=== PATIENT | female | born 1945 | race Caucasian/White ===

== ENCOUNTER 2022-03-21 12:47 | Outpatient (CLI) | payer MEDICARE, OTHER, SELFPAY ==
--- NOTE | 2022-03-21 13:00 | CRLHL7_ITS ---
For Patients: As a result of the Century Cures Act, medical imaging exams and procedure reports are released immediately into your electronic medical record. You may view this report before your referring provider. If you have questions, please contact your health care provider. Indication: Lung nodules Technique: Noncontrast CT chest Comparison: CT abdomen pelvis 01/30/2021 Findings : Thyroid nodules normal caliber thoracic aorta calcified hilar lymph nodes. Heart size normal. No pericardial effusion large hiatal hernia right lower lobe granuloma. Centrilobular nodules in the right upper lobe. 4 millimeter pulmonary nodule peripheral right lower lobe on series 4, image 49 is unchanged. 4 millimeter peripheral right lower lobe nodule on series 4, image 58 is also unchanged. A tiny 2 millimeter micro nodule in the left lower lobe on image 61 is unchanged 4 millimeter left lower lobe nodule on image 67 unchanged. No effusion. A 4 millimeter medial right lower lobe nodule on image 45 is also unchanged. No suspicious bony lesions are seen. Right nephrectomy right retroperitoneal clips Impression: 1. Basilar pulmonary nodules are unchanged with no new nodules seen. Follow-up per Fleischner society guidelines. 2. Centrilobular nodules in the right upper lobe, favor infectious inflammatory processes to include atypical infections. FLEISCHNER SOCIETY GUIDELINES - SOLID NODULES: SINGLE LOW RISK - nodule less than 6 mm: No routine follow-up. - nodule 6-8 mm: CT at 6-12 months, then consider CT at 18-24 months. - nodule greater than 8 mm: Consider CT at 3 months, PET/CT or tissue sampling. SINGLE HIGH RISK - nodule less than 6 mm: Optional CT at 12 months. - nodule 6-8 mm: CT at 6-12 months, then CT at 18-24 months. - nodule greater than 8 mm: Consider CT at 3 months, PET/CT or tissue sampling. MULTIPLE LOW RISK - nodule less than 6 mm: No routine follow-up. - nodule 6-8 mm: CT at 3-6 months, then consider CT at 18-24 months. - nodule greater than 8 mm: CT at 3-6 months, then consider CT at 18-24 months. MULTIPLE HIGH RISK - nodule less than 6 mm: Optional CT at 12 months. - nodule 6-8 mm: CT at 3-6 months, then at 18-24 months. - nodule greater than 8 mm: CT at 3-6 months, then at 18-24 months. Please note that all CT scans at this facility use dose modulation, iterative reconstruction, and/or weight-based dosing when appropriate to reduce radiation dose to as low as reasonably achievable. Dictated by Bianka Davis MD @ 03/21/2022 2:12:36 PM (Electronically Signed)
== END 2022-03-21 12:48 | disposition home or self-care (01) ==
PROVIDERS: PCP Family Medicine; Visit Provider Family Medicine
DX: R91.8 Other nonspecific abnormal finding of lung field (principal)
CPT/HCPCS: 71250

== ENCOUNTER 2025-01-22 16:52 | Emergency (ER) | payer OTHER, SELFPAY ==
--- OUTSIDE RECORDS SUMMARY | 2024-12-17 09:59 | XMS_ITS | Encounter Summary ---
Author Organization [facility] Address [address] [place] [address] Care Team Providers Care Power Reactor Operator Name Role Phone None Reported, Pcp Primary Care Provider Unavail able Encounter Details Date Type Department Care Team (Latest Contact Info) Description 12/17/2024 9:59 AM CDT - 12/17/2024 11:59 PM CDT Hospital Encounter Department of Laboratory Medicine in [address] [phone] Traci Tripp M.D., Ph.D. 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 amLODIPine (Norvasc) 5 mg tablet Take 5 mg by mouth daily. 12/10/2024 cholecalciferol (Vitamin D3) 50 mcg (2,000 Unit) tablet Take 50 mcg by mouth daily. 11/19/2024 Constulose 10 gram/15 mL solution 10 g as needed. 10/21/2024 famotidine (Pepcid) 10 mg tablet Take 10 mg by mouth daily. 11/05/2024 magnesium gluconate (Mag-G) 27 mg of magnesium (500 mg) tablet Take 54 mg of magnesium by mouth 2 (two) times a day. 12/03/2024 metoprolol succinate (Toprol XL) 50 mg 24 hr tablet Take 50 mg by mouth daily. 10/08/2024 omeprazole (PriLOSEC OTC) [address] tablet Take 40 mg by mouth. 07/25/2023 ondansetron (Zofran) 4 mg tablet Take 4 mg by mouth as needed for nausea. 10/15/2024 oxyCODONE (Roxicodone) 5 mg immediate release tablet Take 5 mg by mouth 2 (two) times a day as needed. 08/28/2024 sennosides-docus ate sodium (Senokot-S) 8.6-50 mg per tablet Take 1 tablet by mouth daily as needed. 07/04/2024 thiamine (vitamin B-1) 50 mg tablet Take 50 mg by mouth daily. carvediloL (Coreg) 12.5 mg tablet Take 1 tablet (12.5 mg total) by mouth 2 (two) times a day with meals. 180 tablet 3 09/19/2024 lisinopril-hydro CHLOROthiazide (PRINZIDE,ZESTOR ETIC) 20-25 mg per tablet Take 1 tablet by mouth 2 (two) times a day. 03/24/2022 5 documented as of this encounter Plan of Treatment Upcoming Encounters Date Type Department Care Team (Late st Contact Info) Description 01/23/2025 12:30 PM CDT Appointment Department of Radiology, [facility], in [place], [place] [address] [place] [address] Perfecto Clement II, M.D. [address] [phone] 02/26/2025 8:30 AM CDT Appointment Department of Laboratory Medicine in [address] [phone] Traci Tripp M.D., Ph.D. [address] [place] [phone] 02/26/2025 8:40 AM CDT Appointment Department of Laboratory Medicine in [address] [phone] Traci Tripp M.D., Ph.D. [address] [place] [phone] 02/27/2025 10:15 AM CDT Office Visit Department of Nephrology in [address] [phone] America Matamoros APRN, C.N.P., M.S. [address] [place] [phone] documented as of this encounter Procedures Procedure Name Priority Date/Time Associated Diagnosis Comments RENAL FUNCTION PANEL, S Routine 12/17/2024 10:08 AM CDT Hypertension Essential Primary Chronic Kidney Disease (CKD), Stage 3b Glomerular Filtration Rate (GFR) 30 To 44 (HCC) Mass Kidney CYSTATIN C WITH EGFR Routine 12/17/2024 10:08 AM CDT Hypertension Essential Primary Chronic Kidney Disease (CKD), Stage 3b Glomerular Filtration Rate (GFR) 30 To 44 (HCC) Mass Kidney CBC WITH DIFFERENTIAL, B Routine 12/17/2024 10:08 AM CDT Hypertension Essential Primary Chronic Kidney Disease (CKD), Stage 3b Glomerular Filtration Rate (GFR) 30 To 44 (HCC) Mass Kidney documented in this encounter Results * (ABNORMAL) Renal Function Panel (12/17/2024 10:08 AM CDT) Potassium, P 4.1 3.6 - 5.2 mmol/L 12/17/2024 10:27 AM CDT CNFL Sodium, P 132(L) 135 - 145 mmol/L 12/17/2024 10:27 AM CDT CNFL Chloride, P 97(L) 98 - 107 mmol/L 12/17/2024 10:27 AM CDT CNFL Bicarbonate, P 22 22 - 29 mmol/L 12/17/2024 10:26 AM CDT CNFL Anion Gap, P 13 7 - 15 12/17/2024 10:27 AM CDT CNFL BUN (Blood Urea Nitrogen), P 25(H) 6 - 21 mg/dL 12/17/2024 10:26 AM CDT CNFL Creatinine 1.57(H) 0.59 - 1.04 mg/dL 12/17/2024 10:26 AM CDT CNFL Estimated GFR (eGFR) 33(L) >=60 mL/min/BSA 12/17/2024 10:26 AM CDT CNFL Comment: Estimated GFR calculated using the 2020 CKD_EPI creatinine equation. Calcium, Total, P 9.7 8.8 - 10.2 mg/dL 12/17/2024 10:26 AM CDT CNFL Glucose, P 112 70 - 140 mg/dL 12/17/2024 10:26 AM CDT CNFL Albumin, P 4.1 3.5 - 5.0 g/dL 12/17/2024 10:26 AM CDT CNFL Phosphorus (Inorganic), P 3.0 2.5 - 4.5 mg/dL 12/17/2024 10:26 AM CDT CNFL Blood (Blood, Venous) 12/17/2024 10:08 AM CDT 12/17/2024 10:09 AM CDT us Traci Landaverde M.D., Ph.D. LAB BLOOD ADD- ON Final Result [facility] [address] [place] [phone], [facility] CNFL [place] [address] * (ABNORMAL) Cystatin C with Estimated GFR (12/17/2024 10:08 AM CDT) Pathologist [facility] eGFR by Cystatin C 22(L) >60 mL/min/BSA 12/18/2024 12:42 PM CDT DTL Comment: Estimated GFR calculated using the CKD-EPI Cystatin C (2012) equation. ----ADDITIONAL INFORMATION---- Cystatin C-based eGFR may differ substantially from creatinine- based eGFR in patients with abnormal muscle mass or acutely changing renal function. Please interpret together with relevant clinical features. On 10/08/2020 the cystatin C assay method changed. Cystatin C eGFR results > 50 ml/min/1.73m2 are approximately 10% lower with the new assay. Cystatin C 2.30(H) 0.67 - 1.21 mg/L 12/18/2024 12:42 PM CDT DTL Blood (Blood, Venous) 12/17/2024 10:08 AM CDT 12/18/2024 12:22 PM CDT Traci Landaverde M.D., Ph.D. LAB BLOOD ADD- ON Final Result [facility] [address] [place] [address], [facility] [address] [place] [address] * (ABNORMAL) CBC with Differential, Blood (12/17/2024 10:08 AM CDT) Pathologist [facility] Hemoglobin 11.2(L) 11.6 - 15.0 g/dL 12/17/2024 10:12 AM CDT CNFL Hematocrit 33.4(L) 35.5 - 44.9 % 12/17/2024 10:12 AM CDT CNFL Erythrocytes 3.63(L) 3.92 - 5.13 x10(12)/L 12/17/2024 10:12 AM CDT CNFL MCV 92.0 78.2 - 97.9 fL 12/17/2024 10:12 AM CDT CNFL RBC Distrib Width 12.0(L) 12.2 - 16.1 % 12/17/2024 10:12 AM CDT CNFL Platelet Count 238 157 - 371 x10(9)/L 12/17/2024 10:12 AM CDT CNFL Leukocytes 8.4 3.4 - 9.6 x10(9)/L 12/17/2024 10:12 AM CDT CNFL Neutrophils 5.79 1.56 - 6.45 x10(9)/L 12/17/2024 10:12 AM CDT CNFL Lymphocytes 1.71 0.95 - 3.07 x10(9)/L 12/17/2024 10:12 AM CDT CNFL Monocytes 0.84(H) 0.26 - 0.81 x10(9)/L 12/17/2024 10:12 AM CDT CNFL Eosinophils 0.06 0.03 - 0.48 x10(9)/L 12/17/2024 10:12 AM CDT CNFL Basophils <0.04 0.01 - 0.08 x10(9)/L 12/17/2024 10:12 AM CDT CNFL Blood (Blood, Venous) 12/17/2024 10:08 AM CDT 12/17/2024 10:09 AM CDT us Traci Landaverde M.D., Ph.D. LAB BLOOD ADD- ON Final Result [facility] [address] [place], [place] [id number], [facility] CNFL [place] [address] documented in this encounter Visit Diagnoses Diagnosis Hypertension Essential Primary Chronic Kidney Disease (CKD), Stage 3b Glomerular Filtration Rate (GFR) 30 To 44 (HCC) Mass Kidney documented in this encounter Care Teams Power Reactor Operator Relationship Specialty Start Date End Date None Reported, Pcp PCP - General 03/22/24 documented as of this encounter
--- OUTSIDE RECORDS SUMMARY | 2024-12-17 09:59 | XMS_ITS | Encounter Summary ---
Author Organization [facility] Address [address] [place] [address] Care Team Providers Care Cesspool Cleaner Name Role Phone None Reported, Pcp Primary Care Provider Unavail able Encounter Details Date Type Department Care Team (Latest Contact Info) Description 12/17/2024 9:59 AM CDT - 12/17/2024 11:59 PM CDT Hospital Encounter Department of Laboratory Medicine in [address] [phone] Traci Tripp M.D., Ph.D. 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 [address] [phone] 02/26/2025 8:30 AM CDT Appointment Department of Laboratory Medicine in [address] [phone] Traci Tripp M.D., Ph.D. [address] [place] [phone] 02/26/2025 8:40 AM CDT Appointment Department of Laboratory Medicine in [address] [phone] Traci Tripp M.D., Ph.D. [address] [place] [phone] 02/27/2025 10:15 AM CDT Office Visit Department of Nephrology in [address] [phone] America Matamoros APRN, C.N.P., M.S. [address] [place] [phone] documented as of this encounter Procedures Procedure Name Priority Date/Time Associated Diagnosis Comments ALBUMIN, RANDOM, U Routine 12/17/2024 10 :12 AM CDT Hypertension Essential Primary Chronic Kidney Disease (CKD), Stage 3b Glomerular Filtration Rate (GFR) 30 To 44 (HCC) Mass Kidney PROTEIN/CREATININE RATIO, RANDOM, URINE Routine 12/17/2024 10:12 AM CDT Hypertension Essential Primary Chronic Kidney Disease (CKD), Stage 3b Glomerular Filtration Rate (GFR) 30 To 44 (HCC) Mass Kidney URINALYSIS WITH MICROSCOPIC Routine 12/17/2024 10:12 AM CDT Hypertension Essential Primary Chronic Kidney Disease (CKD), Stage 3b Glomerular Filtration Rate (GFR) 30 To 44 (HCC) Mass Kidney documented in this encounter Results * (ABNORMAL) Urinalysis, with Microscopic: Urine, Midstream (12/17/2024 10:12 AM CDT) Source Urine, Urine, Midstream 12/17/2024 10:12 AM CDT CNFL Clarity Clear Clear 12/17/2024 10:15 AM CDT CNFL Color Yellow 12/17/2024 10:15 AM CDT CNFL Comment: ----REFERENCE VALUE---- Colorless Yellow Eva Blood Trace(A) Negative 12/17/2024 10:15 AM CDT CNFL Nitrite Negative Negative 12/17/2024 10:15 AM CDT CNFL Leukocyte Esterase Large(A) Negative 12/17/2024 10:15 AM CDT CNFL Protein Negative mg/dL 12/17/2024 10:15 AM CDT CNFL Comment: ----REFERENCE VALUE---- Negative Trace Glucose Negative Negative mg/dL 12/17/2024 10:15 AM CDT CNFL Ketones, QI(U) Negative Negative mg/dL 12/17/2024 10:15 AM CDT CNFL Bilirubin Negative Negative 12/17/2024 10:15 AM CDT CNFL pH 6.5 5.0 - 8.0 12/17/2024 10:15 AM CDT CNFL Specific [place] 1.010 1.001 - 1.035 12/17/2024 10:15 AM CDT CNFL Urobilinogen 0.2 0.2 - 1.0 mg/dL 12/17/2024 10:15 AM CDT CNFL White Blood Cells >100(A) /hpf 12/17/2024 10:29 AM CDT CNFL Comment: ----REFERENCE VALUE---- Males: 0-3 Females: 0-10 Unknown: 0-10 Red Blood Cells Occ-2 0 - 2 /hpf 10:29 AM CDT CNFL Squamous Cells Occ-3 /hpf 12/17/2024 10:29 AM CDT CNFL Bacteria Present(A) None Seen 12/17/2024 10:29 AM CDT CNFL Urine (Urine, Midstream) 12/17/2024 10:12 AM CDT 12/17/2024 10:12 AM CDT us Traci Landaverde M.D., Ph.D. LAB URINE ORDE RABLES Final Result [facility] [address] [place] [address], [facility] CNFL [facility] in [address] [place] [address] * (ABNORMAL) Albumin, Random, Urine (12/17/2024 10:12 AM CDT) Microalbumin 22.9 mg/L 12/17/2024 1:03 PM CDT [facility] Creatinine 33 mg/dL 12/17/2024 1:03 PM CDT [facility] Albumin/Creatinin e Ratio 69(H) <25 mg/g 12/17/2024 1:03 PM CDT [facility] Urine (Urine, Midstream) 12/17/2024 10:12 AM CDT 12/17/2024 12:32 PM CDT us Traci Landaverde M.D., Ph.D. LAB URINE ORDE RABLES Final Result [facility] [address] [place] [address], [facility] in [place] [address] [place] [phone] * (ABNORMAL) Protein/Creatinine Ratio, Random, Urine (12/17/2024 10:12 AM CDT) Protein, Total, Random, U 8 mg/dL 12/17/2024 1:03 PM CDT [facility] Creatinine, Random, U 33 16 - 326 mg/dL 12/17/2024 1:03 PM CDT [facility] Protein/Creati nine Ratio 0.24(H) <0.18 mg/mg 12/17/2024 1:03 PM CDT [facility] Urine (Urine, Midstream) 12/17/2024 10:12 AM CDT 12/17/2024 12:32 PM CDT us Traci Landaverde M.D., Ph.D. LAB URINE TIFFANY GOMEZ Final Result [facility] [address] [place] [address], [facility] in [place] [address] [place] [phone] documented in this encounter Visit Diagnoses Diagnosis Hypertension Essential Primary Chronic Kidney Disease (CKD), Stage 3b Glomerular Filtration Rate (GFR) 30 To 44 (HCC) Mass Kidney documented in this encounter Care Teams Cesspool Cleaner Relationship Specialty Start Date End Date None Reported, Pcp PCP - General 03/22/24 documented as of this encounter
--- OUTSIDE RECORDS SUMMARY | 2024-12-19 10:30 | XMS_ITS | Encounter Summary ---
Author Organization [facility] Address [address] [place] [address] Care Team Providers Care Video Intern Name Role Phone None Reported, Pcp Primary Care Provider Unavail able Reason for Referral * Outpatient (Routine) - Authorized Specialty Diagnoses / Procedures Referred By Kimani mcintosh Referred To Contact Nephrology and Hypertension Traci Tripp M.D., Ph.D. [address] [place] [phone] Phone: tel: fax: [facility] Region Referral ID Status Reason Start Date Expiration Date V isits Requested Visits Authorized [id number] Authorized 12/19/2024 06/20/2026 1 1 Reason for Visit * Reason Comments Follow-up * Outpatient (Routine) - Closed Specialty Diagnoses / Procedures Referred By Kimani mcintosh Referred To Contact Nephrology and Hypertension Traci Tripp M.D., Ph.D. [address] [place] [phone] Phone: tel: fax: [facility] Region Referral ID Status Reason Start Date Expiration Date Visits Re quested Visits Authorized [id number] Closed 09/19/2024 03/21/2026 1 1 Encounter Details Date Type Department Care Team (Late st Contact Info) Description 12/19/2024 10:30 AM CDT Office Visit Department of Nephrology in [address] [phone] Traci Tripp M.D., Ph.D. [address] [place] [phone] Chronic Kidney Disease (CKD), Stage 3b Glomerular Filtration Rate (GFR) 30 To 44 (HCC) (Primary Dx); Urinary Tract Infection Site Not Specified Discharge Disposition: Home or Self Care Social [...] PM CDT Legal Sex Female 10:56 PM WOOD [employer] Gender Identity Not on file Sexual Orientation Not on file documented as of this encounter Last Filed Vital Signs Vital Sign Reading Time Taken Comments Blood Pressure 153/79 12/19/2024 10:24 AM CDT Pulse 77 12/19/2024 10:22 AM CDT Temperature 36.8 C (98.2 F) 12/19/2024 10:22 AM CDT Respiratory Rate - - Oxygen Saturation 97% 12/19/2024 10: 22 AM CDT Inhaled Oxygen Concentration - - Weight 80.7 kg (177 lb 14.6 oz) 025 10:22 AM CDT Height - - Body Mass Index 36.35 12/07/2023 7:55 AM CDT documented in this encounter Progress Notes * Traci Tripp M.D., Ph.D. - 12/19/2024 10:30 AM CDT PROGRESS NOTE The patient verbally consented to an audio recording of their visit to assist with the completion of documentation. SUBJECTIVE CHIEF COMPLAINT / REASON FOR VISIT Follow up CKD 3B-4 Acquired solitary kidney due to hx of RCC s/p nephrectomy 30 years ago Left renal mass under surveillance by Urology Hypertension management HISTORY OF PRESENT ILLNESS History of Present Illness Mrs. Preeti Corbin is an 79 year old female with chronic kidney disease who presents for nephrology follow-up. Her blood pressure at home has been around 150s-160s/79 mmHg, sometimes lower, but she has not beenmonitoring it regularly. She is currently on lisinopril, HCTZ, amlodipine, and carvedilol for bloodpressure management. Her kidney function has been stable, with a creatinine level of 1.57 and cystatin C of 2.3. She is concerned about the long-term stability of her kidney function. She has symptoms suggestive of a urinary tract infection, including dysuria and reduced urine output. She has experienced similar symptoms in the past, which were confirmed as a UTI. She is allergic to sulfa and penicillin, and has had nausea with Cipro. No fever or other systemic symptoms related to the urinary tract infection. She experiences swelling in her legs, which has been managed with diuretics. Her weight can increase to about 180 pounds, and her legs feel like 'tree stumps'. She was previously on Lasix, which she tolerated well except for occasional stomach upset. She has been using diuretics intermittently based on swelling. She lives with her daughter, which she finds stressful due to differing opinions, particularly about political topics. This stress may be affecting her blood pressure. She tries to manage stress by walking, meditating, and praying. OBJECTIVE BP 153/79 Pulse 77 Temp 36.8 ??C Wt 80.7 kg SpO2 97% BMI 36.35 kg/m?? PHYSICAL EXAMINATION Physical Exam VITALS: BP- 153/79 MEASUREMENTS: Weight- 180. DIAGNOSTICS I have reviewed available labs in detail with patient. ASSESSMENT / PLAN #1 Urinary Tract Infection Site Not Specified #2 Chronic Kidney Disease (CKD), Stage 3b Glomerular Filtration Rate (GFR) 30 To [address]) Assessment & Plan Chronic Kidney Disease Stage 3-4 Chronic kidney disease is well-managed with creatinine at 1.57 and cystatin C at 2.3, indicating function between stage 3 and stage 4. Kidney function remains stable compared to the last visit. Bloodpressure control is crucial to prevent further kidney damage. Monitor kidney function with labs in February and adjust blood pressure medications to improve control. Hypertension Blood pressure is 153/79, indicating suboptimal control. Stress from her living situation may contribute to elevated blood pressure. Adjust the antihypertensive regimen to achieve better control and prevent kidney damage. Increase carvedilol to 25 mg, change lisinopril to once daily without hydrochlorothiazide (due to hyponatremia seen in labs), and start furosemide (Lasix) 20 mg, adjusting as nee ded during next visit if well tolerated. Monitor blood pressure regularly and encourage stress management techniques such as walking, meditation, and prayer. Peripheral Edema She experiences recurrent leg swelling, exacerbated by the use of amlodipine. Swelling improved with Lasix in the past, hydrochlorothiazide may contribute to low sodium levels. Although Lasix contains sulfa, she has tolerated it in the past with only mild stomach upset. Discontinue hydrochlorothiazide, start furosemide (Lasix) 20 mg, and adjust as needed. Monitor for improvement in edema, she mayneed to be off amlodipine if swelling is not improved. Recurrent Urinary Tract Infection She reports symptoms consistent with a urinary tract infection, including sensation and urgency. Previous tests confirmed infection. Allergies to sulfa, penicillin, and ciprofloxacin complicate antibiotic selection. Obtain a urine culture to identify the causative organism and guide treatment. Prescribe an appropriate antibiotic based on culture results, avoiding known allergies. Patient has Hx of RCC s/p right nephrectomy 30 years ago Left renal mass under surveillance by Urology Return visit in 2 months documented in this encounter Plan of Treatment Upcoming Encounters Date Type Department Care Team (Late st Contact Info) Description 01/23/2025 12:30 PM CDT Appointment Department of Radiology, [facility], in [place], [place] [address] [place] [phone] Perfecto Clement II, M.D. [address] [phone] 02/26/2025 8:30 AM CDT Appointment Department of Laboratory Medicine in [address] [phone] Traci Tripp M.D., Ph.D. [address] [place] [phone] 02/26/2025 8:40 AM CDT Appointment Department of Laboratory Medicine in [address] [phone] Traci Tripp M.D., Ph.D. [address] [place] [phone] 02/27/2025 10:15 AM CDT Office Visit Department of Nephrology in [address] [phone] America Matamoros APRN, C.N.PAminata, M.S. [address] [place] [phone] Scheduled Orders Name Type Priority Associated Diagnoses Orde r Schedule CBC with Differential, Blood Lab Routine Chronic Kidney Disease (CKD), Stage 3b Glomerular Filtration Rate (GFR) 30 To 44 (HCC) Expected: 02/18/2025 (Approximate), Expires: 05/19/2025 Cystatin C with Estimated GFR Lab Routine Chronic Kidney Disease (CKD), Stage 3b Glomerular Filtration Rate (GFR) 30 To 44 (HCC) Expected: 02/18/2025 (Approximate), Expires: 05/19/2025 Protein/Creatinine Ratio, Random, Urine Lab Routine Chronic Kidney Disease (CKD), Stage 3b Glomerular Filtration Rate (GFR) 30 To 44 (HCC) Expected: 02/18/2025 (Approximate), Expires: 05/19/2025 Renal Function Panel Lab Routine Chronic Kidney Disease (CKD), Stage 3b Glomerular Filtration Rate (GFR) 30 To 44 (HCC) Expected: 02/18/2025 (Approximate), Expires: 05/19/2025 Albumin, Random, Urine Lab Routine Chronic Kidney Disease (CKD), Stage 3b Glomerular Filtration Rate (GFR) 30 To 44 (HCC) Expected: 02/18/2025 (Approximate), Expires: 05/19/2025 Urinalysis, with Microscopic: Urine, Midstream Lab Routine Chronic Kidney Disease (CKD), Stage 3b Glomerular Filtration Rate (GFR) 30 To 44 (HCC) Expected: 02/18/2025 (Approximate), Expires: 05/19/2025 Scheduled Referrals Name Type Priority Associated Diagnoses Order Schedule Nephrology and Hypertension office visit (clinic) Outpatient Referral Routine Expected: 02/18/2025 (Approximate), Expires: 05/19/2025 documented as of this encounter Results * (ABNORMAL) Basic Metabolic Panel (01/03/2025 8:11 AM CDT) Potassium, P 4.1 3.6 - 5.2 mmol/L 01/03/2025 8:36 AM CDT CNFL Sodium, P 139 135 - 145 mmol/L 01/03/2025 8:36 AM CDT CNFL Chloride, P 104 98 - 107 mmol/L 01/03/2025 8:36 AM CDT CNFL Bicarbonate, P 21(L) 22 - 29 mmol/L 01/03/2025 8:36 AM CDT CNFL Anion Gap, P 14 7 - 15 01/03/2025 8:36 AM CDT CNFL BUN (Blood Urea Nitrogen), P 20 6 - 21 mg/dL 01/03/2025 8:36 AM CDT CNFL Creatinine 1.37(H) 0.59 - 1.04 mg/dL 01/03/2025 8:36 AM CDT CNFL Estimated GFR (eGFR) 39(L) >=60 mL/min/BSA 01/03/2025 8:36 AM CDT CNFL Comment: Estimated GFR calculated using the 2020 CKD_EPI creatinine equation. Calcium, Total, P 9.6 8.8 - 10.2 mg/dL 01/03/2025 8:36 AM CDT CNFL Glucose, P 98 70 - 140 mg/dL 01/03/2025 8:36 AM CDT CNFL Blood (Blood, Venous) 01/03/2025 8:11 AM CDT 01/03/2025 8:16 AM CDT us Traci Landaverde M.D., Ph.D. LAB BLOOD ADD- ON Final Result [facility] [address] [place] [phone], [facility] CNFL [facility] in [address] [phone] * Bacterial Culture, Aerobic + Susceptibility, Urine (12/19/2024 11:09 AM CDT) Urine Culture No growth after 1 day of incubation. 12/20/2024 10:16 AM CDT ECLR Urine (Urine, Midstream) 12/19/2024 11:09 AM CDT 12/19/2024 3:02 PM CDT Comment:Specimen Source Site : Urine us Traci Landaverde M.D., Ph.D. LAB MICROBIOLO GY - GENERAL ORDERABLES Final Result [facility] [address] [place] [id number], [facility] ECLR [facility] in [address] [address] documented in this encounter Visit Diagnoses Diagnosis Chronic Kidney Disease (CKD), Stage 3b Glomerular Filtration Rate (GFR) 30 To 44 (HCC)- Primary Urinary Tract Infection Site Not Specified documented in this encounter Care Teams Video Intern Relationship Specialty Start Date End Date None Reported, Pcp PCP - General 03/22/24 documented as of this encounter
--- OUTSIDE RECORDS SUMMARY | 2024-12-19 10:48 | XMS_ITS | Encounter Summary ---
Author Organization [facility] Address [address] [place] [address] Care Team Providers Care Spudder Name Role Phone None Reported, Pcp Primary Care Provider Unavail able Encounter Details Date Type Department Care Team (Latest Contact Info) Description 12/19/2024 10:48 AM CDT - 12/19/2024 11:59 PM CDT Hospital Encounter Department of Laboratory Medicine in [address] [phone] Traci Tripp M.D., Ph.D. [address] [place] [phone] Urinary Tract Infection Site Not Specified Discharge [...] PM CDT Legal Sex Female 10:56 PM RN COMPLIANCE Gender Identity Not on file Sexual Orientation Not on file documented as of this encounter Medications at Time of Discharge acetaminophen (TYLENOL) 500 mg capsule Take 2 capsules by mouth 2 (two) times a day as needed for pain. amLODIPine (Norvasc) 5 mg tablet Take 5 mg by mouth daily. 12/10/2024 carvediloL (Coreg) 25 mg tablet Take 1 tablet (25 mg total) by mouth 2 (two) times a day with meals. 180 tablet 3 12/19/2024 cholecalciferol (Vitamin D3) 50 mcg (2,000 Unit) tablet Take 50 mcg by mouth daily. 11/19/2024 Constulose 10 gram/15 mL solution 10 g as needed. 10/21/2024 famotidine (Pepcid) 10 mg tablet Take 10 mg by mouth daily. 11/05/2024 furosemide (Lasix) 20 mg tablet Take 1 tablet (20 mg total) by mouth daily. 90 tablet 3 12/19/2024 lisinopriL 40 mg tablet Take 1 tablet (40 mg total) by mouth daily. 90 tablet 3 12/19/2024 magnesium gluconate (Mag-G) 27 mg of magnesium [...] tablet Take 50 mg by mouth daily. documented as of this encounter Plan of Treatment Upcoming Encounters Date Type Department Care Team (Late st Contact Info) Description 01/23/2025 12:30 PM CDT Appointment Department of Radiology, [facility], in [place], [place] [address] [place] [phone] Perfecto Clement II, M.D. [address] [phone] 02/26/2025 8:30 AM CDT Appointment Department of Laboratory Medicine in [place] [phone] Traci Tripp M.D., Ph.D. [address] [place] [phone] 02/26/2025 8:40 AM CDT Appointment Department of Laboratory Medicine in [address] [phone] Traci Tripp M.D., Ph.D. [address] [place] [phone] 02/27/2025 10:15 AM CDT Office Visit Department of Nephrology in [address] [phone] America Matamoros APRN, C.N.P., M.S. [address] [place] [phone] documented as of this encounter Procedures Procedure Name Priority Date/Time Associated Diagnosis Comments BACTERIAL CULTURE, AEROBIC + SUSC, URINE Routine 12/19/2024 11:09 AM CDT Urinary Tract Infection Site Not Specified documented in this encounter Results * Bacterial Culture, Aerobic + Susceptibility, Urine (12/19/2024 11:09 AM CDT) Urine Culture No growth after 1 day of incubation. 12/20/2024 10:16 AM CDT ECLR Urine (Urine, Midstream) 12/19/2024 11:09 AM CDT 12/19/2024 3:02 PM CDT Comment:Specimen Source Site : Urine us Traci Landaverde M.D., Ph.D. LAB MICROBIOLO GY - GENERAL ORDERABLES Final Result [facility] [address] [place] [address], [facility] ECLR [facility] in [place] [address] [place] [address] documented in this encounter Visit Diagnoses Diagnosis Urinary Tract Infection Site Not Specified documented in this encounter Care Teams Spudder Relationship Specialty Start Date End Date None Reported, Pcp PCP - General 03/22/24 documented as of this encounter
--- OUTSIDE RECORDS SUMMARY | 2024-12-26 08:40 | XMS_ITS | Encounter Summary ---
Author Organization [facility] er Address [address] [place] [address] Care Team Providers Care Senior Director Of Global Commercial Technology Solutions Name Role Phone Perfecto Clement MD Primary Care Provider + [phone] Reason for Visit * Reason Comments Follow-up Echo Encounter Details Date Type Department Care Team (Late st Contact Info) Description 12/26/2024 8:40 AM CDT Office Visit [place] [address] [facility] [address] [place] [address] [place] [address] [place] [phone] Chronic diastolic heart failure (HCC) (Primary Dx); Essential (primary) hypertension; Chronic renal failure, stage 3b (HCC); H/O right nephrectomy; Prediabetes; Neuropathic pain Social History Tobacco Use Types Packs/Day Years Used Date Smoking Tobacco: Never Passive Smoke Exposure: Never Smokeless Tobacco: Never Tobacco Cessation:Counseling Given: Not Answered Alcohol Use Standard Drinks/Week Comments Yes 0 (1 standard drink = 0.6 oz pur e alcohol) Rarely B1300 Health Literacy Answer Date Recor ded How often do you need to hav e someone help you when you read instructions, pamphlets, or other written material from your doctor or pharmacy? Never 07/04/2024 [employer] Utilities Answer Date Recorded In the past 12 months has e [employer], gas, oil, or water [employer] threatened to shut off services in your home? No 07/04/2024 Humiliation, Afraid, Rape, and Kick questionnair e Answer Date Recorded Within the last year, have y ou been afraid of your partner or ex-partner? No 07/04/2024 Within the last year, have y ou been humiliated or emotionally abused in other ways by your partner or ex-partner? No Within the last year, have y ou been kicked, hit, slapped, or otherwise physically hurt by your partner or ex-partner? No 07/04/2024 Within the last year, have y ou been raped or forced to have any kind of sexual activity by your partner or ex-partner? No 07/04/2024 Social Connection and Isolation Panel [NHANES] A nswer Date Recorded In a typical week, how many times do you talk on the phone with family, friends, or neighbors? Twice a week 07/04/2024 How often do you get together with friends or re latives? Once a week 07/04/2024 How often do you attend oriental orthodox or roman catholic serv ices? Never 07/04/2024 Do you belong to any clubs o r organizations such as oriental orthodox groups, unions, fraternal or athletic groups, or school groups? No 07/04/2024 How often do you attend meet ings of the clubs or organizations you belong to? Never 07/04/2024 Are you , , di vorced, , never , or living with a partner? 07/04/2024 AUDIT-C Answer Date Recorded Q1: How often do you have a drink containing alcohol? Never 07/04/2024 Q2: How many drinks containi ng alcohol do you have on a typical day when you are drinking? Patient does not drink Q3: How often do you have si x or more drinks on one occasion? Never 07/04/2024 Overall Financial Resource Strain (CARDIA) Answe r Date Recorded How hard is it for you to pa y for the very basics like food, housing, medical care, and heating? Not very hard 07/04/2024 PHQ-2 Answer Date Recorded PHQ-9 Total Score 0 10/08/2024 [facility] [place] of Occupat ional Health - Occupational Stress Questionnaire Answer Date Recorded Do you feel stress - tense, restless, nervous, or anxious, or unable to sleep at night because your mind is troubled all the time - these days? Not at all 07/04/2024 Exercise Vital Sign Answer Date Recorde d On average, how many days pe r week do you engage in moderate to strenuous exercise (like a brisk walk)? 1 day 07/04/2024 On average, how many minutes do you engage in exercise at this level? 20 min 07/04/2024 Hunger Vital Sign Answer Date Recorded Within the past 12 months, y ou worried that your food would run out before you got the money to buy more. Never true 07/04/19 25 Within the past 12 months, t he food you bought just didn't last and you didn't have money to get more. Never true 07/04/2024 PRAPARE - Transportation Answer Date Re corded In the past 12 months, has l ack of transportation kept you from medical appointments or from getting medications? No 06/16 In the past 12 months, has l ack of transportation kept you from meetings, work, or from getting things needed for daily living? No 07/04/2024 Housing Stability Vital Sign Answer Sharath e Recorded In the last 12 months, was t here a time when you were not able to pay the mortgage or rent on time? No 09/20/2023 In the last 12 months, how many places have you lived? 1 09/20/2023 In the last 12 months, was t here a time when you did not have a steady place to sleep or slept in a prison (including now)? No 09/20/2023 Housing Stability Vital Sign Answer Sharath e Recorded In the last 12 months, was t here a time when you were not able to pay the mortgage or rent on time? No 07/04/2024 In the past 12 months, how m any times have you moved where you were living? 0 07/04/2024 At any time in the past 12 m [facility], were you homeless or living in a prison (including now)? No 07/04/2024 Interpersonal Safety Questionnaire Answer Date Recorded How often does anyone, misha farfan family and friends, physically hurt you? Never 07/04/2024 How often does anyone, misha farfan family and friends, insult or talk down to you? Never 07/04/2024 How often does anyone, misha farfan family and friends, threaten you with harm? Never 07/04/2024 How often does anyone, inclu ding family and friends, threaten you with harm? Never 07/04/2024 Education Answer Date Recorded What is the highest level of school you have completed or the highest degree you have received? Master's degree (e.g., MA, MS, Nicolette, MEd, MIDDLE SCHOOL PE TEACHER, YVAN) 02/02/2021 Comments No Sex and Gender Information Value Date Recorded Sex Assigned at Not on file Legal Sex Female 9:10 PM CDT Gender Identity Not on file Sexual Orientation Not on file Occupation Industry Job Start Date Job End Date Retired Not on file Not on file Not on file documented as of this encounter Last Filed Vital Signs Vital Sign Reading Time Taken Comments Blood Pressure 166/76 12/26/2024 8:35 AM CDT Pulse 64 12/26/2024 8:35 AM CDT Temperature 37.1 C (98.8 F) 12/26/2024 8:35 AM CDT Respiratory Rate 16 12/26/2024 8:35 AM CDT Oxygen Saturation 98% 12/26/2024 8:35 AM CDT Inhaled Oxygen Concentration - - Weight 80.1 kg (176 lb 8 oz) 12/26/2024 8:35 AM CDT Height - - Body Mass Index 35.63 11/12/2024 9:57 AM CDT documented in this encounter Progress Notes * Paul Osorio MD - 12/26/2024 8:40 AM CDT Images from the original note were not included. CARDIOLOGY OUTPATIENT SUBSEQUENT VISIT NOTE CHIEF COMPLAINT/REASON FOR VISIT Follow-up on echocardiogram results HISTORY OF PRESENT ILLNESS/PAST CARDIAC HISTORY Preeti Corbin is a 79 y.o. female who is here for follow-up of echocardiogram results. In the interim, she has continued to follow with PCP Dr. Clement, with a focus on longitudinal renal functionand blood pressure. Denies currently orthopnea, or PND, she does have some intermittent lower extremity edema that appears to be dependent. She did see Dr. Martinez from nephrology at [place] with very good recommendations. DIAGNOSTICS Comprehensive TTE 12/04/2024 VISIT DIAGNOSES 1. Chronic diastolic heart failure (HCC) 2. Essential (primary) hypertension 3. Chronic renal failure, stage 3b (HCC) 4. H/O right nephrectomy 5. Prediabetes 6. Neuropathic pain ASSESSMENT / PLAN We did spend the majority of the time this morning discussing about the results of the echocardiogram and the clinical significance. As previously mentioned, based on her initial presenting congestive symptoms, and with the current echocardiogram findings, my impression is that she does have a phenotype of chronic diastolic heart failure. We spoke about natural history, potential triggers, dietary considerations, symptoms and signs, as well as longitudinal treatment strategies and prognosis. At this point she appears to be euvolemic, [place] heart association class I, which is supported by the normal central venous pressures. Nephrology provided some interim recommendations, we appreciate teamwork and assistance, changes and prescriptions were provided and she already picked those from the family fare but wanted to check with myself and Dr. Clement about adequacy of recommendations. Plan - I agree with the recommendations from Dr. Martinez from Nephrology, discontinuation of hydrochlorothiazide, substitution by furosemide which would be most consistent with her diagnosis and long-term management, torsemide can also be a future option if we find problems with recurrent congestive symptoms - I agree with the recommendation on adding carvedilol as a substitution for metoprolol for improved blood pressure control, which is a major target for decreasing cardiovascular and renal morbidity and mortality, ideal goal less than 130/80 mmHg and average - She will continue to follow with Dr. Clement longitudinally, I also instructed her on dietary changes the importance of sodium, and wearing compression garments, she does not like the typical elasticones, perhaps there may be a vendor in the area that works with custom Velcro garments, which she would be open to trying - As she follows with Dr. Clement, and we make advances in normalization of blood pressure, consideration could be given to the addition of empagliflozin 10 mg daily, in order to mitigate progression of her CKD and long-term management of chronic diastolic heart failure (both FDA approved indications, although they could require a prior Auth) I would like to meet with Mrs. Corbin in about 6 months to continue team collaboration and cardiovascular surveillance. Thank you so much for your referral, please let us know if there are any additional questions or changes in status/developments. MARGIN CODE [id number] Total time: 40 min, including electronic medical records and diagnostic testing review, direct [id number] contact, counseling and education, and preparation of clinical documentation. documented in this encounter Plan of Treatment Not on file documented as of this encounter Visit Diagnoses Diagnosis Chronic diastolic heart failure (HCC)- Primary Chronic diastolic heart failure Essential (primary) hypertension Unspecified essential hypertension Chronic renal failure, stage 3b (HCC) H/O right nephrectomy Prediabetes Other abnormal glucose Neuropathic pain documented in this encounter Care Teams Senior Director Of Global Commercial Technology Solutions Relationship Specialty Start Date End Date Perfecto Clement MD [address] [place] [address] PCP - General Family Medicine 02/02/21 documented as of this encounter
--- OUTSIDE RECORDS SUMMARY | 2024-12-26 10:00 | XMS_ITS | Encounter Summary ---
Author Organization [facility] er Address [address] [place] [address] Care Team Providers Care Chief Cloth Finishing Range Operator Name Role Phone Perfecto Clement MD Primary Care Provider [phone] Reason for Visit * Reason Comments UTI Encounter Details Date Type Department Care Team (Late st Contact Info) Description 12/26/2024 10:00 AM CDT Office Visit [address] [address] Perfecto Clement MD [address] [place] [phone] Urinary frequency (Primary Dx); Essential (primary) hypertension; Gastroesophageal reflux disease, unspecified whether esophagitis present; Chronic renal failure, stage 3b (HCC); Chronic bilateral low back pain with bilateral sciatica Social History Tobacco Use Types Packs/Day Years Used Date Smoking Tobacco: Never Passive Smoke Exposure: Never Smokeless Tobacco: Never Alcohol Use Standard Drinks/Week Comments Yes 0 (1 standard drink = 0.6 oz pur e alcohol) Rarely B1300 Health Literacy Answer Date Recor ded How often do you need to hav e someone help you when you read instructions, pamphlets, or other written material from your doctor or pharmacy? Never 07/04/2024 [facility] Utilities Answer Date Recorded In the past 12 months has e [employer], gas, oil, or water [employer] threatened to shut off services in your [...] often do you attend oriental orthodox or presybeterian serv ices? Never 07/04/2024 Do you belong [...] Date Recorded PHQ-9 Total Score 0 10/08/2024 [facility] [place] of Occupat ional Health - Occupational Stress [...] place to sleep or slept in a chcf (including now)? No 09/20/2023 Housing Stability Vital Sign Answer Sharath e Recorded In the last 12 months, was t here a time when you were not able to pay the mortgage or rent on time? No 07/04/2024 In the past 12 months, how m any times have you moved where you were living? 0 07/04/2024 At any time in the past 12 m [facility], were you homeless or living in a chcf (including now)? No 07/04/2024 Interpersonal Safety Questionnaire Answer Date Recorded How often does anyone, misha farfan family and friends, physically hurt you? Never 07/04/2024 How often does anyone, misha farfan family and friends, insult or talk down to you? Never 07/04/2024 How often does anyone, misha farfan family and friends, threaten you with harm? Never 07/04/2024 How often does anyone, inclu adolph family and friends, threaten you with harm? Never 07/04/2024 Education Answer Date Recorded What is the highest level of school you have completed or the highest degree you have received? Master's degree (e.g., MA, MS, Nicolette, MEd, TRAVELING CRANE OPERATOR, YVAN) 02/02/2021 Comments No Sex and Gender [...] Time Taken Comments Blood Pressure 166/76 12/26/2024 9:35 AM CDT Pulse 64 12/26/2024 9:35 AM CDT Temperature 37.1 C (98.8 F) 12/26/2024 9:35 AM CDT Respiratory Rate 16 12/26/2024 9:35 AM CDT Oxygen Saturation 98% 12/26/2024 9:35 AM CDT Inhaled Oxygen Concentration - - Weight 80.2 kg (176 lb 12.8 oz) 12/26/2024 9:35 AM CDT Height - - Body Mass Index 35.69 11/12/2024 9:57 AM CDT documented in this encounter Patient Instructions * Patient Instructions* Perfecto Clement MD - 12/26/2024 10:00 AM CDT Keep your follow up with your Structural Steel Worker Apprentice in 2 months. Split the Carvedilol in half, take twice per day. Make sure to wear wrist brace when sleeping. documented in this encounter Progress Notes * Perfecto Clement MD - 12/26/2024 10:00 AM CDT Preeti Corbin is a 79 y.o. female here for the following: Chief Complaint Patient presents with UTI History of Present Illness The patient presents with hematuria, left shoulder pain, right carpal tunnel syndrome, and gastrointestinal symptoms. She reports a single instance of a quarter-sized red spot on her underwear last week, without dysuria or increased frequency. Urine analysis today showed trace blood and white cells. She feels a constant urge to urinate with variable volume. She is unsure of her last pelvic exam and wonders if her enlarged uterus could be the source of bleeding. She has known uterine fibroids. Left shoulder pain worsens with lifting or carrying groceries. She recalls a fall on ice a year agobut had no immediate pain. 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 She uses Tylenol and oxycodone for pain. She wears a brace for carpal tunnel syndrome but inconsistently, removing it during sleep. She experiences pain while driving and hand weakness when carrying groceries, so has been wearing the brace more so during the day and if driving. Gastrointestinal symptoms include loss of appetite, sharp pain, frequent burping, and gas. She has not had an endoscopy and is overdue for a colonoscopy due to hx of diverticulitis. Adding pepcid to her omeprazole did provide some relief. She uses a stool softener for constipation which is effective. Muscle cramps have significantly improved. She takes vitamin D. She has been prescribed Lasix but has not started it due to a delay in obtaining the Rx. Her Structural Steel Worker Apprentice thought she was on Carvedilol 12.5 mg but she was not (she is on metoprolol due to not tolerating carvedilol). Objective Vitals: 12/26/24 0935 BP: (!) 166/76 BP Location: Left arm Patient Position: Sitting BP Cuff Size: Adult Pulse: 64 Resp: 16 Temp: 37.1 ??C (98.8 ??F) TempSrc: Temporal SpO2: 98% Weight: 80.2 kg (176 lb 12.8 oz) Physical Exam General Appearance: Normal. Throat: Normal. Neck: Normal. Back, Musculoskeletal: Pain elicited in the anterior left shoulder at bicipital insertion site. No impingement signs, labral tear signs, or rotator cuff tear signs. No swelling or redness. Results - Labs: - Urine done today: Trace blood and white cells - Kidney function done at [facility] several days ago: Stable Creatinine, hyponatremia. - Diagnostic Testing: - Urine culture done several days ago at [facility]: No bacterial growth Assessment & Plan Hematuria vs vaginal bleeding (second instance of this in the past several months) and urinary urgency (chronic): Urine culture negative for infection; trace blood and white cells noted. Kidney function stable. Pelvic exam scheduled next week; ultrasound of uterus if bleeding source unclear. - Plan: - Pelvic exam next week - Ultrasound of uterus if bleeding source unclear - Discussed limiting bladder irritants (for her she drinks diet pepsi once per day and lemonade); scheduling bathroom breaks and pelvic floor muscle strengthening Left shoulder pain: Likely biceps tendinitis. - Plan: - Rest - Physical therapy if needed - Steroid injections discussed could be done if needed Carpal tunnel syndrome: Advised consistent use of wrist brace, especially during sleep. - Plan: - Use wrist brace consistently, especially during sleep Gastrointestinal issues: Symptoms include early satiety, gas, and burping. Pepcid prescription to be renewed. [facility] GI consultation scheduled 01/21/2025. - Plan: - Renew Pepcid prescription and continue omeprazole - GI consultation January Medication management: Continue vitamin D daily. Start carvedilol at lower dose (12.5 mg BID), splitting the 25 mg pills twice daily; discontinue metoprolol. Take Lasix as prescribed. - Plan: - Continue vitamin D daily - Start carvedilol at lower dose, splitting pills twice daily - Discontinue metoprolol - Take Lasix as prescribed - Refilled her oxycodone 5 mg; takes once per day as needed and this condition is stable. CHFpEF and CKD stage III-IV - Continue co-mgt with [facility] and [facility] - Consider addition of SGLT-2 inhibitor if feasible for patient in the future (though as above urinary symptoms will be cautious with this) Cramps: Significant improvement reported. - Plan: - Monitor for any recurrence Follow-up: Pelvic exam next week Diagnosis Plan 1. Urinary frequency Urinalysis with reflex microscopic 2. Essential (primary) hypertension 3. Gastroesophageal reflux disease, unspecified whether esophagitis present famotidine (PEPCID) 10 MG tablet 4. Chronic renal failure, stage 3b (HCC) famotidine (PEPCID) 10 MG tablet 5. Chronic bilateral low back pain with bilateral sciatica oxyCODONE (Roxicodone) 5 MG immediate release tablet Total time spent in patient care was over 30 minutes which included the pre- work, visit work, and post-visit work. documented in this encounter Plan of Treatment Not on file documented as of this encounter Results * (ABNORMAL) Urinalysis with reflex microscopic (12/26/2024 10:11 AM CDT) Type CLEAN CATCH 12/26/2024 10:13 AM CDT [facility] [place] Color, Urine YELLOW YELLOW 12/26/2024 10:13 AM CDT [facility] [place] Clarity, Urine CLEAR CLEAR 12/26/2024 10:13 AM CDT [facility] [place] Glucose, Urine NEGATIVE NEGATIVE mg/dL 12/26/2024 10:13 AM CDT [facility] [place] Bilirubin, Urine NEGATIVE NEGATIVE 12/26/2024 10:13 AM CDT [facility] [place] Ketones, Urine NEGATIVE NEGATIVE mg/dL 12/26/2024 10:13 AM CDT [facility] [place] Specific [place], Urine 1.015 1.000 ->=1.030 12/26/2024 10:13 AM CDT [facility] [place] Blood, Urine TRACE(A) NEGATIVE 12/26/2024 10:13 AM CDT [facility] [place] pH, Urine 5.5 5.0 - 7.0 12/26/2024 10:13 AM CDT [facility] [place] Protein, Urine NEGATIVE NEGATIVE-TRA CE mg/dL 12/26/2024 10:13 AM CDT [facility] [place] Urobilinogen, Urine 0.2 0.2 - 1.0 E.U./dL 12/26/2024 10:13 AM CDT [facility] [place] Nitrite, Urine NEGATIVE NEGATIVE 12/26/2024 10:13 AM CDT [facility] [place] Leukocytes, Urine MODERATE(A) NEGATIVE 12/26/2024 10:13 AM CDT [facility] [place] Urine (Urine, Clean Catch) 12/26/2024 10:11 AM CDT 12/26/2024 10:11 AM CDT Perfecto Clement MD LAB URINE ORDERABLES Final R esult [facility] [address] [facility] [address] [place] [address] documented in this encounter Visit Diagnoses Diagnosis Urinary frequency- Primary Essential (primary) hypertension Unspecified essential hypertension Gastroesophageal reflux disease, unspecified whether esophagitis present Chronic renal failure, stage 3b (HCC) Chronic bilateral low back pain with bilateral sciatica documented in this encounter Care Teams Chief Cloth Finishing Range Operator Relationship Specialty Start Date End Date Perfecto Clement MD [address] [place] [address] PCP - General Family Medicine 02/02/21 documented as of this encounter
--- OUTSIDE RECORDS SUMMARY | 2024-12-26 10:45 | XMS_ITS | Encounter Summary ---
Author Organization [facility] er Address [address] [place] [address] Care Team Providers Care Truck Driver Flatbed Name Role Phone Perfecto Clement MD Primary Care Provider Encounter Details Date Type Department Care Team (Late st Contact Info) Description 12/26/2024 10:45 AM CDT Lab [place] [address] [place] [address] Urinary frequency Social History Tobacco Use Types Packs/Day Years [...] from your doctor or pharmacy? Never 07/04/2024 [facility] Utilities Answer Date Recorded In the past 12 months has [facility] [employer] gas, oil, or water [employer] threatened to shut off services in your [...] week 07/04/2024 How often do you attend sabianist or zoroastrianism serv ices? Never 07/04/2024 Do you belong to any clubs o r organizations such as sabianist groups, unions, fraternal or athletic groups, or [...] Date Recorded PHQ-9 Total Score 0 10/08/[address] [facility] - Occupational Stress Questionnaire Answer Date Recorded [...] place to sleep or slept in a skilled nursing (including now)? No 09/20/2023 Housing Stability Vital Sign Answer Sharath e Recorded In the last 12 months, was t here a time when you were not able to pay the mortgage or rent on time? No 07/04/2024 In the past 12 months, how m any times have you moved where you were living? 0 07/04/2024 At any time in the past 12 m [facility], were you homeless or living in a skilled nursing (including now)? No 07/04/2024 Interpersonal Safety Questionnaire Answer Date Recorded How often does anyone, misha farfan family and friends, physically hurt you? Never 07/04/2024 How often does anyone, misha farfan family and friends, insult or talk down to you? Never 07/04/2024 How often does anyone, misha farfan family and friends, threaten you with harm? Never 07/04/2024 How often does anyone, misha farfan family and friends, threaten you with harm? Never 07/04/2024 Education Answer Date Recorded What is the highest level of school you have completed or the highest degree you have received? Master's degree (e.g., MA, MS, Nicolette, MEd, REPAIRER, YVAN) 02/02/2021 Comments No Sex and Gender Information Value Date Recorded Sex Assigned at Not on file Legal Sex Female 9:10 PM CDT Gender Identity Not on file Sexual Orientation Not on file Occupation Industry Job Start Date Job End Date Retired Not on file Not on file Not on file documented as of this encounter Plan of Treatment Not on file documented as of this encounter Procedures Procedure Name Priority Date/Time Associated Diagnosis Comments URINALYSIS-MICROSCOP IC EXAM (REFLEXED) Routine 12/26/2024 10:11 AM CDT Urinary frequency URINALYSIS WITH REFLEX MICROSCOPIC Routine 12/26/2024 10:11 AM CDT Urinary frequency documented in this encounter Results * (ABNORMAL) Urinalysis-Microscopic Exam (12/26/2024 10:11 AM CDT) Casts, urine NONE SEEN 0-2 Hyaline /lpf 12/27/2024 1:[address] [facility] Significant casts, urine NONE SEEN None Seen /lpf 12/27/2024 1:[address] [facility] RBC, Urine 0-3 0 - 3 /hpf 12/27/2024 1:[address] [facility] WBC, Urine >100(A) /hpf 12/27/2024 1:[address] [facility] Comment: Male: 0-3/hpf Female: 0-10/hpf Squamous Epithelial, Urine FEW Few /lpf 12/27/2024 1:[address] [facility] Trans Epithelial, Urine NONE SEEN 0 - 3 /hpf 12/27/2024 1:[address] [facility] Renal Tubular Cells, Urine NONE SEEN 0 - 1 /hpf 12/27/2024 1:[address] [facility] Bacteria, Urine 1+(A) None Seen - Few /hpf 12/27/2024 1:[address] [facility] Urine Crystals NONE SEEN None Seen 12/27/2024 1:[address] [facility] 12/26/2024 10:1 1 AM CDT 12/27/2024 12:48 PM CDT us Perfecto Clement MD LAB URINE ORDERABLES Final R esult [facility] [address] [place] [address] * (ABNORMAL) Urinalysis with reflex microscopic (12/26/2024 10:11 AM CDT) Type CLEAN CATCH 12/26/2024 10:13 AM CDT [facility] Color, Urine YELLOW YELLOW 12/26/2024 10:13 AM CDT [facility] Clarity, Urine CLEAR CLEAR 12/26/2024 10:13 AM CDT [facility] Glucose, Urine NEGATIVE NEGATIVE mg/dL 12/26/2024 10:13 AM CDT [facility] Bilirubin, Urine NEGATIVE NEGATIVE 12/26/2024 10:13 AM CDT [facility] Ketones, Urine NEGATIVE NEGATIVE mg/dL 12/26/2024 10:13 AM CDT [facility] Specific [place], Urine 1.015 1.000 ->=1.030 12/26/2024 10:13 AM CDT [facility] Blood, Urine TRACE(A) NEGATIVE 12/26/2024 10:13 AM CDT [facility] pH, Urine 5.5 5.0 - 7.0 12/26/2024 10:13 AM CDT [facility] Protein, Urine NEGATIVE NEGATIVE-TRA CE mg/dL 12/26/2024 10:13 AM CDT [facility] Urobilinogen, Urine 0.2 0.2 - 1.0 E.U./dL 12/26/2024 10:13 AM CDT [facility] Nitrite, Urine NEGATIVE NEGATIVE 12/26/2024 10:13 AM CDT [facility] Leukocytes, Urine MODERATE(A) NEGATIVE 12/26/2024 10:13 AM CDT [facility] Urine (Urine, Clean Catch) 12/26/2024 10:11 AM CDT 12/26/2024 10:11 AM CDT Perfecto Clement MD LAB URINE ORDERABLES Final R esult Performing Organization Address City/[facility]/ZIP Co de Phone Number [facility] [address] [place] [address] documented in this encounter Visit Diagnoses Diagnosis Urinary frequency documented in this encounter Care Teams Truck Driver Flatbed Relationship Specialty Start Date End Date Perfecto Clement MD [address] [facility] [address] [place] [address] PCP - General Family Medicine 02/02/21 documented as of this encounter
--- OUTSIDE RECORDS SUMMARY | 2024-12-31 07:44 | XMS_ITS | Encounter Summary ---
Author Organization [facility] Address [address] [place] [address] Care Team Providers Care Technology Integration Specialist Name Role Phone None Reported, Pcp Primary Care Provider Unavail able Reason for Visit * Reason Comments Blood in Urine Presents with report s of small amount of bleeding after urination Encounter Details Date Type Department Care Team (Late st Contact Info) Description 12/31/2024 7:44 AM CDT - 12/31/2024 8:56 AM CDT Emergency [facility] [address] [place] [phone] Severino Angela, ARSLAN, C.N.P., D.N.P. [address] [place] [phone] Bleeding Vaginal (Primary Dx); Acute Cystitis With Hematuria Discharge Disposition: Home or Self Care Social [...] PM CDT Legal Sex Female 10:56 PM BAG PRINTER Gender Identity Not on file Sexual Orientation Not on file documented as of this encounter Last Filed Vital Signs Vital Sign Reading Time Taken Comments Blood Pressure 150/75 12/31/2024 8:00 AM CDT Pulse 61 12/31/2024 8:15 AM CDT Temperature 37 C (98.6 F) 12/31/2024 8:00 AM CDT Respiratory Rate - - Oxygen Saturation 97% 12/31/2024 8:15 AM CDT Inhaled Oxygen Concentration - - Weight - - Height - - Body Mass Index - - documented in this encounter Discharge Instructions * Discharge Instructions* Severino Angela APRN, Donita.N.Rain., D.N.P. - 12/31/2024 8:31 AM CDT Follow-up with the [facility] tomorrow. Based on my exam with erosions on your cervix I recommend referral to Gynecology plus or minus referral to Urology. You can discuss this with your provider tomorrow. Follow-up with the clinic for any other concerns. Thank you for utilizing [facility] for your care! * Attachments The following attachments cannot be sent through Care Everywhere. * Uterine Bleeding After Menopause: What It Means (Maltese) documented in this encounter Medications at Time of Discharge acetaminophen (TYLENOL) 500 mg capsule Take 2 capsules by mouth 2 (two) times a day as needed for pain. amLODIPine (Norvasc) 5 mg tablet Take 5 mg by mouth daily. 12/10/2024 carvediloL (Coreg) 25 mg tablet Take 1 tablet (25 mg total) by mouth 2 (two) times a day with meals. 180 tablet 3 12/19/2024 carvediloL (Coreg) 25 mg tablet Take 12.5 mg by mouth 2 (two) times a day with meals. 12/26/2024 cholecalciferol (Vitamin D3) 50 mcg (2,000 Unit) [...] tablet Take 50 mg by mouth daily. cefdinir (Omnicef) 300 mg capsuleIndicatio ns:Acute Cystitis With Hematuria Take 1 capsule (300 mg total) by mouth 2 (two) times a day before morning and evening meals for 5 days. 10 capsule 12/31/2024 5 documented as of this encounter ED Notes * Severino Angela, ARSLAN, C.N.P., D.N.P. - 12/31/2024 7:50 AM CDT Images from the original note were not included. The patient verbally consented to an audio recording of their visit to assist with the completion of documentation. CHIEF COMPLAINT/REASON FOR VISIT Blood in Urine (Presents with reports of small amount of bleeding after urination) HISTORY OF PRESENT ILLNESS History of Present Illness Mrs. Preeti Corbin is an 79-year-old female with a history of solitary kidney and hypertensive chronic kidney disease who presents with urinary symptoms and hematuria. She has been experiencing urinary symptoms for the past two to three weeks, including a sensation of infection, although tests have not confirmed an infection. She notes hematuria, with spotting occurring in her underwear after urination. Recently, she observed two spots of blood in her underwear and has started using a pad to manage this. She reports no fever, chills, sweats, or abdominal pain, but describes a sensation in the vaginal area. There is no dysuria, but she experiences urgency and variable urine output, sometimes being able to urinate a lot and other times not at all. She is currently on Lasix for leg swelling, which has increased her urinary frequency. She denies nausea, vomiting, or worsening of her chronic back pain. REVIEW OF SYSTEMS Constitutional: Negative for chills, diaphoresis, fatigue and fever. HENT: Negative for sinus pressure and sore throat. Respiratory: Negative for cough, chest tightness and shortness of breath. Cardiovascular: Negative for chest pain. Gastrointestinal: Negative for abdominal pain, constipation, diarrhea, nausea and vomiting. Genitourinary: Positive for frequency, hematuria, urgency and vaginal bleeding. Negative for dysuria. Musculoskeletal: Negative for arthralgias and myalgias. Skin: Negative for rash. Neurological: Negative for dizziness, weakness and headaches. Hematological: Negative for adenopathy. Does not bruise/bleed easily. All other systems reviewed and are negative. Allergies Reviewed in medical record Current Medications Reviewed in Medical Record. PAST HISTORY Medical Medical History[1] Problem List[2] Surgical Surgical History[3] Family Reviewed in Medical Record Social History Social History Tobacco Use Smoking status: Never Passive exposure: Current Smokeless tobacco: Never Substance Use Topics Alcohol use: Not Currently Social History Substance and Sexual Activity Drug Use Never OBJECTIVE Initial Vital Signs / Weights Initial Vitals Temperature 12/31/24 0800 37 ??C Pulse Rate 12/31/24 0800 62 Heart Rate -- Resp -- Blood Pressure 12/31/24 0800 150/75 SpO2 12/31/24 0800 97 % Pain Score 12/31/24 0759 0 - No pain Wt Readings from Last 3 Encounters: 12/19/24 80.7 kg 10/21/24 80 kg 10/07/24 80.4 kg PHYSICAL EXAMINATION Physical Exam CHEST: Lungs clear to auscultation bilaterally. CARDIOVASCULAR: Heart S1 S2, no murmurs, clicks, or rubs. ABDOMEN: Normal bowel sounds. Left-sided abdominal tenderness. GENITOURINARY: Posterior cervix with erosions and minor bleeding. Exam with kj RN as shoe stitcher odd. EXTREMITIES: bilateral lower leg 1+ pitting edema Rest of exam unremarkable. DIAGNOSTICS Labs Labs Reviewed URINALYSIS WITH MICROSCOPIC IF INDICATED, U - Abnormal Result Value Source Urine, Urine, Midstream Clarity Clear Color Yellow Blood Moderate (*) Nitrite Negative Leukocyte Esterase Small (*) Protein Negative Glucose Negative Ketones, QI(U) Negative Bilirubin Negative pH 5.5 Specific [place] <=1.005 Urobilinogen 0.2 MICROSCOPIC MANUAL - Abnormal White Blood Cells 31-40 (*) Red Blood Cells 21-30 (*) Dysmorphic Red Blood Cells <=25 Squamous Cells 4-10 Transitional Cells Occ-3 (*) Renal Cells Occ-3 (*) Bacteria Present (*) BACTERIAL CULTURE, AEROBIC + SUSC, URINE Procedures Pelvic exam per myself. ED COURSE ED Course as of 12/31/24923Dec 31, 2024 0810 I performed my initial evaluation of the patient. We discussed Emergency Department course including testing, treatment, and potential disposition based on findings. 0810 Patient consenting for pelvic exam to see where the blood/spotting is coming from. 0811 Blood(!): Moderate 0812 Leukocyte Esterase(!): Small Waiting on micro 0820 Pelvic performed with Kj CALHOUN. Has erosive cervicitis on exam with a lesion on her cervix with scant bleeding present. 0844 White Blood Cells(!): 31-40 0844 Red Blood Cells(!): 21-30 0844 Transitional Cells(!): Occ-3 0844 Renal Cells(!): Occ-3 0844 Bacteria(!): Present 0851 I discussed the plan for discharge with the patient, and patient/family is agreeable. I discussed with patient the utility, limitations, and findings of the exam/interventions/studies done during this visit as well as the list of differential diagnosis. Patient understands provisional nature of this diagnosis and need for follow up. We discussed the plan of care, including supportive cares. We also discussed symptoms to monitor and symptoms that should prompt them to return for re-evaluation including new or worsening symptoms. All questions and concerns addressed. Patient to be discharged by RN. Final Diagnoses: as of 12/31/24923 Bleeding Vaginal - spotting from cervix Acute Cystitis With Hematuria INTERVENTIONS Medications - No data to display MEDICAL DECISION MAKING Assessment & Plan Hematuria Presents with hematuria, characterized by spotting of blood in her underwear post-urination for twoto three weeks. No fever, chills, or dysuria. Reports a sensation in the vaginal area but no abdominal pain. Pelvic exam revealed posterior cervix with erosions and minor bleeding, suggesting a possible gynecological source. Urinalysis and further imaging may be necessary to determine the source ofbleeding. Differential diagnosis includes but not limited to gynecological bleeding, erosive cervicitis, sexually transmitted infections, uterine cancer, cervical cancer, or others, differential diagnosis of hematuria includes ureteral stone, kidney stone, kidney mass,, urinary tract infection, or others. - Perform urinalysis to check for infection or other abnormalities - Conduct pelvic exam to determine the source of bleeding - Advise to keep appointment with primary care for further evaluation and possible referral to urology/gynecology Solitary kidney with stable mass Solitary kidney due to past kidney cancer. Known mass on the left kidney, well- managed on CT scans,with the last scan on September 26, 2024. 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 Lower extremity edema Reports leg swelling, managed with Lasix. No new symptoms reported. - Continue Lasix as prescribed to manage leg swelling Radicular lumbar back pain Chronic radicular lumbar back pain, not currently exacerbated. No new or worsening back pain reported. Assessment and Plan Workup in the emergency department showed 21-40 whites, I will culture this. On her pelvic exam shedoes have some erosive cervicitis which will need to be followed inpatient should get a referral toOb caterer's aide for this. She might need a colposcopy. Patient has a follow-up appointment tomorrow with [facility]. We will start the patient on cefdinir twice a day for 5 days. Patient was discharged inno acute distress. She is nontoxic and well-appearing.. DIFFERENTIAL DIAGNOSES As above. PROBLEMS ADDRESSED THIS VISIT As above. Care is significantly affected by the following Social Determinants of Health: none. I reviewed the following external records: primary care records, prior outpatient labs, prior outpatient radiology tests and inpatient records. The following tests were considered but ultimately not performed: none. Escalation of care, including admission/observation, considered: none. DIAGNOSIS Final diagnoses: [N93.9] Bleeding Vaginal - spotting from cervix [N30.01] Acute Cystitis With Hematuria DISPOSITION Home or Self Care DISCHARGE/TRANSFER VITAL SIGNS Vitals: 12/31/24 0815 BP: Pulse: 61 Temp: SpO2: 97% ED DISCHARGE MEDS ED Prescriptions Medication Sig Dispense Start Date End Date Auth. Provider cefdinir (Omnicef) 300 mg capsule Take 1 capsule (300 mg total) by mouth 2 (two) times a day beforemorning and evening meals for 5 days. 10 capsule 12/31/2024 01/05/2025 Severino Angela APRN, C.N.P.,D.N.P. FOLLOW UP [facility] tomorrow at 200 pm as scheduled. Severino Angela, TIMMY, ARSLAN, COMMERCIAL STRIPPER-C, AGACNP-BC, ENP-C Emergency Medicine [1] Past Medical History: Diagnosis Date Adverse Reaction Anesthetic Personal History Anemia Arthritis Chronic Kidney Disease NOS Gastroesophageal Reflux Disease NOS Hypertension NOS Malignant Primary Neoplasm (Unknown Site) Unspecified (HCC) Sickness Motion Personal History [2] Patient Active Problem List Diagnosis Anemia Iron Deficiency Blood Loss Chronic Sprain Ankle Deltoid Ligament Initial Right Pain Low Back Acute Diaphragmatic Hernia Without Obstruction Or Gangrene Gastroesophageal Reflux Disease Hypertensive Chronic Kidney Disease With Stage 1 Through Stage 4 Chronic Kidney Disease, Or Unspecified Chronic Kidney Disease PreDiabetes Solitary Kidney Acquired Personal History Of Other Malignant Neoplasm Of Kidney Diverticulitis Radiculopathy Lumbar Chronic Kidney Disease (CKD), Stage 3b Glomerular Filtration Rate (GFR) 30 To 44 (HCC) [3] Past Surgical History: Procedure Laterality Date CHOLECYSTECTOMY WY NEPHREC RMVL LYMPHDEC/THROMB 1989 Severino Angela APRN, C.N.P., D.N.P. 12/31/24 0924 documented in this encounter Plan of Treatment Upcoming Encounters Date Type Department Care Team (Late st Contact Info) Description 01/23/2025 12:30 PM CDT Appointment Department of Radiology, [facility], in [place], [place] [address] [place] [address] Perfecto Clement II, M.D. [address] [phone] 02/26/2025 8:30 AM CDT Appointment Department of Laboratory Medicine in [address] [place] [phone] Traci Tripp M.D., Ph.D. [address] [place] [phone] 02/26/2025 8:40 AM CDT Appointment Department of Laboratory Medicine in [address] [phone] Traci Tripp M.D., Ph.D. [address] [place] [phone] 02/27/2025 10:15 AM CDT Office Visit Department of Nephrology in [address] [phone] America Matamoros APRN, C.N.P., M.S. [address] [place] [phone] documented as of this encounter Procedures Procedure Name Priority Date/Time Associated Diagnosis Comments URINALYSIS WITH MICROSCOPIC IF INDICATED, U Routine 12/31/2024 8:02 AM CDT HC URINALYSIS AUTO W MICRO Routine 12/31/2024 8:02 AM CDT BACTERIAL CULTURE, AEROBIC + SUSC, URINE Routine 12/31/2024 8:02 AM CDT documented in this encounter Results * Bacterial Culture, Aerobic + Susceptibility, Urine (12/31/2024 8:02 AM CDT) Urine Culture Urogenital microbiota, susceptibilities not performed per laboratory criteria. 01/01/2025 10:22 AM CDT ECLR Urine (Urine, Midstream) 12/31/2024 8:02 AM CDT 12/31/2024 2:29 PM CDT Comment:Specimen Source Site : Urine us Severino Angela APRN, C.N.P., D.N.P. LAB MICROBIOLOGY - GENERAL ORDERABLES Final Result [facility] [address] [place] [phone], [facility] ECLR [facility] in [place] [address] [place] [phone] * (ABNORMAL) Microscopic Manual (12/31/2024 8:02 AM CDT) White Blood Cells 31-40(A) /hpf 8:42 AM CDT CNFL Comment: ----REFERENCE VALUE---- Males: 0-3 Females: 0-10 Unknown: 0-10 Red Blood Cells 21-30(A) 0 - 2 /hpf 12/31/2024 8:42 AM CDT [facility]FL Dysmorphic Red Blood Cells <=25 <=25 % 12/31/2024 8:42 AM CDT CNFL Squamous Cells 4-10 /hpf 12/31/2024 8:42 AM CDT [facility] Transitional Cells Occ-3(A) None Seen /hpf 12/31/2024 8:42 AM CDT [facility] Renal Cells Occ-3(A) None Seen /hpf 12/31/2024 8:42 AM CDT CN[facility] Bacteria Present(A ) None Seen 12/31/2024 8:42 AM CDT CNFL Urine 12/31/2024 8:02 AM CDT 12/31/2024 8:05 AM CDT us Severino Angela APRN, Donita.N.P., D.N.P. LAB URINE OR DERABLES Final Result [facility] [address] [place] [phone], [facility] CNFL [facility] in [address] [address] * (ABNORMAL) Urinalysis with Microscopic if Indicated: Urine, Midstream (12/31/2024 8:02 AM CDT) Source Urine, Urine, Midstream 12/31/2024 8:06 AM CDT CNFL Clarity Clear Clear 12/31/2024 8:07 AM CDT CNFL Color Yellow 12/31/2024 8:07 AM CDT [facility]FL Comment: ----REFERENCE VALUE---- Colorless Yellow Eva Blood Moderate(A) Negative 12/31/2024 8:07 AM CDT CNFL Nitrite Negative Negative 12/31/2024 8:07 AM CDT CNFL Leukocyte Esterase Small(A) Negative 12/31/2024 8:07 AM CDT CNFL Protein Negative mg/dL 12/31/2024 8:07 AM CDT CNFL Comment: ----REFERENCE VALUE---- Negative Trace Glucose Negative Negative mg/dL 12/31/2024 8:07 AM CDT CNFL Ketones, QI(U) Negative Negative mg/dL 12/31/2024 8:07 AM CDT CNFL Bilirubin Negative Negative 12/31/2024 8:07 AM CDT CNFL pH 5.5 5.0 - 8.0 12/31/2024 8:07 AM CDT CNFL Specific [place] <=1.005 1.001 - 1.035 12/31/2024 8:07 AM CDT CNFL Urobilinogen 0.2 0.2 - 1.0 mg/dL 12/31/2024 8:07 AM CDT CNFL Urine (Urine, Midstream) 12/31/2024 8:02 AM CDT 12/31/2024 8:05 AM CDT us Severino Angela APRN C.N.P., D.N.P. LAB URINE OR DERABLES Final Result [facility] [address] [place] [phone], [facility] CNFL [facility] in [address] [address] documented in this encounter Visit Diagnoses Diagnosis Bleeding Vaginal- Primary Acute Cystitis With Hematuria documented in this encounter Care Teams Technology Integration Specialist Relationship Specialty Start Date End Date None Reported, Pcp PCP - General 03/22/24 documented as of this encounter
--- OUTSIDE RECORDS SUMMARY | 2025-01-01 14:00 | XMS_ITS | Encounter Summary ---
Author Organization [facility] er Address [address] [place] [address] Care Team Providers Care Team Assistant Name Role Phone Perfecto Clement MD Primary Care Provider [phone] Reason for Referral * Consultation (Routine) - Authorized Specialty Diagnoses / Procedures Referred By Contac t Referred To Contact Diagnoses Post-menopausal bleeding Cervical erosion Perfecto Clement MD [address] [phone] Phone: tel: fax: [address] Phone: tel: fax: Referral ID Status Reason Start Date Expiration Date V isits Requested Visits Authorized [id number] Authorized 01/02/2025 01/02/2026 1 1 * Consultation (Routine) - Authorized Specialty Diagnoses / Procedures Referred By Contac t Referred To Contact Diagnoses Recurrent UTI Perfecto Clement MD [address] [phone] Phone: tel: fax: [address] Phone: tel: fax: Referral ID Status Reason Start Date Expiration Date V isits Requested Visits Authorized [id number] Authorized 01/02/2025 01/02/2026 1 1 Scheduling Instructions Schedule and complete ultrasound (a different order) prior to Medical Science Liaison and Urology appointments * Consultation (Routine) - Authorized Specialty Diagnoses / Procedures Referred By Kimani mcintosh Referred To Contact Diagnoses Post-menopausal bleeding Cervical erosion Perfecto Clement MD [address] [address] Phone: tel: fax: [address] Phone: tel: fax: Referral ID Status Reason Start Date Expiration Date V isits Requested Visits Authorized [id number] Authorized 01/02/2025 01/02/2026 1 1 Scheduling Instructions Schedule and complete ultrasound (a different order) prior to Medical Science Liaison and Urology appointments Reason for Visit * Reason Comments Follow-up Encounter Details Date Type Department Care Team (Late st Contact Info) Description 01/01/2025 2:00 PM CDT Office Visit [address] [address] Perfecto Clement MD [address] [phone] Bilateral lower extremity edema (Primary Dx); Recurrent UTI; Post-menopausal bleeding; Cervical erosion; Chronic renal failure, stage 3b (HCC); Chronic diastolic heart failure (HCC) Social History Tobacco Use Types Packs/Day Years [...] from your doctor or pharmacy? Never 07/04/2024 [facility] Utilities Answer Date Recorded In the past 12 months has [employer] gas, oil, or water company threatened to shut off services in your [...] week 07/04/2024 How often do you attend temple or christian serv ices? Never 07/04/2024 Do you belong to any clubs o r organizations such as temple groups, unions, fraternal or athletic groups, or [...] Date Recorded PHQ-9 Total Score 0 10/08/2024 [facility] [place] of Occupat ional Health - Occupational Stress [...] place to sleep or slept in a retirement (including now)? No 09/20/2023 Housing Stability Vital Sign Answer Sharath e Recorded In the last 12 months, was t here a time when you were not able to pay the mortgage or rent on time? No 07/04/2024 In the past 12 months, how m any times have you moved where you were living? 0 07/04/2024 At any time in the past 12 m [facility], were you homeless or living in a retirement (including now)? No 07/04/2024 Interpersonal Safety Questionnaire [...] Master's degree (e.g., MA, MS, Nicolette, MEd, TIRE REPAIRER, YVAN) 02/02/2021 Comments No Sex and [...] Sign Reading Time Taken Comments Blood Pressure 140/81 01/01/2025 1:53 PM CDT Pulse 72 01/01/2025 1:53 PM CDT Temperature 36.7 C (98.1 F) 01/01/2025 1:53 PM CDT Respiratory Rate 18 01/01/2025 1:53 PM CDT Oxygen Saturation 96% 01/01/2025 1:53 PM CDT Inhaled Oxygen Concentration - - Weight 81.2 kg (179 lb 1.6 oz) 01/01/2025 1:53 P M CDT Height - - Body Mass Index 36.15 11/12/2024 9:57 AM CDT documented in this encounter Patient Instructions * Patient Instructions* Perfecto Clement MD - 01/01/2025 2:00 PM CDT Schedule with [facility] Ultrasound; then see Gynecology and Urology for consultations. Continue Lasix and Potassium supplement. documented in this encounter Progress Notes * Perfecto Clement MD - 01/01/2025 2:00 PM CDT Preeti Corbin is a 79 y.o. female here for the following: Chief Complaint Patient presents with Follow-up History of Present Illness The patient presents for evaluation of hematuria, hypertension, leg swelling, and tingling. She recently visited the ER due to hematuria. A urine test showed no infection but detected white blood cells. She was prescribed antibiotics and reports improvement. There have been no new hematuriaepisodes since the ER visit, except for a small flake this morning. 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 She has a known penicillin allergy that causes hives. Her urinary urgency and frequency have decreased while on antibiotics. A pelvic exam revealed cervical skin changes and lesions. The blood has been spotted on her underwear and has occurred a few times in the past several months. Her blood pressure has improved with carvedilol, although she experiences discomfort initially and dizziness when lying flat. She is currently taking half a pill twice daily. Lasix is not effectively managing her leg swelling. Her weight has increased from 176 to 179 pounds, likely due to fluid retention, and the swelling is causing difficulty with mobility. She is considering increasing the Lasix dosage and taking potassium supplements. Compression stockings were uncomfortable due to swelling above them. The tingling sensation in right hand has improved with bracing right wrist at night. Objective Vitals: 01/01/25 1353 BP: (!) 140/81 BP Location: Right arm Patient Position: Sitting BP Cuff Size: Adult Pulse: 72 Resp: 18 Temp: 36.7 ??C (98.1 ??F) TempSrc: Temporal SpO2: 96% Weight: 81.2 kg (179 lb 1.6 oz) Physical Exam General Appearance: Normal. Throat: Normal. Neck: Normal. Extremities: Bilateral leg edema. Results - Labs: - Urine test: Pyuria (31-40 WBCs) - Diagnostic Testing: - Pelvic exam: Cervical skin changes and bilateral lesions Assessment & Plan Vaginal bleeding (spotting) and recurrent UTI: Pyuria suggests possible infection or inflammation. Improvement noted with cefdinir. Pelvic exam findings (ER note reviewed showed cervical erosions) may explain bleeding. History of uterine fibroids. - Order pelvic ultrasound for further evaluation. - Referrals to gynecology and urology. - Complete cefdinir course and stay hydrated. HTN and CKD III: HTN improving, CKD stable. Mookie LE swelling: Stable to worsening. Suspect multifactorial stasis edema predominantly, with component of CKD and Chronic diastolic heart failure - Continue carvedilol half pill twice daily with food and hydration. - Continue lasix at same dose (follows with Nephrology at [facility]) and potassium - Will try to order velcro wraps to [facility]... Was not able to afford compression stockings or consult lymphedema clinic as insurance would not cover these in the past... (would thinkthat lymphedema evaluation with compression stocking fitting or velcro wraps one time visit would be enough just to get her fitted and compression garments to use)... Right carpal tunnel syndrome: Symptoms resolved - Continue night brace for 1-2 months. Resume if symptoms return. Follow-up: In 3 months. Diagnosis Plan 1. Bilateral lower extremity edema Durable Medical Equipment 2. Recurrent UTI cefdinir (OMNICEF) 300 MG capsule Ambulatory External Referral [facility]; [place]; Urology 3. Post-menopausal bleeding Ambulatory External Referral [facility]; [place]; PACKAGE CAR DRIVER Ambulatory External Referral [facility]; [place]; Radiology 4. Cervical erosion Ambulatory External Referral [facility]; [place]; PACKAGE CAR DRIVER Ambulatory External Referral [facility]; [place]; Radiology 5. Chronic renal failure, stage 3b (HCC) Durable Medical Equipment 6. Chronic diastolic heart failure (HCC) Durable Medical Equipment Patient Active Problem List Diagnosis Essential (primary) hypertension Chronic renal failure, stage 3b (HCC) Prediabetes Gastroesophageal reflux disease H/O right nephrectomy Hiatal hernia Left renal mass Psychosocial stressors History of renal cell carcinoma Hyponatremia Diverticulitis Lumbar radiculopathy Neuropathic pain Malignant neoplasm of left kidney, except renal pelvis (HCC) Chronic pain of multiple sites Swelling of both lower extremities Obesity, morbid (HCC) Hypomagnesemia Chronic diastolic heart failure (HCC) documented in this encounter Plan of Treatment Scheduled Referrals Name Type Priority Associated Diagnoses Order Schedule Ambulatory External Referral [facility]; [place]; PACKAGE CAR DRIVER Outpatient Referral Routine Post-menopausal bleeding Cervical erosion Ordered: 01/02/2025 Ambulatory External Referral [facility]; [place]; Urology Outpatient Referral Routine Recurrent UTI Ordered: 01/02/2025 Ambulatory External Referral [facility]; [place]; Radiology Outpatient Referral Routine Post-menopausal bleeding Cervical erosion Ordered: 01/02/2025 documented as of this encounter Visit Diagnoses Diagnosis Bilateral lower extremity edema- Primary Recurrent UTI Urinary tract infection, site not specified Post-menopausal bleeding Postmenopausal bleeding Cervical erosion Erosion and ectropion of cervix Chronic renal failure, stage 3b (HCC) Chronic diastolic heart failure (HCC) Chronic diastolic heart failure documented in this encounter Care Teams Team Assistant Relationship Specialty Start Date End Date Perfecto Clement MD [address] [place] [address] PCP - General Family Medicine 02/02/21 documented as of this encounter
--- OUTSIDE RECORDS SUMMARY | 2025-01-03 08:00 | XMS_ITS | Encounter Summary ---
Author Organization [facility] Address [address] [place] [address] Care Team Providers Care Lime Puller Name Role Phone None Reported, Pcp Primary Care Provider Unavail able Encounter Details Date Type Department Care Team (Latest Contact Info) Description 01/03/2025 8:00 AM CDT - 01/03/2025 11:59 PM CDT Hospital Encounter Department of Laboratory Medicine in [address] [phone] Traci Tripp M.D., Ph.D. 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 [address] [phone] 02/26/2025 8:30 AM CDT Appointment Department of Laboratory Medicine in [address] [phone] Traci Tripp M.D., Ph.D. [address] [place] [phone] 02/26/2025 8:40 AM CDT Appointment Department of Laboratory Medicine in [address] [phone] Traci Tripp M.D., Ph.D. [address] [place] [phone] 02/27/2025 10:15 AM CDT Office Visit Department of Nephrology in [address] [phone] America Matamoros APRN, C.N.P., M.S. [address] [place] [phone] documented as of this encounter Procedures Procedure Name Priority Date/Time Associated Diagnosis Comments BASIC METABOLIC PANEL, S/P Routine 01/03/2025 8:11 AM CDT Chronic Kidney Disease (CKD), Stage 3b Glomerular Filtration Rate (GFR) 30 To 44 (HCC) documented in this encounter Results * (ABNORMAL) Basic Metabolic [...] Ph.D. LAB BLOOD ADD- ON Final Result [facility] [address] [place] [id number], [facility] in [address] [address] documented in this encounter Visit Diagnoses Diagnosis Chronic Kidney Disease (CKD), Stage 3b Glomerular Filtration Rate (GFR) 30 To 44 (HCC) documented in this encounter Care Teams Lime Puller Relationship Specialty Start Date End Date None Reported, Pcp PCP - General 03/22/24 documented as of this encounter
--- OUTSIDE RECORDS SUMMARY | 2025-01-21 10:00 | XMS_ITS | Encounter Summary ---
Author Organization [facility] Address [address] [place] [address] Care Team Providers Care Saw Setter Name Role Phone None Reported, Pcp Primary Care Provider Unavail able Reason for Visit * Reason Comments Abdominal Pain Loss of appetite GERD * Appointment Request (Routine) - Closed Specialty Diagnoses / Procedures Referred By Contact Referred To Contact Gastroenterology and Hepatology Diagnoses Loss Appetite Abdominal Pain Perfecto Clement II, M.D. [address] [phone] Phone: tel: fax: Referral ID Status Reason Start Date Expiration Date Visits Re quested Visits Authorized [id number] Closed 11/06/2024 02/06/2026 1 1 Encounter Details Date Type Department Care Team (Latest Contact Info) Description 01/21/2025 10:00 AM CDT Comprehensive Visit Department of Gastroenterology in [address] [phone] Jessica Kulkarni APRN, C.N.P., D.N.P., M.S.N. 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 - 01/21/2025 10:00 AM CDT Images from the original note were not included. Discussed increasing fiber in the diet and fiber supplementation with a goal of 25 grams per day taken with at least 8 ounces of liquid. Examples may include Metamucil (psyllium), FiberCon (polycarbophil), Benefiber (wheat dextrin- soluble), Citrucel (methylcellulose), Unifiber (insoluble), Sunfiber, or fiber gummies. For diverticular disease, diarrhea and constipation, you want to get more fiber in your diet such as oats, bran, barley and with products like Benefiber. Fiber pill supplements or a powder mixtures can help some people with problems like diverticular disease, constipation or IBS control their bowel habits by pulling excess water from the colon and forming a gel-substance that binds, softens, and increase the bulk of the stool. We discussed about potential options for abdominal bloating, if needed, which could include FDGard,Mintox Plus, Phazyme, Beano, Gas-X, probiotics, jessica, or aloe vera juice. All of these are over the counter and could be taken every 6 hours as needed. Patient Education Managing Diverticular to prevent Acute Diverticulitis What is diverticular disease? Diverticular disease is a condition that occurs in the colon. Small pockets or pouches form in the colon. These pouches are called diverticula. Diverticula are fairly common as people age, but they don???t always cause problems. Diverticulitis Diverticulitis is when the diverticula get obstructed and infected, leading to swelling (Figure 1). This information talks about how diverticulitis can be managed. If you have questions about your condition or this information, talk with your health care provider. What are symptoms of diverticulitis? Common signs and symptoms of diverticulitis include: Sudden, severe pain in the lower left side of the abdomen. Abdominal pain that lasts for days, changing in intensity. Change in bowel habits. Abdominal tenderness. Fever. Nausea and vomiting. Constipation. Diarrhea. Bloating. Diagnosing diverticulitis Diverticula alone usually don???t cause problems. Diverticulitis is often diagnosed when you have symptoms. Because a variety of problems can cause abdominal pain, your health care provider may have to do some tests to diagnose diverticulitis and rule out other problems. To find the cause of your abdominal pain, you may have the following: Physical exam. Blood tests to check for signs of infection. Imaging exams such as a CT scan to look at the colon. If your health care provider finds that you have diverticulitis, you will be referred to a surgeon or to a logistics clerk, a physician who specializes in the digestive system. Treatment In general, treatment depends on how severe your symptoms are and whether this is your first attackof diverticulitis. If your symptoms are mild, you may be able to manage your symptoms with medical care. If your symptoms are severe or if you have complications, you may need surgery. Hospital stay When you are diagnosed with diverticulitis, you may have to stay in the hospital for a couple of days. Your stay in the hospital is meant to provide: Rest. Special diet to rest your colon. IV antibiotics. While you are in the hospital, you may see a surgeon. Your hospital stay may last 2 to 3 days if you don???t need surgery. Usually, the first time you have diverticulitis, your symptoms can be managed with medical treatment. If you have an abscess, a catheter, a thin, flexible tube, may be placed into your abdomen to drainit. You may leave the hospital with the drain in place. When diverticulitis leads to complications or a perforation, you may need surgery. Medical care If you don???t have complications and don???t need surgery, you can expect to leave the hospital in2 to 3 days. You may leave the hospital taking antibiotics or with a drain in place. You will get a dismissal summary when you leave the hospital. It tells you how to care for yourself at home. This includes whento contact your health care provider and instructions about follow-up care. In general, you see thegastroenterologist about 6 to 8 weeks after you leave the hospital. At that time you may have additional tests. You may feel tenderness for a few weeks. This should not get worse. You may have to follow a low-fiber diet. Before you leave the hospital, ask any questions you have. Surgery Often, people with diverticular disease need surgery at some point. It is best if surgery can be planned and not done as an emergency. The surgery involves removing the diseased part of your colon. Surgery could be open surgery, with one long incision. Another kind of surgery is laparoscopic surgery, done through three or four smallincisions. When should you contact your primary health care provider? Contact your primary health care provider if you have the following: Increasing pain. If you have diverticulitis, you may have tenderness for weeks, but it should not get worse. Fever. Nausea and vomiting. If you feel unwell. When do you need to go to the emergency department? Have someone drive you to the emergency department or call 911 or your local emergency number if you have the following: Your symptoms get worse after office hours. You have sudden, worsening abdominal pain. You feel faint. You have nausea and vomiting after office hours. You pass clots. Do not drive yourself to the emergency department. Ask questions Diverticular disease is a chronic condition. You can learn to manage it. Go to all of your follow-up appointments and follow your plan of care. If you have questions about this information or your health, talk with your health care provider. This material is for your education and information only. This content does not replace medical advice, diagnosis or treatment. New medical research may change this information. If you have questionsabout a medical condition, always talk with your health care provider. ?? 2014 [employer] ([facility]). All rights reserved. [id number] * Attachments The following attachments cannot be sent through Care Everywhere. * Gastroesophageal Reflux Disease (GERD) * About Constipation * Fiber Supplements documented in this encounter Consult Notes * Jessica Kulkarni APRN, C.N.P., Anika, M.S.N. - 01/21/2025 10:00 AM CDT Consultation Indication: Loss of appetite, abdominal pain Referring Provider: Perfecto Clement II, M.D. DATE OF VISIT: 01/21/2025 SUBJECTIVE CHIEF COMPLAINT / REASON FOR VISIT Preeti Corbin is a 79 y.o. female who presents for evaluation of loss of appetite, abdominal pain The patient verbally consented to an audio recording of their visit to assist with the completion of documentation. History of Present Illness Mrs. Preeti Corbin is an 79 year old female who presents with decreased appetite and epigastric pain. She has experienced a decreased appetite that began some time ago. She was already on medication for acid reflux and was subsequently started on Pepcid, which significantly improved her symptoms. Shecurrently takes omeprazole twice daily, in the morning and evening, and famotidine around midday. Her appetite is improving, and she has no nausea, vomiting, dysphagia, or complaints of food impaction. Her symptoms are manageable with Pepcid, with occasional epigastric pain occurring infrequently. Spicy foods are identified as a trigger, and she has been reducing her intake. No nausea, vomiting, dysphagia, or regurgitation. She mentions swelling in her legs, which causes her weight to fluctuate, but feels here appetite isbetter with the Pepcid. Her meals depend on the household's plans, sometimes eating out and sometimes at home. She takes a stool softener, Senna S, once daily, which helps maintain regular bowel movements. She has previously used fiber supplements but is not currently taking them. Denies blood in her stools. She has Zofran at home but has not needed it since starting famotidine. MEDICAL HISTORY Problem List[1] SURGICAL HISTORY Surgical History[2] CURRENT MEDICATIONS Current Outpatient Medications Medication Sig Dispense Refill acetaminophen (TYLENOL) 500 mg capsule Take 2 capsules by mouth 2 (two) times a day as needed for pain. amLODIPine (Norvasc) 5 mg tablet Take 5 mg by mouth daily. carvediloL (Coreg) 25 mg tablet Take 1 tablet (25 mg total) by mouth 2 (two) times a day with meals. 180 tablet 3 carvediloL (Coreg) 25 mg tablet Take 12.5 mg by mouth 2 (two) times a day with meals. Constulose 10 gram/15 mL solution 10 g as needed. famotidine (Pepcid) 10 mg tablet Take 10 mg by mouth daily. furosemide (Lasix) 20 mg tablet Take 1 tablet (20 mg total) by mouth daily. 90 tablet 3 lisinopriL 40 mg tablet Take 1 tablet (40 mg total) by mouth daily. 90 tablet 3 magnesium gluconate (Mag-G) 27 mg of magnesium (500 mg) tablet Take 54 mg of magnesium by mouth 2 (two) times a day. metoprolol succinate (Toprol XL) 50 mg 24 hr tablet Take 50 mg by mouth daily. omeprazole (PriLOSEC OTC) [address] tablet Take 40 mg by mouth. ondansetron (Zofran) 4 mg tablet Take 4 mg by mouth as needed for nausea. oxyCODONE (Roxicodone) 5 mg immediate release tablet Take 5 mg by mouth 2 (two) times a day as needed. sennosides-docusate sodium (Senokot-S) 8.6-50 mg per tablet Take 1 tablet by mouth daily as needed. cholecalciferol (Vitamin D3) 50 mcg (2,000 Unit) tablet Take 50 mcg by mouth daily. (Patient not taking: Reported on 01/21/2025) thiamine (vitamin B-1) 50 mg tablet Take 50 mg by mouth daily. (Patient not taking: Reported on 01/21/2025) No current facility-administered medications for this visit. Patient's current medication list, surgical history, allergy list, social history and family history were reviewed. FAMILY HISTORY Family History[3] REVIEW OF SYSTEMS Constitutional: Positive for loss of appetite and weight gain of more than 10 pounds. Gastrointestinal: Positive for abdominal (belly) pain or cramping and heartburn. OBJECTIVE VITAL SIGNS BP 147/85 Pulse 80 Wt 80.6 kg BMI 36.31 kg/m?? PHYSICAL EXAMINATION Vitals reviewed. HENT Head: Normocephalic. Nose: Nose normal. Mouth/Throat: Mouth: Mucous membranes are moist. Eyes Pupils: Pupils are equal, round, and reactive to light. Cardiovascular Rate and Rhythm: Normal rate. Pulmonary Effort: Pulmonary effort is normal. Abdominal General: There is no distension. Tenderness: There is no abdominal tenderness. There is no guarding. Musculoskeletal General: Normal range of motion. Cervical back: Normal range of motion. Skin General: Skin is warm. Neurological Mental Status: She is alert and oriented to person, place, and time. Psychiatric Behavior: Behavior normal. Thought Content: Thought content normal. DIAGNOSTICS Labs: Lab Results Component Value Date WBC 8.4 12/17/2024 HGB 11.2 (L) 12/17/2024 HCT 33.4 (L) 12/17/2024 MCV 92.0 12/17/2024 PLT 238 12/17/2024 Lab Results Component Value Date NA 139 01/03/2025 KSERUM 3.7 12/02/2024 KPLASMA 4.1 01/03/2025 CL 104 01/03/2025 BICARB 21 (L) 01/03/2025 CREATININE 1.37 (H) 01/03/2025 CREATPOC 1.7 (H) 01/24/2024 EGFRNONBLKAA 46 (L) 06/19/2017 EGFRBLKAA 53 (L) 06/19/2017 BUN 20 01/03/2025 ANIONGAP 14 01/03/2025 GLUCOSE 98 01/03/2025 CALCIUM 9.6 01/03/2025 Lab Results Component Value Date ALT 16 10/07/2024 AST 21 10/07/2024 ALKPHOS 83 10/07/2024 BILITOT 0.6 10/07/2024 Lab Results Component Value Date CRP 13.9 (H) 04/24/2024 Lab Results Component Value Date/Time XRXYIMQV23 448 12/02/2024 0954 Lab Results Component Value Date/Time FERRITIN 20 12/07/2023 0732 Lab Results Component Value Date/Time IRON 63 12/07/2023 0732 TIBC 260 (L) 12/02/2024 0954 LABIRON 32 12/02/2024 0954 Lab Results Component Value Date/Time PT 11.9 03/04/2024 1050 Radiology/Procedures: CT Abdomen/Pelvis - 09/26/24 FINDINGS: Postsurgical changes of right nephrectomy for renal carcinoma with partial resection of right 11th and 12th ribs. Stable left upper pole renal mass measuring 2.1 x 2.6 x 2.3 cm (AP x TV x CC), versus 2.1 x 2.7 x 2.2 cm when measured similarly on 01/24/2024. A few additional benign left renal cortical and sinus cysts. The left renal artery and vein are patent. No hydronephrosis. Normal bladder. No concerning hepatic lesions. Cholecystectomy. Normal appearance of the pancreas, spleen, and adrenal glands. Similar moderate-sized esophageal sliding hiatal hernia. Colonic diverticulosis. Otherwise normal appearance of the stomach, small bowel, and colon. No lymphadenopathy. Stable uterine fibroids. Trace aortic calcifications. Similar multiple pulmonary micronodules. Calcified granuloma right lung base. Scattered degenerative arthritis no aggressive osseous lesions. IMPRESSION: Stable left upper pole renal mass. Endoscopy - plans to work with PCP to schedule at same time as colonoscopy Colonoscopy - plans to get re-ordered Assessment & Plan Gastroesophageal Reflux Disease (GERD) GERD well-managed with omeprazole and famotidine. Occasional epigastric pain with spicy foods. No nausea, vomiting, dysphagia, or regurgitation. Informed consent for Tums or Maalox as needed. - Continue omeprazole twice daily. - Continue famotidine once daily. - Provide lifestyle modification information: avoid spicy foods, eat smaller meals, avoid eating close to bedtime. - Discuss Tums or Maalox as needed for symptom relief. Upper Endoscopy Evaluation Improvement with medication; prefers to delay upper endoscopy and coordinate with PCP at the time of future colonoscopy. - Coordinate upper endoscopy with colonoscopy when ready. - Reassure about procedure and discuss scheduling with primary care provider. Constipation Diverticulosis Bowel habits managed with daily Senna S. No current constipation issues. Previously used stool bulking fiber. Education provided. - Continue Senna S daily. - Offer education on ways to previous future complications, role of fiber, and future assistance with constipation management if needed. Follow-up Colon cancer screening Prefers care coordination with primary care provider. Will reach out if wanting help with scheduling colonoscopy or upper endoscopy or if symptoms change. - Follow up with primary care provider for colonoscopy and potential upper endoscopy scheduling. - Encourage messaging if questions arise or symptoms worsen. It was a pleasure seeing Preeti Corbin today. Patient had multiple thought-provoking questions for me. These were answered to the best of my ability. Shared decision-making was used throughout the visit and the patient is in agreement to proceed the plan as detailed above. AVS is available electronically to the patient on the Patient Portal. Lalita Kulkarni APRN, C.N.P., D.N.P. Gastroenterology and Hepatology [facility]c: Perfecto Clement II, M.D. [1] Patient Active Problem List Diagnosis Anemia Iron [...] Filtration Rate (GFR) 30 To 44 (HCC) [2] Past Surgical History: Procedure Laterality Date CHOLECYSTECTOMY RI NEPHREC RMVL LYMPHDEC/THROMB 1989 [3] No family history on file. documented in this encounter Plan of Treatment Upcoming Encounters Date Type Department Care Team (Late st Contact Info) Description 01/23/2025 12:30 PM CDT Appointment Department of Radiology, [facility], in [place], [place] [address] [place] [phone] Perfecto Clement II, M.D. [address] [phone] 02/26/2025 8:30 AM CDT Appointment Department of Laboratory Medicine in [address] [phone] Traci Tripp M.D., Ph.D. [address] [place] [phone] 02/26/2025 8:40 AM CDT Appointment Department of Laboratory Medicine in [address] [phone] Traci Tripp M.D., Ph.D. [address] [place] [phone] 02/27/2025 10:15 AM CDT Office Visit Department of Nephrology in [address] [phone] America Matamoros APRN, C.N.P., M.S. [address] [place] [phone] documented as of this encounter Visit Diagnoses Diagnosis Gastroesophageal Reflux Disease- Primary Constipation Diverticulosis Follow Up Exam Screening Cancer Colon documented in this encounter Care Teams Saw Setter Relationship Specialty Start Date End Date None Reported, Pcp PCP - General 03/22/24 documented as of this encounter
[2025-01-22] VITALS (16 sets, daily range): BP systolic 145–168; BP diastolic 75–84; PULSE 62–74; RESP 18; TEMP 36.8; O2SAT 95–97; BMI 35.5
--- OUTSIDE RECORDS SUMMARY | 2025-01-22 15:00 | XMS_ITS | Encounter Summary ---
Author Organization [facility] er Address [address] [place] [address] Care Team Providers Care Fitter And Turner Name Role Phone Perfecto Clement MD Primary Care Provider [phone] Reason for Visit * Reason Comments R Knee pain Encounter Details Date Type Department Care Team (Late st Contact Info) Description 01/22/2025 3:00 PM CDT Office Visit [address] [phone] Perfecto Clement MD [address] [place] [phone] Social History Tobacco Use Types Packs/Day Years [...] In the past 12 months has e IGG, gas, oil, or water [email or web address] threatened to shut off services in your [...] week 07/04/2024 How often do you attend restorationist or jew serv ices? Never 07/04/2024 Do you belong to any clubs o r organizations such as restorationist groups, unions, fraternal or athletic groups, or [...] Date Recorded PHQ-9 Total Score 0 10/08/2024 [facility] - Occupational Stress [...] place to sleep or slept in a fci (including now)? No 09/20/2023 Housing Stability Vital [...] were you homeless or living in a fci (including now)? No 07/04/2024 Interpersonal Safety Questionnaire Answer Date Recorded How often does anyone, varghesemarlyn adolph family and friends, physically hurt you? Never [...] Master's degree (e.g., MA, MS, Nicolette, MEd, TOWN PLANNER, YVAN) 02/02/2021 Comments No Sex and Gender [...] Sign Reading Time Taken Comments Blood Pressure 104/68 01/22/2025 2:24 PM CDT Pulse 72 01/22/2025 2:24 PM CDT Temperature 37.5 C (99.5 F) 01/22/2025 2:24 PM CDT Respiratory Rate 16 01/22/2025 2:24 PM CDT Oxygen Saturation 93% 01/22/2025 2:24 PM CDT Inhaled Oxygen Concentration - - Weight 81.2 kg (179 lb) 01/22/2025 2:24 PM CDT Height 149.9 cm (4' 11) 01/22/2025 2:24 PM CDT Body Mass Index 36.15 01/22/2025 2:24 PM CDT documented in this encounter Plan of Treatment Not on file documented as of this encounter Visit Diagnoses Not on filedocumented in this encounter Care Teams Fitter And Turner Relationship Specialty Start Date End Date Perfecto Clement MD [address] [place] [phone] PCP - General Family Medicine 02/02/21 documented as of this encounter
--- NOTE | 2025-01-22 17:22 | CRLHL7_ITS ---
For Patients: As a result of the Century Cures Act, medical imaging exams and procedure reports are released immediately into your electronic medical record. You may view this report before your referring provider. If you have questions, please contact your health care provider. INDICATION: Leg pain and swelling. TECHNIQUE: Ultrasound venous duplex lower right extremity. Compression venous exam was performed using monge-scale, color Doppler, and spectral Doppler analysis. COMPARISON: None. FINDINGS: Deep veins: Sonographic imaging demonstrates the right common femoral, deep femoral, superficial femoral, popliteal, posterior tibial and the contralateral left common femoral veins to be fully compressible with normal color Doppler blood flow. Superficial veins: Greater saphenous vein is fully compressible. No popliteal cyst. IMPRESSION: Normal right lower extremity venous ultrasound, no sign of deep venous thrombosis. Dictated by Azalia Escobar MD @ 01/22/2025 6:33:44 PM (Electronically Signed)
--- OUTSIDE RECORDS SUMMARY | 2025-01-22 17:36 | XMS_ITS | Encounter Summary ---
Author Organization [facility] Address [address] [place] [address] Care Team Providers Care Counter Cutter Name Role Phone None Reported, Pcp Primary Care Provider Unavail able Encounter Details Date Type Department Care Team ([facility] st Contact Info) Description 12/25/2024 Clinical Communication Division of Nephrology and Hypertension in [place], [place] [address] [place] [phone] America Matamoros APRN, C.N.P., M.S. 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 - 12/26/2024 8:04 AM CDT SUBJECTIVE CHIEF COMPLAINT / REASON FOR CALL No chief complaint on file. Information Discussed Per America Matamoros APRN patient should follow up with PCP today as scheduled. Patient reports thatshe will discuss her concerns regarding furosemide with her PCP as she has not started furosemide. Patient reports that her PCP feels that it should only be started if her weight exceeds 180 lb and patient states for that reason she has not started furosemide. Hyponatremia may be related to fluid volume excess. Patient states that her PCP has instructed her to remain well hydrated and patient reports her hydration status has not changed. PLAN Disposition/Recommendation: notified provider and awaiting recommendations Information/Education: patient/caller able to teach back Caller agreeable to plan of care: yes The following references were used: nursing clinical judgement and provider America Matamoros APRN * Telephone Encounter - Khalida Rayo R.N. - 12/25/2024 2:45 PM CDT SUBJECTIVE CHIEF COMPLAINT / REASON FOR CALL No chief complaint on file. Information Discussed I called the patient. I reviewed her lab results and relayed the recommendations of America Matamoros CNP. I relayed that her urine culture did not grow any bacteria. She states that she doesn't void as much, and when she goes she has a sensation that radiates to her waistline. She is unable to describe the sensation. Denies pain or burning. She has noticed a spot of blood in her underwear the other day. She feels that she doesn't always empty her bladder fully, and voids more frequently at night. She feels cold all over but denies a fever. She questions what is causing her hyponatremia and reports drinking 48 ounces of water a day and some milk, juice, or pop. She has an appointment with primary care provider at [facility] [place]. PLAN Disposition/Recommendation: I recommended following up with her provider as planned, or going to the ER if she feels she is retaining urine or is not doing well. Information/Education: patient/caller able to teach back Caller agreeable to plan of care: yes The following references were used: nursing clinical judgement * Telephone Encounter - Khalida Rayo R.N. - 12/25/2024 2:28 PM CDT ----- Message from America Matamoros APRN, C.N.P., M.S. sent at 12/25/2024 2:09 PM CDT ----- I am writing to request your assistance with Dr. Martinez's Beatrice patient. Secure chats with staff members: Patient has called everyday this week and calling again wanting her results and very upset. Is a nurse available to speak with her? 12:26 PM If a nurse could call her back, she is having a very hard time understanding why another doctor hasnot read her results and called her. She has appointment tomorrow with her family doctor and is very upset she has to have these labs done again as she is not feeling well. My recommendations: Please call patient to assess and let her know that I have reviewed labs ordered by Dr. Martinez (after starting furosemide). Renal function is stable and hyponatremia has improved. Recommend continue furosemide. It looks like she sees a kindergarten assistant at outside clinic tomorrow and he may consider increasing the furosemide when he performs his physical assessment. I do not have further recommendations based on these labs. I see that Dr. Martinez has referred her to my CKD clinic and I will follow up with her in February. Thanks for calling her and please let me know via secure chat if you require assistance. documented in this encounter Plan of Treatment Upcoming Encounters Date Type Department Care Team (Late st Contact Info) Description 01/23/2025 12:30 PM CDT Appointment Department of Radiology, [facility], in [place], [place] [address] [place] [phone] Perfecto Clement II, M.D. [address] [place] [phone] 02/26/2025 8:30 AM CDT Appointment Department of Laboratory Medicine in [address] [phone] Traci Tripp M.D., Ph.D. [address] [place] [phone] 02/26/2025 8:40 AM CDT Appointment Department of Laboratory Medicine in [address] [phone] Traci Tripp M.D., Ph.D. [address] [place] [phone] 02/27/2025 10:15 AM CDT Office Visit Department of Nephrology in [address] [phone] America Matamoros APRN, C.N.P., M.S. [address] [place] [phone] documented as of this encounter Visit Diagnoses Not on filedocumented in this encounter Care Teams Counter Cutter Relationship Specialty Start Date End Date None Reported, Pcp PCP - General 03/22/24 documented as of this encounter
--- OUTSIDE RECORDS SUMMARY | 2025-01-22 17:36 | XMS_ITS | Encounter Summary ---
Author Organization [facility] Address [address] [place] [address] Care Team Providers Care Reel Hooker Name Role Phone None Reported, Pcp Primary Care Provider Unavail able Encounter Details Date Type Department Care Team ([facility] st Contact Info) Description 12/23/2024 Clinical Communication Division of Nephrology and Hypertension in [place], [place] [address] [place] [phone] Traci Tripp M.D., Ph.D. 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 Patient states she is growing impatient and would like to know if she has an infection or not. She had labs drawn recently for Dr. Martinez and has yet to hear of the results. She is not feeling well and found a spot of blood in her underwear today. Advised patient to be seen at the ED if symptoms worsen meanwhile and patient verbalized understanding. Ensured patient life insurance underwriter will send a message to the provider and call back as soon as possible with interpretation. Patient agrees. documented in this encounter Plan of Treatment Upcoming Encounters Date Type Department Care Team (Late st Contact Info) Description 01/23/2025 12:30 PM CDT Appointment Department of Radiology, [facility], in [place], [place] [address] [place] [phone] Perfecto Clement II, M.D. [address] [place] [phone] 02/26/2025 8:30 AM CDT Appointment Department of Laboratory Medicine in [address] [phone] Traci Tripp M.D., Ph.D. [address] [place] [phone] 02/26/2025 8:40 AM CDT Appointment Department of Laboratory Medicine in [address] [phone] Traci Tripp M.D., Ph.D. [address] [place] [phone] 02/27/2025 10:15 AM CDT Office Visit Department of Nephrology in [address] [phone] America Matamoros APRN, C.N.P., M.S. [address] [place] [phone] documented as of this encounter Visit Diagnoses Not on filedocumented in this encounter Care Teams Reel Hooker Relationship Specialty Start Date End Date None Reported, Pcp PCP - General 03/22/24 documented as of this encounter
--- OUTSIDE RECORDS SUMMARY | 2025-01-22 17:36 | XMS_ITS | Encounter Summary ---
Author Organization [facility] Address [address] [place] [address] Care Team Providers Care Surveillance Director Name Role Phone None Reported, Pcp Primary Care Provider Unavail able Encounter Details Date Type Department Care Team (Late Contact Info) Description 01/01/2025 Results Follow-Up [facility] [address] [place] [phone] Harriett Hernandez M.S.N., R.N. 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 [address] [facility] [address] [place] [phone] 02/26/2025 8:30 AM CDT Appointment Department of Laboratory Medicine in [address] [phone] Traci Tripp M.D., Ph.D. [address] [place] [phone] 02/26/2025 8:40 AM CDT Appointment Department of Laboratory Medicine in [address] [phone] Traci Tripp M.D., Ph.D. [address] [place] [phone] 02/27/2025 10:15 AM CDT Office Visit Department of Nephrology in [address] [phone] America Matamoros APRN, C.N.P., M.S. [address] [place] [phone] documented as of this encounter Visit Diagnoses Not on filedocumented in this encounter Care Teams Surveillance Director Relationship Specialty Start Date End Date None Reported, Pcp PCP - General 03/22/24 documented as of this encounter
--- OUTSIDE RECORDS SUMMARY | 2025-01-22 17:36 | XMS_ITS | Encounter Summary ---
Author Organization [facility] Address [address] [place] [address] Care Team Providers Care Assistant Professor Of Chemistry Name Role Phone Perfecto Clement MD Primary Care Provider Encounter Details Date Type Department Care Team (Late st Contact Info) Description 03/04/2024 Telephone [facility] Professor Of Biology [address] [place] [phone] Annette Montaño, [facility] [address] [place] [phone] Social History Tobacco Use Types Packs/Day Years Used Date Smoking Tobacco: Never Passive Smoke Exposure: Never Smokeless Tobacco: Never Alcohol Use Standard Drinks/Week Comments Yes 0 (1 standard drink = 0.6 oz pur e alcohol) Rarely Humiliation, Afraid, Rape, and Kick questionnair e Answer Date Recorded Within the last year, have y ou been afraid of your partner or ex-partner? No 09/20/2023 Within the last year, have y ou been humiliated or emotionally abused in other ways by your partner or ex-partner? No Within the last year, have y ou been kicked, hit, slapped, or otherwise physically hurt by your partner or ex-partner? No 09/20/2023 Within the last year, have y ou been raped or forced to have any kind of sexual activity by your partner or ex-partner? No 09/20/2023 Social Connection and Isolat ion Panel [NHANES] Answer Date Recorded In a typical week, how many times do you talk on the phone with family, friends, or neighbors? Once a week 09/20/2023 How often do you get togethe r with friends or relatives? Once a week 09/20/2023 How often do you attend chur ch or shinto services? More than 4 times per year 09/20/2023 Do you belong to any clubs o r organizations such as confucianist groups, unions, fraternal or athletic groups, or school groups? No 09/20/2023 How often do you attend meet ings of the clubs or organizations you belong to? More than 4 times per year 09/20/2023 Are you , , di vorced, , never , or living with a partner? 09/20/2023 AUDIT-C Answer Date Recorded Q1: How often do you have a drink containing alcohol? Never 09/20/2023 Q2: How many drinks containi ng alcohol do you have on a typical day when you are drinking? Patient does not drink Q3: How often do you have si x or more drinks on one occasion? Never 09/20/2023 Overall Financial Resource Strain (CARDIA) Answe r Date Recorded How hard is it for you to pa y for the very basics like food, housing, medical care, and heating? Not hard at all 09/20/2023 PHQ-2 Answer Date Recorded PHQ-9 Total Score 0 02/22/2024 [facility] of Occupat ional Health - Occupational Stress Questionnaire Answer Date Recorded Do you feel stress - tense, restless, nervous, or anxious, or unable to sleep at night because your mind is troubled all the time - these days? Only a little 09/20/2023 Exercise Vital Sign Answer Date Recorde d On average, how many days pe r week do you engage in moderate to strenuous exercise (like a brisk walk)? 1 day 09/20/2023 On average, how many minutes do you engage in exercise at this level? 20 min 09/20/2023 Hunger Vital Sign Answer Date Recorded Within the past 12 months, y ou worried that your food would run out before you got the money to buy more. Never true 09/20/19 24 Within the past 12 months, t he food you bought just didn't last and you didn't have money to get more. Never true 09/20/2023 PRAPARE - Transportation Answer Date Re corded In the past 12 months, has l ack of transportation kept you from medical appointments or from getting medications? No 12/2023 In the past 12 months, has l ack of transportation kept you from meetings, work, or from getting things needed for daily living? No 09/20/2023 Housing Stability Vital Sign Answer [...] place to sleep or slept in a fdc (including now)? No 09/20/2023 Education Answer Date Recorded What is the highest level of school you have completed or the highest degree you have received? Master's degree (e.g., MA, MS, Nicolette, MEd, COAT EXAMINER, YVAN) 02/02/2021 Comments No Sex and Gender [...] on filedocumented in this encounter Care Teams Assistant Professor Of Chemistry Relationship Specialty Start Date End Date Perfecto Clement MD [address] [place] [phone] PCP - General Family Medicine 02/02/21 documented as of this encounter
--- OUTSIDE RECORDS SUMMARY | 2025-01-22 17:36 | XMS_ITS | Encounter Summary ---
Author Organization [facility] er Address [address] [place] [address] Care Team Providers Care Structures Engineer Name Role Phone Perfecto Clement MD Primary Care Provider + [phone] Reason for Visit * Reason Comments Med Refill Encounter Details Date Type Department Care Team (Late st Contact Info) Description 12/05/2024 Refill [place] [address] [phone] Perfecto Clement MD [address] [place] [phone] Essential (primary) hypertension Social History Tobacco Use Types Packs/Day Years [...] from your doctor or pharmacy? Never 07/04/2024 [facility] Utilities Answer Date Recorded In the past 12 months has e [employer] gas, oil, or water [employer] threatened to shut off services in your [...] week 07/04/2024 How often do you attend scientologist or jehovah's witness serv ices? Never 07/04/2024 Do you belong to any clubs o r organizations such as scientologist groups, unions, fraternal or athletic groups, or [...] Date Recorded PHQ-9 Total Score 0 10/08/2024 [facility] of Occupat ional Health - Occupational Stress [...] place to sleep or slept in a half-way (including now)? No 09/20/2023 Housing Stability Vital Sign Answer Sharath e Recorded In the last 12 months, was t here a time when you were not able to pay the mortgage or rent on time? No 07/04/2024 In the past 12 months, how m any times have you moved where you were living? 0 07/04/2024 At any time in the past 12 m [facility], were you homeless or living in a half-way (including now)? No 07/04/2024 Interpersonal Safety Questionnaire Answer Date Recorded How often does anyone, misha farfan family and friends, physically hurt you? Never 07/04/2024 How often does anyone, misha farfan family and friends, insult or talk down to you? Never 07/04/2024 How often does anyone, varghesemarlyn adolph family and friends, threaten you with harm? Never 07/04/2024 How often does anyone, varghesemarlyn adolph family and friends, threaten you with harm? Never 07/04/2024 Education Answer Date Recorded What is the highest level of school you have completed or the highest degree you have received? Master's degree (e.g., MA, MS, Nicolette, MEd, [employer], YVAN) 02/02/2021 Comments No Sex and Gender Information Value Date Recorded Sex Assigned at Not on file Legal Sex Female 9:10 PM CDT Gender Identity Not on file Sexual Orientation Not on file Occupation Industry Job Start Date Job End Date Retired Not on file Not on file Not on file documented as of this encounter Miscellaneous Notes * Telephone Encounter - Mara Bautista RN - 12/09/2024 5:47 PM CDT Upcoming appointment with provider: Visit date not found Last visit in provider department: 12/02/2024 Last Rx: 11/12/2024 30d Requested Prescriptions Pending Prescriptions Disp Refills amLODIPine (NORVASC) 5 MG tablet [Pharmacy Med Name: AMLODIPINE BESYLATE 5MG TABS] 30 tablet 0 Sig: TAKE ONE TABLET BY MOUTH EVERY DAY Labs: Lab Results Component Value Date WBC 6.8 12/02/2024 HGB 11.5 (L) 12/02/2024 HCT 33.8 (L) 12/02/2024 PLT 298 12/02/2024 CHOL 205 (H) 02/11/2022 TRIG 147 02/11/2022 HDL 52 02/11/2022 ALT 19 01/02/2024 AST 29 01/02/2024 NA 128 (L) 12/02/2024 K 3.7 12/02/2024 CL 94 (L) 12/02/2024 CREATININE 1.69 (H) 12/02/2024 BUN 26 (H) 12/02/2024 CO2 24 12/02/2024 TSH 0.16 (L) 10/23/2024 HGBA1C 5.2 04/24/2024 ALBU <6.0 12/02/2024 Vitals: BP Readings from Last 2 Encounters: 12/02/24 (!) 153/84 11/12/24 (!) 157/69 documented in this encounter Plan of Treatment Not on file documented as of this encounter Visit Diagnoses Diagnosis Essential (primary) hypertension Unspecified essential hypertension documented in this encounter Care Teams Structures Engineer Relationship Specialty Start Date End Date Perfecto Clement MD [address] [place] [phone] PCP - General Family Medicine 02/02/21 documented as of this encounter
--- OUTSIDE RECORDS SUMMARY | 2025-01-22 17:36 | XMS_ITS | Clinical Summary ---
Author Organization [facility] Address [address] [place] [address] Care Team Providers Care Physician Chief Of Pathology Name Role Phone None Reported, Pcp Primary Care Provider Unavail able Source Comments Patient records contain information from all sites at [facility]. For routine questions regarding patient records, call [phone] during business hours, M-F 8:00 AM - 5:00 PM Central Time. Record requests for emergency care only can be directed to [phone] at any time.[facility] Allergies Active Allergy Reactions Criticality Noted Date Comments Amlodipine GI intolerance 02/11/2022 Light headed, nausea, tired Ciprofloxacin GI intolerance Medium 10/07/2024 Nausea (presented to ED x 2) Codeine GI intolerance High 05/18/2022 Penicillins Rash,Hives (Reselect Reaction) 04/29/2002 Sulfa (Sulfonamide Antibiotics) Rash 05/19/2017 Sulfamethoxazole-Trimet hoprim Rash 05/27/2022 Medications acetaminophen (TYLENOL) 500 mg capsule Take 2 capsules by mouth 2 (two) times a day as needed for pain. Active omeprazole (PriLOSEC OTC) [address] tablet Take 40 mg by mouth. 4 Active thiamine (vitamin B-1) 50 mg tablet Take 50 mg by mouth daily. Active oxyCODONE (Roxicodone) 5 mg immediate release tablet Take 5 mg by mouth 2 (two) times a day as needed. 5 Active sennosides-docu sate sodium (Senokot-S) 8.6-50 mg per tablet Take 1 tablet by mouth daily as needed. 5 Active magnesium gluconate (Mag-G) 27 mg of magnesium (500 mg) tablet Take 54 mg of magnesium by mouth 2 (two) times a day. 5 Active amLODIPine (Norvasc) 5 mg tablet Take 5 mg by mouth daily. 5 Active cholecalciferol (Vitamin D3) 50 mcg (2,000 Unit) tablet Take 50 mcg by mouth daily. 5 Active famotidine (Pepcid) 10 mg tablet Take 10 mg by mouth daily. 5 Active Constulose 10 gram/15 mL solution 10 g as needed. 5 Active metoprolol succinate (Toprol XL) 50 mg 24 hr tablet Take 50 mg by mouth daily. 5 Active ondansetron (Zofran) 4 mg tablet Take 4 mg by mouth as needed for nausea. 5 Active lisinopriL 40 mg tablet Take 1 tablet (40 mg total) by mouth daily. 90 tablet 3 5 12/20/19 26 Active furosemide (Lasix) 20 mg tablet Take 1 tablet (20 mg total) by mouth daily. 90 tablet 3 5 12/20/19 26 Active carvediloL (Coreg) 25 mg tablet Take 1 tablet (25 mg total) by mouth 2 (two) times a day with meals. 180 tablet 3 5 12/20/19 26 Active carvediloL (Coreg) 25 mg tablet Take 12.5 mg by mouth 2 (two) times a day with meals. 5 Active cefdinir (Omnicef) 300 mg capsuleIndicati ons:Acute Cystitis With Hematuria Take 1 capsule (300 mg total) by mouth 2 (two) times a day before morning and evening meals for 5 days. 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 07/25/2022 Sprain Ankle Deltoid Ligament Initial Right 06/2022 Pain Low Back Acute 07/14/2022 Solitary Kidney Acquired 02/14/2022 Gastroesophageal Reflux Disease 01/28/2022 PreDiabetes 01/28/2022 Anemia Iron Deficiency Blood Loss Chronic 2020 Overview (02/06/2021): Added automatically from request for surgery [id number] Hypertensive Chronic Kidney Disease With Stage 1 Through Stage 4 Chronic Kidney Disease, Or Unspecified Chronic Kidney Disease 05/23/2017 Resolved Problems Problem Noted Date Diagnosed Date Resolved Date Neuralgia And Neuritis Unspecified 10/17/2023 12/07/2023 Overview (12/07/2023): Following right nephrectomy, Right incision low back incision site Hypertensive Chronic Kidney Disease With Stage 1 Through Stage 4 Chronic Kidney Disease, Or Unspecified Chronic Kidney Disease 05/23/2017 09/02/2022 Encounters Date Type Department Care Team Description 01/21/2025 10:00 AM CDT Comprehensive Visit Department of Gastroenterology in [address] [phone] Jessica Kulkarni APRN, C.N.P., D.N.P., M.S.N. Gastroesophageal Reflux Disease (Primary Dx); Constipation; Diverticulosis; Follow Up Exam; Screening Cancer Colon Discharge Disposition: Home or Self Care 01/15/2025 Clinical Communication Department of Radiology in [address] [phone] External, Referring Provider Order Request (Ultrasound) 01/03/2025 8:00 AM CDT - 01/03/2025 11:59 PM CDT Hospital Encounter Department of Laboratory Medicine in [address] [phone] Traci Tripp M.D., Ph.D. Chronic Kidney Disease (CKD), Stage 3b Glomerular Filtration Rate (GFR) 30 To 44 (HCC) Discharge Disposition: Home or Self Care 01/01/2025 Results Follow-Up [facility] [address] [facility] [place] [phone] Harriett Hernandez M.S.N., R.N. Bacterial Culture, Aerobic + Susceptibility, Urine 12/31/2024 7:44 AM CDT - 12/31/2024 8:56 AM CDT Emergency [facility] [address] [place] [phone] Severino Angela APRN, C.N.P., D.N.P. Bleeding Vaginal (Primary Dx); Acute Cystitis With Hematuria Discharge Disposition: Home or Self Care 12/25/2024 Clinical Communication Division of Nephrology and Hypertension in [place], [place] [address] [place] [phone] America Matamoros APRN, C.N.P., M.S. 12/23/2024 Clinical Communication Division of Nephrology and Hypertension in [place], [place] [address] [place] [phone] Traci Tripp M.D., Ph.D. 12/20/2024 Clinical Communication Department of Family Medicine, [facility], in [address] [phone] None Reported, Pcp 12/19/2024 10:48 AM CDT - 12/19/2024 11:59 PM CDT Hospital Encounter Department of Laboratory Medicine in [address] [phone] Traci Tripp M.D., Ph.D. Urinary Tract Infection Site Not Specified Discharge Disposition: Home or Self Care 12/19/2024 10:30 AM CDT Office Visit Department of Nephrology in [address] [phone] Traci Tripp M.D., Ph.D. Chronic Kidney Disease (CKD), Stage 3b Glomerular Filtration Rate (GFR) 30 To 44 (HCC) (Primary Dx); Urinary Tract Infection Site Not Specified Discharge Disposition: Home or Self Care 12/17/2024 9:59 AM CDT - 12/17/2024 11:59 PM CDT Hospital Encounter Department of Laboratory Medicine in [address] [phone] Traci Tripp M.D., Ph.D. Hypertension Essential Primary; Chronic Kidney Disease (CKD), Stage 3b Glomerular Filtration Rate (GFR) 30 To 44 (HCC); Mass Kidney Discharge Disposition: Home or Self Care 12/17/2024 9:59 AM CDT - 12/17/2024 11:59 PM CDT Hospital Encounter Department of Laboratory Medicine in [address] [phone] Traci Tripp M.D., Ph.D. Hypertension Essential Primary; Chronic Kidney Disease (CKD), Stage 3b Glomerular Filtration Rate (GFR) 30 To 44 (HCC); Mass Kidney Discharge Disposition: Home or Self Care from Last 3 Months Immunizations Immunization Administration Dates Next Due Influenza high dose QV(65 ye ars or older) (PF) 02/14/2023,02/28/2022,03/16/2020 SARS-COV-2 (COVID-19) - PFIZ ER (Discontinued)(12 years or older) 02/23/2021,07/07/2020,06/16/2020 influenza trivalent high dose (HD)(PF) ,05/29/2018,05/23/2017 Social History Tobacco Use Types Packs/Day Years Used Date Smoking Tobacco: Never Passive Smoke Exposure: Current Smokeless Tobacco: Never Tobacco Cessation:Counseling Given: Not Answered Alcohol Use Standard Drinks/Week Comments Not Currently 0 (1 standard drink = 0.6 oz pur e alcohol) Comments No Sex and Gender Information Value Date Recorded Sex Assigned at Female 02/08/2021 2:36 PM CDT Legal Sex Female 10:56 PM BUSINESS CONTINUITY CONSULTANT Gender Identity Not on file Sexual Orientation Not on file Last Filed Vital Signs Vital Sign Reading Time Taken Comments Blood Pressure 147/85 01/21/2025 10:07 AM CDT Pulse 80 01/21/2025 10:07 AM CDT Temperature 37 C (98.6 F) 12/31/2024 8:00 AM CDT Respiratory Rate 16 10/21/2024 8:47 PM CDT Oxygen Saturation 97% 12/31/2024 8:15 AM CDT Inhaled Oxygen Concentration - - Weight 80.6 kg (177 lb 11.1 oz) 025 10:04 AM CDT Height 149 cm (4' 10.66) 12/07/2023 7:55 AM CDT Body Mass Index 36.31 12/07/2023 7:55 AM CDT Plan of Treatment Upcoming Encounters Date Type Department Care Team (Late st Contact Info) Description 01/23/2025 12:30 PM CDT Appointment Department of Radiology, [facility], in [place], [place] [address] [place] [phone] Perfecto Clement II, M.D. [address] [place] [phone] 02/26/2025 8:30 AM CDT Appointment Department of Laboratory Medicine in [address] [phone] Traci Tripp M.D., Ph.D. [address] [place] [phone] 02/26/2025 8:40 AM CDT Appointment Department of Laboratory Medicine in [address] [phone] Traci Tripp M.D., Ph.D. [address] [place] [phone] 02/27/2025 10:15 AM CDT Office Visit Department of Nephrology in [address] [phone] America Matamoros APRN, C.N.P., M.S. [address] [place] [phone] Health Maintenance Due Date Last Done Comments DTaP,Tdap,and Td Vaccines (1 - Tdap) 07/20/1962 Pneumococcal vaccine (50+ years) (1 of 1 - PCV) 07/20/1993 Zoster Vaccines (1 of 2) 07/20/1993 RSV vaccine - (32-36 weeks) or 60+ years (1 - 1-dose 75+ series) 07/20/2018 Depression Screening (Annual PHQ-2) 05/15/2024 Fall Risk Screen (Annual) 05/15/2024 COVID-19 Vaccine ( season) 2025 02/29/2024, 02/14/2023, 03/07/2022, Additional history exists Influenza Vaccine (#1) 2025 , 02/14/2023, 02/28/2022, Additional history exists Office Visit for Blood Pressure Check / Re-check 04/22/2025 01/21/2025 Creatinine Level (Kidney Function Test) 01/03/2026 01/03/2025, 12/17/2024, 12/02/2024, Additional history exists Fasting Glucose for Diabetes Screening 01/03/2026 01/03/2025, 12/17/2024, 10/07/2024, Additional history exists Potassium Level 01/03/2026 01/03/2025, 08/0 09/2024, 12/02/2024, Additional history exists Sodium Level 01/03/2026 01/03/2025, 08/0 09/2024, 12/02/2024, Additional history exists IPV Vaccines Aged Out No longer eligi ble based on patient's age to complete this topic Procedures Procedure Name Priority Date/Time Associated Diagnosis Comments BASIC METABOLIC PANEL, S/P Routine 01/03/2025 8:11 AM CDT Chronic Kidney Disease (CKD), Stage 3b Glomerular Filtration Rate (GFR) 30 To 44 (HCC) HC URINALYSIS AUTO W MICRO Routine 12/31/2024 8:02 AM CDT URINALYSIS WITH MICROSCOPIC IF INDICATED, U Routine 12/31/2024 8:02 AM CDT BACTERIAL CULTURE, AEROBIC + SUSC, URINE Routine 12/31/2024 8:02 AM CDT BACTERIAL CULTURE, AEROBIC + SUSC, URINE Routine 12/19/2024 11:09 AM CDT Urinary Tract Infection Site Not Specified URINALYSIS WITH MICROSCOPIC Routine 12/17/2024 10:12 AM CDT Hypertension Essential Primary Chronic Kidney Disease (CKD), Stage 3b Glomerular Filtration Rate (GFR) 30 To 44 (HCC) Mass Kidney ALBUMIN, RANDOM, U Routine 12/17/2024 10 :12 AM CDT Hypertension Essential Primary Chronic Kidney Disease (CKD), Stage 3b Glomerular Filtration Rate (GFR) 30 To 44 (HCC) Mass Kidney PROTEIN/CREATININE RATIO, RANDOM, URINE Routine 12/17/2024 10:12 AM CDT Hypertension Essential Primary Chronic Kidney Disease (CKD), Stage 3b Glomerular Filtration Rate (GFR) 30 To 44 (HCC) Mass Kidney RENAL FUNCTION PANEL, S Routine 12/17/2024 10:08 [...] (GFR) 30 To 44 (HCC) Mass Kidney from Last 3 Months Results * (ABNORMAL) Basic Metabolic Panel (01/03/2025 [...] Ph.D. LAB BLOOD ADD- ON Final Result [facility] [address] [place] [address], [facility] [place] [address] * (ABNORMAL) Urinalysis with Microscopic if Indicated: [...] 8.0 12/31/2024 8:07 AM CDT CNFL Specific [place] <=1.005 1.001 - 1.035 12/31/2024 8:07 AM CDT CNFL Urobilinogen 0.2 0.2 - 1.0 mg/dL 12/31/2024 8:07 AM CDT CNFL Urine (Urine, Midstream) 12/31/2024 8:02 AM CDT 12/31/2024 8:05 AM CDT Severino Angela APRN, C.N.P., D.N.P. LAB URINE OR DERABLES Final Result [facility] [address] [place] [address], [facility] CNFL [facility] [place] [address] * (ABNORMAL) Microscopic Manual (12/31/2024 8:02 AM [...] 8:05 AM CDT us Severino Angela APRN, C.N.P., D.N.P. LAB URINE OR DERABLES Final Result Performing Organization Address [facility] Co de Phone Number [facility] [address] [place] [address], [facility] CNFL [facility] [place] [address] * Bacterial Culture, Aerobic + Susceptibility, Urine (12/31/2024 8:02 AM CDT) Only the most recent of2 resultswithin the time period is included. Urine Culture Urogenital microbiota, susceptibilities not performed per laboratory criteria. 01/01/2025 10:22 AM CDT ECLR Urine (Urine, Midstream) 12/31/2024 8:02 AM CDT 12/31/2024 2:29 PM CDT Comment:Specimen Source Site : Urine us Severino Angela APRN, C.N.P., D.N.P. LAB MICROBIOLOGY - GENERAL ORDERABLES Final Result Performing Organization Address City/[facility]/ZIP Co de Phone Number [facility] [address] [place] [address], [facility] ECLR [facility] in [address] [address] * (ABNORMAL) Albumin, Random, Urine (12/17/2024 10:12 AM CDT) Microalbumin 22.9 mg/L 12/17/2024 1:03 PM CDT RDWG Creatinine 33 mg/dL 12/17/2024 1:03 PM CDT RDWG Albumin/Creatinin e Ratio 69(H) <25 mg/g 12/17/2024 1:03 PM CDT R[facility] Urine (Urine, Midstream) 12/17/2024 10:12 AM CDT 12/17/2024 12:32 PM CDT us Traci Landaverde M.D., Ph.D. LAB URINE ORDE RABLES Final Result Performing Organization Address [facility]/ZIP Co de Phone Number [facility] [address] [place] [address], [facility] RDWG [facility] in [address] [phone] * (ABNORMAL) Protein/Creatinine Ratio, Random, Urine (12/17/2024 [...] Ph.D. LAB URINE ORDE RABLES Final Result Performing Organization Address [facility]/ZIP Co de Phone Number [facility] [address] [place] [address], [facility] RDWG [facility] in [address] [phone] * (ABNORMAL) Urinalysis, with Microscopic: Urine, Midstream [...] 8.0 12/17/2024 10:15 AM CDT CNFL Specific [place] 1.010 1.001 - 1.035 12/17/2024 10:15 AM [...] Ph.D. LAB URINE TIFFANY GOMEZ Final Result [facility] [address] [place] [address], [place] CNFL [facility] in [address] [address] * (ABNORMAL) Renal Function Panel (12/17/2024 10:08 [...] 10:08 AM CDT 12/17/2024 10:09 AM CDT Traci Landaverde M.D., Ph.D. LAB BLOOD ADD- ON Final Result Performing Organization Address City/[facility]/ZIP Co de Phone Number [facility] [address] [place] [address], [facility] CNFL [facility] in [address] [address] * (ABNORMAL) Cystatin C with Estimated GFR (12/17/2024 10:08 AM CDT) eGFR by Cystatin C 22(L) >60 mL/min/BSA [...] 10:08 AM CDT 12/18/2024 12:22 PM CDT us Traci Landaverde M.D., Ph.D. LAB BLOOD ADD- ON Final Result [facility] [address] [place] [address], [place] DTL [facility] [address] [place] [address] * (ABNORMAL) CBC with Differential, Blood (12/17/2024 10:08 AM CDT) Hemoglobin 11.2(L) 11.6 - 15.0 g/dL 12/17/2024 [...] Ph.D. LAB BLOOD ADD- ON Final Result [facility] [address] [place] [address], [facility] CNFL [facility] in [address] [address] from Last 3 Months Insurance [employer] Care Teams Physician Chief Of Pathology Relationship Specialty Start Date End Date None Reported, Pcp PCP - General 03/22/24
--- OUTSIDE RECORDS SUMMARY | 2025-01-22 17:36 | XMS_ITS | Clinical Summary ---
Author Organization [facility] Address [address] [place] [address] Care Team Providers Care Mixer Operator Raw Salt Name Role Phone Pcp, No Primary Care Provider Unavailabl e Allergies Active Allergy Reactions Criticality Noted Date Comments Penicillins Hives Unknown 05/19/2017 Sulfa (Sulfonamide Antibiotics) *Unknown Unknown 09/2017 Medications No known medications Social History Tobacco Use Types Packs/Day Years Used Date Smoking Tobacco: Never Assessed Comments Unknown Sex and Gender Information Value Date Recorded Sex Assigned at Not on file Legal Sex Female 2:40 AM EARLY CHILDHOOD LEAD TEACHER Gender Identity Not on file Sexual Orientation Not on file Last Filed Vital Signs Vital Sign Reading Time Taken Comments Blood Pressure 217/93 05/19/2017 4:00 AM EARLY CHILDHOOD LEAD TEACHER Pulse 76 05/19/2017 4:00 AM EARLY CHILDHOOD LEAD TEACHER Temperature 36.3 C (97.4 F) 05/19/2017 2:59 AM EARLY CHILDHOOD LEAD TEACHER Respiratory Rate 18 05/19/2017 2:59 AM EARLY CHILDHOOD LEAD TEACHER Oxygen Saturation 96% 05/19/2017 2:59 AM EARLY CHILDHOOD LEAD TEACHER Inhaled Oxygen Concentration - - Weight 77.1 kg (170 lb) 05/19/2017 2:59 AM EARLY CHILDHOOD LEAD TEACHER Height 152.4 cm (5') 05/19/2017 2:59 AM EARLY CHILDHOOD LEAD TEACHER Body Mass Index 33.2 05/19/2017 2:59 AM EARLY CHILDHOOD LEAD TEACHER Plan of Treatment Not on file Insurance MEDICARE PART B HB ONLY Care Teams Mixer Operator Raw Salt Relationship Specialty Start Date End Date Pcp, No . PCP - General 05/19/17
--- OUTSIDE RECORDS SUMMARY | 2025-01-22 17:36 | XMS_ITS | Encounter Summary ---
Author Organization [facility] Address [address] [place] [address] Care Team Providers Care Quill Machine Operator Name Role Phone None Reported, Pcp Primary Care Provider Unavail able Encounter Details Date Type Department Care Team (Late Contact Info) Description 12/20/2024 Clinical Communication Department of Family Medicine, [facility], in [address] [phone] None Reported, Pcp Social History Tobacco Use Types Packs/Day Years Used Date Smoking Tobacco: Never Passive Smoke Exposure: Current Smokeless Tobacco: Never Alcohol Use Standard Drinks/Week Comments Not Currently 0 (1 standard drink = 0.6 oz pur e alcohol) Comments No Sex and Gender Information Value Date Recorded Sex Assigned at Female 02/08/2021 2:36 PM CDT 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 [address] [facility] [address] [place] [phone] 02/26/2025 8:30 AM CDT Appointment Department of Laboratory Medicine in [address] [phone] Traci Tripp M.D., Ph.D. [address] [place] [phone] 02/26/2025 8:40 AM CDT Appointment Department of Laboratory Medicine in [address] [phone] Traci Tripp M.D., Ph.D. [address] [place] [phone] 02/27/2025 10:15 AM CDT Office Visit Department of Nephrology in [address] [phone] America Matamoros APRN, C.N.P., M.S. [address] [place] [phone] documented as of this encounter Visit Diagnoses Not on filedocumented in this encounter Care Teams Quill Machine Operator Relationship Specialty Start Date End Date None Reported, Pcp PCP - General 03/22/24 documented as of this encounter
--- OUTSIDE RECORDS SUMMARY | 2025-01-22 17:36 | XMS_ITS | Encounter Summary ---
Author Organization [facility] Address [address] [place] [address] Care Team Providers Care Scalp Specialist Name Role Phone None Reported, Pcp Primary Care Provider Unavail able Reason for Visit * Reason Onset Date Comments Order Request 01/15/2025 Ultrasound Encounter Details Date Type Department Care Team (Late Contact Info) Description 01/15/2025 Clinical Communication Department of Radiology in [address] [phone] External, Referring Provider Order Request (Ultrasound) Social History Tobacco Use Types Packs/Day Years Used Date Smoking Tobacco: Never Passive Smoke Exposure: Current Smokeless Tobacco: Never Alcohol Use Standard Drinks/Week Comments Not Currently 0 (1 standard drink = 0.6 oz pur e alcohol) Comments No Sex and Gender Information Value Date Recorded Sex Assigned at Female 02/08/2021 2:36 PM CDT Legal Sex Female 10:56 PM AQUATICS DIRECTOR Gender Identity Not on file Sexual Orientation Not on file documented as of this encounter Plan of Treatment Upcoming Encounters Date Type Department Care Team (Late Contact Info) Description 01/23/2025 12:30 PM CDT Appointment Department of Radiology, [facility], in [place], [place] [address] [place] [phone] Perfecto Clement II, M.D. [address] [place] [phone] 02/26/2025 8:30 AM CDT Appointment Department of Laboratory Medicine in [address] [phone] Traci Trpip M.D., Ph.D. [address] [place] [phone] 02/26/2025 8:40 AM CDT Appointment Department of Laboratory Medicine in [address] [phone] Traci Tripp M.D., Ph.D. [address] [place] [phone] 02/27/2025 10:15 AM CDT Office Visit Department of Nephrology in [address] [phone] America Matamoros APRN, C.N.P., M.S. [address] [place] [phone] documented as of this encounter Visit Diagnoses Not on filedocumented in this encounter Care Teams Scalp Specialist Relationship Specialty Start Date End Date None Reported, Pcp PCP - General 03/22/24 documented as of this encounter
--- OUTSIDE RECORDS SUMMARY | 2025-01-22 17:36 | XMS_ITS | Encounter Summary ---
Author Organization [facility] er Address [address] [place] [address] Care Team Providers Care Resp Ther Name Role Phone Perfecto Clement MD Primary Care Provider [phone] Reason for Visit * Reason Onset Date Comments Results 12/03/2024 Encounter Details Date Type Department Care Team (Late st Contact Info) Description 12/03/2024 Telephone [facility] [address] [address] Perfecto Clement MD [address] [place] [phone] Results Social History Tobacco Use Types Packs/Day Years [...] from your doctor or pharmacy? Never 07/04/2024 [facility] Utilities Answer Date Recorded In the past 12 months has e [employer] gas, oil, or water [employer] threatened to shut off services in your [...] week 07/04/2024 How often do you attend cheondoism or mandaen serv ices? Never 07/04/2024 Do you belong to any clubs o r organizations such as cheondoism groups, unions, fraternal or athletic groups, or [...] Date Recorded PHQ-9 Total Score 0 10/08/2024 [facility] [place] of Occupat ional Health - Occupational Stress [...] place to sleep or slept in a long term (including now)? No 09/20/2023 Housing Stability Vital Sign Answer Sharath e Recorded In the last 12 months, was t here a time when you were not able to pay the mortgage or rent on time? No 07/04/2024 In the past 12 months, how m any times have you moved where you were living? 0 07/04/2024 At any time in the past 12 m [facility], were you homeless or living in a long term (including now)? No 07/04/2024 Interpersonal Safety Questionnaire [...] Master's degree (e.g., MA, MS, Nicolette, MEd, HEALTHCARE SALES REPRESENTATIVE, YVAN) 02/02/2021 Comments No Sex and Gender [...] on filedocumented in this encounter Care Teams Resp Ther Relationship Specialty Start Date End Date Perfecto Clement MD [address] [place] [phone] PCP - General Family Medicine 02/02/21 documented as of this encounter
--- OUTSIDE RECORDS SUMMARY | 2025-01-22 17:37 | XMS_ITS | Encounter Summary ---
Author Organization [facility] er Address [address] [place] [address] Care Team Providers Care Healthcare Sales Representative Name Role Phone Perfecto Clement MD Primary Care Provider [phone] Encounter Details Date Type Department Care Team (Late st Contact Info) Description 11/06/2024 Results Follow-Up [address] [address] Perfecto Clement MD [address] [place] [phone] Urine culture, Urinalysis with reflex microscopic (lab staff release/collect), Urinalysis-Microscop ic Exam, Additional followed-up results: 4 Social History Tobacco Use Types Packs/Day Years [...] from your doctor or pharmacy? Never 07/04/2024 [facility] Utilities Answer Date Recorded In the past 12 months has e electric, gas, oil, or water company threatened to [...] week 07/04/2024 How often do you attend baptist or confucianism serv ices? Never 07/04/2024 Do you belong to any clubs o r organizations such as baptist groups, unions, fraternal or athletic groups, or [...] Date Recorded PHQ-9 Total Score 0 10/08/2024 [facility] [place] of Occupat ional Health - Occupational Stress [...] place to sleep or slept in a snf (including now)? No 09/20/2023 Housing Stability Vital Sign Answer Sharath e Recorded In the last 12 months, was t here a time when you were not able to pay the mortgage or rent on time? No 07/04/2024 In the past 12 months, how m any times have you moved where you were living? 0 07/04/2024 At any time in the past 12 m [facility], were you homeless or living in a snf (including now)? No 07/04/2024 Interpersonal Safety Questionnaire [...] Master's degree (e.g., MA, MS, Nicolette, MEd, DRILL GRINDER, YVAN) 02/02/2021 Comments No Sex and Gender [...] on filedocumented in this encounter Care Teams Healthcare Sales Representative Relationship Specialty Start Date End Date Perfecto Clement MD [address] [facility] [address] [place] [phone] PCP - General Family Medicine 02/02/21 documented as of this encounter
--- OUTSIDE RECORDS SUMMARY | 2025-01-22 17:37 | XMS_ITS | Clinical Summary ---
Author Organization [facility] er Address [address] [place] [id number] Care Team Providers Care Steward/Stewardess [employer] Name Role Phone Perfecto Clement MD Primary Care Provider Allergies Active Allergy Reactions Criticality Noted Date Comments Ciprofloxacin Medium 10/07/2024 Other Reaction(s): GI intolerance Nausea (presented to ED x 2) Codeine High Penicillin V Hives 04/29/2002 Tolerates Cefdinir fine (2024) Sulfa Antibiotics Rash 05/23/2017 Sulfamethoxazole-Trimethoprim Medications omeprazole (PriLOSEC) [address] capsuleIndicati ons:Hiatal hernia with GERD Take 2 capsules (40 mg total) by mouth 1 (one) time each day Do not crush or chew. 60 capsule 11 07/04/19 25 Active Naloxone HCl 4 MG/0.1ML liquidIndicatio ns:Chronic bilateral low back pain with bilateral sciatica Administer 0.1 sprays (0.4 mg total) into one nostril every 2 (two) minutes if needed for opioid reversal alternate nostrils for repeat doses 1 each 07/04/19 25 Active acetaminophen (TYLENOL) 500 MG tabletIndicatio ns:Chronic bilateral low back pain with bilateral sciatica Take 2 tablets (1,000 mg total) by mouth every 8 (eight) hours if needed for mild pain 180 tablet 3 07/04/19 25 Active cholecalciferol (VITAMIN D-3) 50 MCG (1999) tabletIndicatio ns:Vitamin D deficiency Take 1 tablet (2,000 Units total) by mouth every other day 08/29/19 25 Active senna-docusate sodium (SENOKOT-S) 8.6-50 MG tabletIndicatio ns:Drug-induced constipation Take 1 tablet by mouth 2 (two) times a day 180 tablet 1 10/22/19 25 Active furosemide (Lasix) 20 MG tabletIndicatio ns:Swelling of both lower extremities Take 1 tablet (20 mg total) by mouth 1 (one) time each day if needed (increased leg swelling) Inform clinic and monitor your weight before and during treatment. 30 tablet 12/04/19 25 Active potassium chloride (KLOR-CON M10) 10 MEQ CR tabletIndicatio ns:Hypomagnesem ia Take 1 tablet (10 mEq total) by mouth 1 (one) time each day Do not crush or chew. Take once daily only if you take Lasix. 30 tablet 12/04/19 25 Active magnesium gluconate (MAGONATE) 500 MG tabletIndicatio ns:Hypomagnesem ia Take 2 tablets (1,000 mg total) by mouth 2 (two) times a day 120 tablet 2 12/04/19 25 Active amLODIPine (NORVASC) 5 MG tabletIndicatio ns:Essential (primary) hypertension TAKE ONE TABLET BY MOUTH EVERY DAY 90 tablet 1 12/11/19 25 Active lactulose (Constulose) 10 GM/15ML solution 15 mL (10 g total) once daily as needed 10/22/19 25 Active ondansetron (ZOFRAN) 4 MG tablet Take 1 tablet (4 mg total) by mouth once daily as needed 10/16/19 25 Active lisinopril (ZESTRIL) 40 MG tablet Take 1 tablet (40 mg total) by mouth daily 12/20/19 25 026 Active famotidine (PEPCID) 10 MG tabletIndicatio ns:Gastroesopha geal reflux disease, unspecified whether esophagitis present,Chronic renal failure, stage 3b (HCC) Take 1 tablet (10 mg total) by mouth 1 (one) time each day 30 tablet 11 12/27/19 25 Active oxyCODONE (Roxicodone) 5 MG immediate release tabletIndicatio ns:Chronic bilateral low back pain with bilateral sciatica Take 1 tablet (5 mg total) by mouth 1 (one) time each day if needed for moderate pain 28 tablet 01/03/20 25 Active carvedilol (COREG) 25 MG tablet Take 0.5 tablets (12.5 mg total) by mouth 2 (two) times a day with meals 12/27/19 Active lisinopril-hydr oCHLOROthiazide (ZESTORETIC) 20-25 MG per tabletIndicatio ns:Hypertension Take 1 tablet by mouth 2 (two) times a day 180 tablet 3 07/04/19 25 025 Discontinued metoprolol succinate XL (TOPROL-XL) 50 MG 24 hr tabletIndicatio ns:Essential (primary) hypertension,Na usea Take 1 tablet (50 mg total) by mouth 1 (one) time each day 10/09/19 25 025 Discontinued famotidine (PEPCID) 10 MG tabletIndicatio ns:Gastroesopha geal reflux disease, unspecified whether esophagitis present,Chronic renal failure, stage 3b (HCC) Take 1 tablet (10 mg total) by mouth 1 (one) time each day 30 tablet 11 11/06/19 25 025 Discontinued(R eorder) oxyCODONE (Roxicodone) 5 MG immediate release tabletIndicatio ns:Chronic bilateral low back pain with bilateral sciatica Take 1 tablet (5 mg total) by mouth 1 (one) time each day if needed for moderate pain 28 tablet 12/04/19 25 025 Discontinued(R eorder) carvedilol (COREG) 25 MG tablet Take 1 tablet (25 mg total) by mouth 2 times daily 12/20/19 25 025 Discontinued cefdinir (OMNICEF) 300 MG capsuleIndicati ons:Recurrent UTI Take 1 capsule (300 mg total) by mouth 2 times daily 01/01/20 25 025 Active Problems Problem Noted Date Diagnosed Date Chronic diastolic heart failure 12/26/2024 Hypomagnesemia 12/03/2024 Obesity, morbid 11/05/2024 Chronic pain of multiple sites 10/01/2024 Swelling of both lower extremities 10/01/2024 Malignant neoplasm of left kidney, except renal pelvis 05/22/2024 Lumbar radiculopathy 10/17/2023 Overview (10/17/2023): Left lower leg Neuropathic pain 10/17/2023 Overview (10/17/2023): Following right nephrectomy, Right incision low back incision site Diverticulitis 05/28/2023 Assessment & Plan (07/04/2024 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 Plans to address this sometime in the future after first dealing with pain management and renal problems. Hyponatremia 05/25/2023 History of renal cell carcinoma 02/21/2023 Left renal mass 09/13/2022 Assessment & Plan (07/04/2024 2:35 PM CLAY STAIN MIXER): Patient has concerns on risks of ablation and her solitary kidney status. She will follow up with [facility] for imaging surveillance in September 2024. Psychosocial stressors 09/13/2022 Hiatal hernia 07/25/2022 H/O right nephrectomy 02/14/2022 Prediabetes 01/28/2022 Gastroesophageal reflux disease 01/28/2022 Essential (primary) hypertension 05/23/2017 Assessment & Plan (07/04/2024 2:35 PM CLAY STAIN MIXER): Her blood pressure readings have shown improvement compared to previous measurements taken a few weeks ago during her visit to the pain specialist. Her systolic blood pressure remains slightly elevated, necessitating further reduction. Her heart rate is within the desired range. The dosage of metoprolol will be reduced from 50 mg to 25 mg. A new prescription for diltiazem 60 mg, to be taken twice daily, will be issued. She has been advised to discontinue the new medication if she experiences significant lightheadedness upon sitting up or standing, or if her pulse rate drops below 50. She will continue her current regimen of lisinopril and hydrochlorothiazide. A nurse visit will be scheduled in 2 to 3 weeks for a blood pressure check. Chronic renal failure, stage 3b 05/23/2017 Assessment & Plan (07/04/2024 2:35 PM CLAY STAIN MIXER): Stable. Focusing on optimizing BP. Solitary kidney due to history of right renal nephrectomy for RCC. Renal condition will be reassessed at Nephrology follow up visit in July 2024 and at follow up with myself in 3 months. Assessment & Plan (07/04/2024 2:30 PM CLAY STAIN MIXER): Stable. Solitary kidney due to history of right renal nephrectomy for RCC. Renal condition will be reassessed at Nephrology follow up visit in July 2024 and at follow up with myself in 3 months. Resolved Problems Problem Noted Date Diagnosed Date Resolved Date Carpal tunnel syndrome of right wrist 12/03/2024 01/02/2025 Lesion of skin of nose 12/02/202401/02 Sprain of deltoid ligament of ankle 07/14/2022 08/23/2022 Low TSH level 01/28/2022 05/09/2023 Serum calcium elevated 01/28/202201/02 Lung nodules 02/15/2021 03/21/2022 Overview (03/21/2022): Repeat CT lung in March 2022 at [facility] reviewed and all unchanged. Sent to scan into Media tab. No need for further follow up scans. Anemia due to chronic blood loss 02/06/2021 01/02/2025 Overview (02/15/2021): Added automatically from request for surgery [id number] Iron deficiency anemia 06/20/201701/02 Hay fever 04/29/2002 01/02/2025 Encounters Date Type Department Care Team Description 01/22/2025 3:00 PM CDT Office Visit [facility] [address] [place] [id number] Perfecto Clement MD 01/02/[address] [facility] [place] [id number] Perfecto Clement MD [facility] Referrals; DME - [employer] 01/01/2025 2:00 PM CDT Office Visit [facility] [place] [address] Perfecto Clement MD Bilateral lower extremity edema (Primary Dx); Recurrent UTI; Post-menopausal bleeding; Cervical erosion; Chronic renal failure, stage 3b (HCC); Chronic diastolic heart failure (HCC) 12/28/2024 Orders Only [facility] [address] [place] [address] Perfecto Clement MD High urine leukocyte count (Primary Dx) 12/26/2024 10:45 AM CDT Lab [facility] [address] [place] [address] [place] [address] Urinary frequency 12/26/2024 10:00 AM CDT Office Visit [facility] [address] [place] [address] [place] [address] Perfecto Clement MD Urinary frequency (Primary Dx); Essential (primary) hypertension; Gastroesophageal reflux disease, unspecified whether esophagitis present; Chronic renal failure, stage 3b (HCC); Chronic bilateral low back pain with bilateral sciatica 12/26/2024 8:40 AM CDT Office Visit [facility] [address] [place] [address] [place] [address] Paul Osorio MD Chronic diastolic heart failure (HCC) (Primary Dx); Essential (primary) hypertension; Chronic renal failure, stage 3b (HCC); H/O right nephrectomy; Prediabetes; Neuropathic pain 12/05/2024 [address]ill [facility] [address] [place] [address] [place] [address] Perfecto Clement MD Essential (primary) hypertension 12/04/2024 7:17 AM CDT - 12/04/2024 11:59 PM CDT Hospital Encounter [facility] [address] [place] [address] Discharge Disposition: Home or Self Care 12/03/2024 Results Follow-Up [facility] [address] [place] [address] [place] [address] Perfecto Clement MD Magnesium, Ferritin, Iron and TIBC, Additional followed-up results: 7 12/03/2024 Telephone [facility] [address] [place] [address] [place] [address] Perfecto Clement MD Results 12/02/2024 10:15 AM CDT Lab [facility] [address] [place] [address] [place] [address] Hypomagnesemia; Chronic pain of both lower extremities; Leg swelling; Chronic renal failure, stage 3b (HCC); Vitamin D deficiency 12/02/2024 9:00 AM CDT Office Visit [facility] [address] Perfecto Clement MD Leg swelling (Primary Dx); Chronic renal failure, stage 3b (HCC); Chronic pain of both lower extremities; Hypomagnesemia; Chronic pain of multiple sites; Nausea without vomiting; Lesion of skin of nose; Carpal tunnel syndrome of right wrist; Swelling of both lower extremities; Muscle cramps at night; Chronic bilateral low back pain with bilateral sciatica 11/28/[address] [address] Perfecto Clement MD 11/25/[address] [address] Perfecto Clement MD medication question 11/13/2024 8:54 AM CDT - 11/13/2024 11:59 PM CDT Hospital Encounter [facility] [address] [place] [phone] Discharge Disposition: Home or Self Care 11/13/2024 Results Follow-Up [facility] [address] Perfecto Clement MD Magnesium 11/12/2024 11:00 AM CDT Lab [facility] [address] Hypomagnesemia 11/12/2024 10:20 AM CDT Office Visit [address] [address] Perfecto Clement MD Chronic bilateral low back pain with bilateral sciatica (Primary Dx); Fibromyalgia; Swelling of both lower extremities; Essential (primary) hypertension; Chronic renal failure, stage 3b ([facility]); Hypomagnesemia 11/07/2024 1:00 PM CDT Lab [place] [address] [place] [address] 11/07/2024 10:40 AM CDT Office Visit [facility] [address] Perfecto Clement MD Fibromyalgia (Primary Dx); Chronic renal failure, stage 3b (HCC); Swelling of both lower extremities; Dyspnea on exertion; Essential (primary) hypertension; Obesity, morbid (HCC); Anemia due to chronic blood loss; Hypomagnesemia 11/07/2024 10:00 AM CDT Consult [address] [address] Paul Osorio MD Swelling of both lower extremities (Primary Dx); Dyspnea on exertion; Essential (primary) hypertension; Obesity, morbid (HCC); Anemia due to chronic blood loss 11/06/2024 Nurse Triage [address] [address] Perfecto Clement MD 11/06/2024 Results Follow-Up [address] [address] Perfecto Clement MD Urine culture, Urinalysis with reflex microscopic (lab staff release/collect), Urinalysis-Microscopi c Exam, Additional followed-up results: 4 11/05/2024 11:00 AM CDT Lab [address] [address] Chills; Pelvic pain; Stomach pain; Hypomagnesemia; Chronic renal failure, stage 3b (HCC) 11/05/2024 10:20 AM CDT Office Visit [address] [address] Perfecto Clement MD Chills (Primary Dx); Pain in pelvis; Pelvic pain; Stomach pain; Gastroesophageal reflux disease, unspecified whether esophagitis present; Chronic renal failure, stage 3b (HCC); Obesity, morbid (HCC); Swelling of lower extremity; Cystitis; Euthyroid sick syndrome; Hypomagnesemia 10/29/2024 9:20 AM CDT Telemedicine [address] [address] Perfecto Clement MD Appetite loss (Primary Dx); Chronic intermittent abdominal pain 10/29/[address] [address] Perfecto Clement MD 10/24/2024 Telephone [facility] [address] [address] Perfecto Clement MD Nausea 10/24/2024 Telephone [facility] [address] [address] Perfecto Clement MD 10/23/2024 11:45 AM CDT Lab [address] [address] Sensation of feeling cold 10/23/2024 11:00 AM CDT Office Visit [address] [address] Perfecto Clement MD Drug-induced constipation (Primary Dx); Nausea; Chronic bilateral low back pain with bilateral sciatica; Essential (primary) hypertension; Sensation of feeling cold; Low TSH level from Last 3 Months Immunizations Immunization Administration Dates Next Due COVID-19, mRNA, LNP-S, PF, 30mcg/0.3mL dose Pfizer 08/12/2021,07/07/2020,06/16/2020 COVID-19, mRNA, LNP-S, bival ent booster 12 yr and older, PF, 30mcg/0.3mL dose (pfizer) 03/07/2022 COVID-19, mRNA, LNP-s, PF, aly-succrose, 30mcg/0.3mL, COMIRNATY Ages 12+ 02/29/2024,02/14/2023 Flu Vaccine High Dose 65yrs and Older IM 02/14/2023,02/28/2022,03/16/2020,2019,05/29/2018,05/23/2017 Influenza, High-Dose, Trival ent, PF, 65 yrs and Older 02/29/2024,05/20/2019,05/29/2018,2017 Influenza, Unspecified 05/20/2019,05/29/2018 Family History Medical History Relation Comments Heart attack Brother No Known Problems Child 1 No Known Problems Child 2 Heart disease Daughter Throat cancer Daughter COPD Father Heart disease Father Diabetes Mother Heart disease Mother Colon cancer Sister 1 Diabetes Sister 1 Diabetes Sister 2 Relation Status Comments Brother Child 1 Child 2 Daughter Alive Father Mother Sister 1 Alive Sister 2 Alive Social History Tobacco Use Types Packs/Day Years [...] from your doctor or pharmacy? Never 07/04/2024 [facility] Utilities Answer Date Recorded In the past 12 months has e [facility], gas, oil, or water [employer] threatened to shut off services in your [...] week 07/04/2024 How often do you attend roman catholic or synagogue serv ices? Never 07/04/2024 Do you belong to any clubs o r organizations such as roman catholic groups, unions, fraternal or athletic groups, or [...] Date Recorded PHQ-9 Total Score 0 10/08/2024 [facility] - Occupational Stress [...] money to buy more. Never true 07/04/19 Within the past 12 months, t he [...] any time in the past 12 m [facility], were you homeless or living in a [...] Master's degree (e.g., MA, MS, Nicolette, MEd, FACULTY RESEARCH ASSISTANT, YVAN) 02/02/2021 Comments No Sex and Gender Information Value Date Recorded Sex Assigned at Not on file Legal Sex Female 9:10 PM CDT Gender Identity Not on file Sexual Orientation Not on file Occupation Industry Job Start Date Job End Date Retired Not on file Not on file Not on file Last Filed Vital Signs [...] Mass Index 36.15 01/22/2025 2:24 PM CDT Plan of Treatment Health Maintenance Due Date Last Done Comments DTaP,Tdap,and Td Vaccines (1 - Tdap) 07/20/1962 Pneumococcal Vaccine: 50+ Years (1 of 2 - PCV) 07/20/1962 Zoster Vaccines (1 of 2) 07/20/1993 COVID-19 Vaccine (8 - 2023- season) 2025 02/29/2024, 02/14/2023, 03/07/2022, Additional history exists Influenza Vaccine (#1) 2025 , 02/14/2023, 02/28/2022, Additional history exists Bone Density Scan 02/12/2025 Postponed from 1943 (Patient Preference) Mammogram 02/12/2025 Postponed from 1943 (Patient Preference) Medicare Annual Wellness Visit (AWV) 07/04/2025 07/04/2024 Fall Risk Performed 08/28/2025 08/28/2024, 8 HPV Vaccines Aged Out No longer eligi ble based on patient's age to complete this topic Procedures Procedure Name Priority Date/Time Associated Diagnosis Comments ADD-ON TEST REQUEST Routine 12/28/2024 8 :37 AM CDT High urine leukocyte count URINALYSIS-MICROSCOPIC EXAM (REFLEXED) Routine 12/26/2024 10:11 AM CDT Urinary frequency URINALYSIS WITH REFLEX MICROSCOPIC Routine 12/26/2024 10:11 AM CDT Urinary frequency ECHOCARDIOGRAM 2D COMPLETE WITH SPEC AND COLOR FORM DOPPLER WITHOUT CONTRAST Routine 12/04/2024 7:59 AM CDT Swelling of both lower extremities Dyspnea on exertion Essential (primary) hypertension Obesity, morbid (HCC) Anemia due to chronic blood loss ADD-ON TEST REQUEST Routine 12/03/2024 1 2:25 PM CDT Hypomagnesemia ESTIMATED GLOMERULAR FILTRATION RATE (EGFR) Routine 12/02/2024 9:54 AM CDT Leg swelling Chronic renal failure, stage 3b (HCC) PHOSPHORUS Routine 12/02/2024 9:54 AM CDT VITAMIN D, TOTAL Routine 12/02/2024 9:54 AM CDT Vitamin D deficiency BASIC METABOLIC PANEL Routine 12/02/2024 9:54 AM CDT Leg swelling Chronic renal failure, stage 3b (HCC) CBC Routine 12/02/2024 9:54 AM CDT Chronic pain of both lower extremities IRON AND TIBC Routine 12/02/2024 9:54 AM CDT Chronic pain of both lower extremities FERRITIN Routine 12/02/2024 9:54 AM CDT Chronic pain of both lower extremities PERNICIOUS ANEMIA CASCADE Routine 12/02/2024 9:54 AM CDT Chronic pain of both lower extremities MAGNESIUM Routine 12/02/2024 9:54 AM CDT Hypomagnesemia MICROALBUMIN/CREATININ E RATIO Routine 12/02/2024 9:44 AM CDT Chronic renal failure, stage 3b (HCC) XR CHEST 2 VIEWS Routine 11/13/2024 9:03 AM CDT Swelling of both lower extremities Dyspnea on exertion Essential (primary) hypertension Obesity, morbid (HCC) Anemia due to chronic blood loss MAGNESIUM Routine 11/12/2024 10:42 AM CDT Hypomagnesemia ESTIMATED GLOMERULAR FILTRATION RATE (EGFR) Routine 11/07/2024 11:16 AM CDT Chronic renal failure, stage 3b (HCC) NT-PROBNP Routine 11/07/2024 11:16 AM CDT Swelling of both lower extremities Dyspnea on exertion Essential (primary) hypertension Obesity, morbid (HCC) Anemia due to chronic blood loss BASIC METABOLIC PANEL Routine 11/07/2024 11:16 AM CDT Chronic renal failure, stage 3b (HCC) ESTIMATED GLOMERULAR FILTRATION RATE (EGFR) Routine 11/05/2024 11:01 AM CDT Chronic renal failure, stage 3b (HCC) RENAL FUNCTION PANEL Routine 11/05/2024 11:01 AM CDT Chronic renal failure, stage 3b (HCC) MAGNESIUM Routine 11/05/2024 11:01 AM CDT Hypomagnesemia CBC BRANCH OFFICE W/DIFF Routine 11/05/2024 11:01 AM CDT Chills URINALYSIS-MICROSCOPIC EXAM (REFLEXED) Routine 11/05/2024 10:15 AM CDT Chills Pelvic pain Stomach pain URINALYSIS WITH REFLEX MICROSCOPIC Routine 11/05/2024 10:15 AM CDT Chills Pelvic pain Stomach pain URINE CULTURE Routine 11/05/2024 10:15 AM CDT Cystitis ADD-ON TEST REQUEST Routine 10/25/2024 1 0:54 AM CDT Low TSH level T4, FREE Routine 10/23/2024 11:19 AM CDT TSH Routine 10/23/2024 11:19 AM CDT Sensation of feeling cold from Last 3 Months Results * Add-On Test Request (12/28/2024 8:37 AM CDT) Only the most recent of3 resultswithin the time period is included. Add-on Testing SEE BELOW 12/28/2024 11:19 PM CDT [facility] Comment: Unable to add on urine culture 12/28/2024 8:37 AM CDT 12/28/2024 8:37 AM CDT us Perfecto Clement MD LAB BLOOD ORDERABLES Final R esult [facility] [address] [place] [address] * (ABNORMAL) Urinalysis-Microscopic Exam (12/26/2024 10:11 AM CDT) Only the most recent of2 resultswithin the time period is included. Casts, urine NONE SEEN 0-2 Hyaline /lpf 12/27/2024 1:38 PM CDT [facility] Significant casts, urine NONE SEEN None Seen /lpf 12/27/2024 1:38 PM CDT [facility] RBC, Urine 0-3 0 - 3 /hpf 12/27/2024 1:38 PM T [facility] WBC, Urine >100(A) /hpf 12/27/2024 1:38 PM T [facility] Comment: Male: 0-3/hpf Female: 0-10/hpf Squamous Epithelial, Urine FEW Few /lpf 12/27/2024 1:38 PM T [facility] Trans Epithelial, Urine NONE SEEN 0 - 3 /hpf 12/27/2024 1:38 PM T [facility] Renal Tubular Cells, Urine NONE SEEN 0 - 1 /hpf 12/27/2024 1:38 PM T [facility] Bacteria, Urine 1+(A) None Seen - Few /hpf 12/27/2024 1:38 PM T [facility] Urine Crystals NONE SEEN None Seen 12/27/2024 1:38 PM T [facility] 12/26/2024 10:1 1 AM CDT 12/27/2024 12:48 PM CDT Perfecto Clement MD LAB URINE ORDERABLES Final R esult [facility] [address] [place] [address] * (ABNORMAL) Urinalysis with reflex microscopic (12/26/2024 10:11 AM CDT) Only the most recent of2 resultswithin the time period is included. Type CLEAN CATCH 12/26/2024 10:13 AM CDT [facility] [place] [employer] Color, Urine YELLOW YELLOW 12/26/2024 10:13 AM CDT [facility] [place] Clarity, Urine CLEAR CLEAR 12/26/2024 10:13 AM CDT [facility] [place] Glucose, Urine NEGATIVE NEGATIVE mg/dL 12/26/2024 10:13 AM CDT [facility] [place] Bilirubin, Urine NEGATIVE NEGATIVE 12/26/2024 10:13 AM CDT [facility] [place] Ketones, Urine NEGATIVE NEGATIVE mg/dL 12/26/2024 10:13 AM CDT [facility] [place] Specific Seibert, Urine 1.015 1.000 ->=1.030 12/26/2024 10:13 AM CDT [facility] [place] Blood, Urine TRACE(A) NEGATIVE 12/26/2024 10:13 AM CDT [facility] [place] pH, Urine 5.5 5.0 - 7.0 12/26/2024 10:13 AM CDT [facility] [place] Protein, Urine NEGATIVE NEGATIVE-TRA CE mg/dL 12/26/2024 10:13 AM CDT [facility] [place] Urobilinogen, Urine 0.2 0.2 - 1.0 E.U./dL 12/26/2024 10:13 AM CDT [facility] [place] Nitrite, Urine NEGATIVE NEGATIVE 12/26/2024 10:13 AM CDT [facility] Leukocytes, Urine MODERATE(A) NEGATIVE 12/26/2024 10:13 AM CDT [facility] [place] Urine (Urine, Clean Catch) 12/26/2024 10:11 AM CDT 12/26/2024 10:11 AM CDT us Perfecto Clement MD LAB URINE ORDERABLES Final R esult [facility] [place] [address] [place] [address] * Echocardiogram 2D Complete With Spec and Color Form Doppler Without Contrast (12/04/2024 7:59 AM CDT) Anatomical Region Laterality Modality Heart Ultrasound 12/04/2024 7:42 AM CDT us Paul Osorio MD CV ECHO PROCEDURES Fin al Result * (ABNORMAL) Estimated Glomerular Filtration Rate (eGFR) (12/02/2024 9:54 AM CDT) Only the most recent of3 resultswithin the time period is included. [facility] [address] Estimated Glomerular Filtration Rate (eGFR) 30(A) 12/02/2024 1:27 PM CDT [facility] Comment: GFR calculated from serum creatinine value Chronic Kidney Disease less than 60 mL/min/1.73 m2 Kidney Failure less than 15 mL/min/1.73 m2 Note: effective 05/11/2022: 2020 CKD-EPI Equation used 12/02/2024 9:54 AM CDT 12/02/2024 9:54 AM CDT Perfecto Clement MD LAB BLOOD ORDERABLES Final R esult Performing Organization Address [facility] [place] Co de Phone Number [facility] [address] [place] [address] * Pernicious Anemia [place] (12/02/2024 9:54 AM CDT) [facility] [address] Vitamin B-12 448 180 - 914 ng/L 12/04/2024 1:48 PM CDT [place] Comment: Test Performed by: [place] [address] [employer]: Sunny Taylor Ph.D.; CLIA# [id number] Blood 12/02/2024 9:54 AM CDT 12/03/2024 3:50 PM CDT Perfecto Clement MD LAB BLOOD ORDERABLES Final R esult Performing Organization Address [place]/[facility]/ZIP Co de Phone Number [place] [address] [place] [address], * Vitamin D, Total (12/02/2024 9:54 AM CDT) [facility] [address] Vitamin D, Total 35.8 ng/mL 12/04/19 4:02 PM CDT [facility] Comment: Deficient <20 Insufficient 20-<30 Sufficient 30-100 Vitamin D2/D3 fractionation is recommended at the discretion of the clinician if Total Vitamin D is within deficient or insufficient range. Blood 12/02/2024 9:54 AM CDT 12/03/2024 1:22 PM CDT Perfecto Clement MD LAB BLOOD ORDERABLES Final R esult Performing Organization Address [facility] de Phone Number [facility] [address] [place] [phone] * (ABNORMAL) Iron and TIBC (12/02/2024 9:54 AM CDT) Pathologist [facility] Iron (FE) 84 37 - 170 mcg/dL 12/03/2024 3:35 PM CDT [facility] TIBC 260(L) 261 - 497 mcg/dL 12/03/2024 3:51 PM CDT [facility] Iron Saturation 32 14 - 34 % 3:51 PM CDT [facility] Blood (Blood, Venous) 12/02/2024 9:54 AM CDT 12/03/2024 1:22 PM CDT Perfecto Clement MD LAB BLOOD ORDERABLES Final R [facility] Performing Organization Address [facility] de Phone Number [facility] [address] [place] [phone] * (ABNORMAL) CBC ([employer]) (12/02/2024 9:54 AM CDT) WBC 6.8 3.5 - 10.5 K/uL 12/02/2024 10:15 AM CDT [facility] [place] RBC 3.81(L) 3.90 - 5.00 M/uL 12/02/2024 10:15 AM CDT [facility] [place] Hemoglobin 11.5(L) 12.0 - 15.5 g/dL 12/02/2024 10:15 AM CDT [facility] [place] Hematocrit 33.8(L) 35.0 - 44.0 % 12/02/2024 10:15 AM CDT [facility] Platelets 298 150 - 450 K/uL 12/02/2024 10:15 AM CDT [facility] MCV 88.7 81.6 - 98.3 fL 12/02/2024 10:15 AM CDT [facility] MCH 30.2 26.0 - 32.0 pg 12/02/2024 10:15 AM CDT [facility] MCHC 34.0 32.0 - 36.0 g/dL 12/02/2024 10:15 AM CDT [facility] RDW 11.9 11.9 - 15.5 % 12/02/2024 10:15 AM CDT [facility] Blood (Blood, Venous) 12/02/2024 9:54 AM CDT 12/02/2024 9:54 AM CDT Perfecto Clement MD LAB BLOOD ORDERABLES Final R esult [facility] [address] [place] [address] * Phosphorus (12/02/2024 9:54 AM CDT) Phosphorus 3.5 2.5 - 4.5 mg/dL 12/03/2024 3:31 PM CDT [facility] 12/02/2024 9:54 AM CDT 12/02/2024 12:27 PM CDT Perfecto Clement MD LAB BLOOD ORDERABLES Final R esult [facility] [address] [place] [address] * (ABNORMAL) Magnesium (12/02/2024 9:54 AM CDT) Only the most recent of3 resultswithin the time period is included. Magnesium 1.2(L) 1.6 - 2.3 mg/dL 12/02/2024 1:27 PM CDT [facility] Blood (Blood, Venous) 12/02/2024 9:54 AM CDT 12/02/2024 12:27 PM CDT Perfecto Clement MD LAB BLOOD ORDERABLES Final R [facility] Performing Organization Address [facility] Co de Phone Number [facility] [address] [place] [address] * Ferritin (12/02/2024 9:54 AM CDT) Pathologist [facility] Ferritin 153 11 - 264 ng/mL 12/02/2024 1:35 PM CDT [facility] Comment: The results from this or any other diagnostic test should be used and interpreted only in the context of the overall clinical picture. Biotin levels in serum remain elevated for up to 24 hours after oral or intravenous biotin administration and may interfere with this assay to produce unreliable results. Heterophilic antibodies in serum or plasma samples may cause interference in immunoassays. Exposure to animal antigens, either in the environment or as part of treatment or imaging procedures, may have circulating anti-animal antibodies present. These antibodies may interfere with the assay reagents to produce unreliable results. Results which are inconsistent with clinical observations indicate the need for additional testing. Blood (Blood, Venous) 12/02/2024 9:54 AM CDT 12/02/2024 12:24 PM CDT Perfecto Clement MD LAB BLOOD ORDERABLES Final R [facility] Performing Organization Address [facility] de Phone Number [facility] [address] [place] [address] * (ABNORMAL) Basic metabolic panel (12/02/2024 9:54 AM CDT) Only the most recent of2 resultswithin the time period is included. Sodium 128(L) 135 - 145 mEq/L 12/02/2024 1:27 PM CDT [facility] Potassium 3.7 3.5 - 5.1 mEq/L 12/02/2024 1:27 PM CDT [facility] Chloride 94(L) 98 - 107 mEq/L 12/02/2024 1:27 PM CDT [facility] CO2 24 22 - 29 mmol/L 12/02/2024 1:27 PM T [facility] Creatinine 1.69(H) 0.40 - 1.20 mg/dL 12/02/2024 1:27 PM T [facility] BUN 26(H) 5 - 25 mg/dL 12/02/2024 1:27 PM T [facility] Glucose 110(H) 70 - 100 mg/dL 12/02/2024 1:27 PM [facility] Calcium, Total,S 10.3(H) 8.4 - 10.2 mg/dL 12/02/2024 1:27 PM [facility] Anion Gap 10 4 - 13 12/02/2024 1:27 PM [facility] Comment: The anion gap is calculated with the following formula: AGAP = Na ? (Cl + CO2). Fasting? Unknown 12/02/2024 9:54 AM T [facility] Blood (Blood, Venous) 12/02/2024 9:54 AM CDT 12/02/2024 12:27 PM CDT us Perfecto Clement MD LAB BLOOD ORDERABLES Final R esult [facility] [address] [place] [address] [facility] [address] [place] [phone] * Microalbumin/Creatinine Ratio (12/02/2024 9:44 AM CDT) Microalbumin, U <6.0 0.0 - 16.6 mg/L 12/03/2024 5:14 PM [facility] Creatinine, Urine 40 mg/dL 12/03/2024 5:24 PM [facility] Comment: No established reference range. Microalb/Creat Ratio see below 0 - 24 mg/g 12/03/2024 5:24 PM [facility] Comment: Microalbumin value outside of detectable range. Unable to report Microalbumin/Creatinine ratio. Consider 24-hour collection if clinically indicated. Urine 12/02/2024 9:44 AM CDT 12/03/2024 1:22 PM CDT Perfecto Clement MD LAB URINE ORDERABLES Final R esult [facility] [address] [place] [address] * X-ray chest 2 views (11/13/2024 9:03 AM CDT) Anatomical Region Laterality Modality Body, Chest, Lung Computed Radio graphy Impressions 11/13/2024 9:27 AM CDT 1. No sign of congestive heart failure. 2. Moderate-sized hiatal hernia. 3. Old, healed granulomatous disease of the chest. 4. Sclerotic focus in the proximal left humerus, nonspecific but probably a bone infarction Narrative 11/13/2024 9:27 AM CDT INDICATION: CHF?. Possible congestive heart failure. COMPARISON: None FINDINGS: CXR: Min Two views: Frontal and lateral: Heart size and vascularity are within normal limits. No pulmonary venous congestion or interstitial edema. No pulmonary infiltrates or pleural effusions. No pneumothorax. There are calcified right lung granulomas best seen on the lateral radiograph. There is a large hiatal hernia. There is a sclerotic lesion in the proximal left humerus, likely a bone infarction. Procedure Note Ana Reyes MD - 11/13/2024 INDICATION: CHF?. Possible congestive heart failure. COMPARISON: None FINDINGS: CXR: Min Two views: Frontal and lateral: Heart size and vascularity are within normal limits. No pulmonary venouscongestion or interstitial edema. No pulmonary infiltrates or pleural effusions. No pneumothorax. Thereare calcified right lung granulomas best seen on the lateral radiograph. There is a large hiatal hernia. There is a sclerotic lesion in the proximal left humerus, likely a boneinfarction. IMPRESSION: 1. No sign of congestive heart failure. 2. Moderate-sized hiatal hernia. 3. Old, healed granulomatous disease of the chest. 4. Sclerotic focus in the proximal left humerus, nonspecific but probablya bone infarction Paul Osorio MD IMG XR PROCEDURES Nataly l Result * (ABNORMAL) NT-proBNP (11/07/2024 11:16 AM CDT) NT-proBNP 458(H) 20 - 299 pg/mL 11/08/2024 1:19 PM CDT [facility] Comment: Cefoxitin sodium and sodium azide may result in falsely decreased NT-proBNP results. ~ ~ ~ ~ ~ ~ ~ ~ ~ ~ ~ ~ ~ ~ ~ ~ ~ ~ ~ ~ ~ ~ ~ ~ ~ ~ ~ ~ ~ ~ ~ ~ In Emergency Department Settings: Use the following guidelines for interpretation of results in the context of heart failure (HF): NT-proBNP Result Patient Age Interpretation <300 pg/mL Any HF unlikely >=450 pg/mL 22 - <50 yrs HF likely >=900 pg/mL 50 - <75 yrs HF likely >=1800 pg/mL >=75 yrs HF likely For each of the age groups listed above, results between 300pg/mL and the upper limit indicated should be considered as indeterminate for heart failure. Other causes of elevated NT-proBNP should be considered. ~ ~ ~ ~ ~ ~ ~ ~ ~ ~ ~ ~ ~ ~ ~ ~ ~ ~ ~ ~ ~ ~ ~ ~ ~ ~ ~ ~ ~ In Outpatient Settings: Use the following guidelines for interpretation of results in the context of heart failure (HF): NT-proBNP Result Patient Age Interpretation <125 pg/mL Any HF unlikely Results >=125 pg/mL, regardless of patient age, can be used to identify patients who require further cardiac investigation and/or differential diagnosis with non-heart failure conditions which could result in natriuretic peptides elevations. ~ ~ ~ ~ ~ ~ ~ ~ ~ ~ ~ ~ ~ ~ ~ ~ ~ ~ ~ ~ ~ ~ ~ ~ ~ ~ ~ ~ ~ Results of this test should be used in accordance with the appropriate clinical guidelines and in conjunction with clinical presentation and other diagnostic tests. Heterophilic antibodies in serum or plasma samples may cause interference in immunoassays. These antibodies may be present in blood samples from individuals regularly exposed to animals or who have been treated with animal serum products. Results that are inconsistent with clinical observations indicate the need for additional testing. Blood (Blood, Venous) 11/07/2024 11:16 AM CDT 11/08/2024 12:22 PM CDT us Paul Osorio MD LAB BLOOD ORDERABLES F inal Result [facility] [address] [place] [address] * (ABNORMAL) CBC Branch Off w/Diff (11/05/2024 11:01 AM CDT) WBC 7.4 3.5 - 10.5 K/uL 11/05/2024 11:05 AM CDT [facility] [place] RBC 3.76(L) 3.90 - 5.00 M/uL 11/05/2024 11:05 AM CDT [facility] [place] Hemoglobin 11.6(L) 12.0 - 15.5 g/dL 11/05/2024 11:05 AM CDT [facility] [place] Hematocrit 34.0(L) 35.0 - 44.0 % 11/05/2024 11:05 AM CDT [facility] [place] Platelets 322 150 - 450 K/uL 11/05/2024 11:05 AM CDT [facility] [place] MCV 90.4 81.6 - 98.3 fL 11/05/2024 11:05 AM CDT [facility] [place] MCH 30.9 26.0 - 32.0 pg 11/05/2024 11:05 AM CDT [facility] [place] MCHC 34.1 32.0 - 36.0 g/dL 11/05/2024 11:05 AM CDT [facility] [place] RDW 11.8(L) 11.9 - 15.5 % 11/05/2024 11:05 AM CDT [facility] [place] Lymphocytes % 14.4 % 11/05/2024 11:05 AM CDT [facility] [place] Mid-size Cells 10.8 % 11/05/2024 11:05 AM CDT [facility] [place] Granulocytes/Rossana trophils 74.8 % 11/05/2024 11:05 AM CDT [facility] [place] Lymphocytes Absolute 1.1 0.9 - 2.9 K/uL 11/05/2024 11:05 AM CDT [facility] [place] MIDS Absolute 0.8 0.4 - 1.5 K/uL 11/05/2024 11:05 AM CDT [facility] Granulocytes/Rossana trophils Absolute 5.5 1.7 - 7.0 K/uL 11/05/2024 11:05 AM CDT [facility] [place] Blood 11/05/2024 11:0 1 AM CDT 11/05/2024 11:01 AM CDT us Perfecto Clement MD LAB BLOOD ORDERABLES Final R esult [facility] [address] [place] [address] * (ABNORMAL) Renal function panel (11/05/2024 11:01 AM CDT) Albumin, Serum 4.2 3.5 - 5.0 g/dL 11/06/2024 2:20 PM [facility] Sodium 128(L) 135 - 145 mEq/L 11/06/2024 2:20 PM [facility] Potassium 3.9 3.5 - 5.1 mEq/L 11/06/2024 2:20 PM [facility] Chloride 95(L) 98 - 107 mEq/L 11/06/2024 2:20 PM [facility] CO2 23 22 - 29 mmol/L 11/06/2024 2:20 PM [facility] BUN 19 5 - 25 mg/dL 11/06/2024 2:20 PM [facility] Creatinine 1.36(H) 0.40 - 1.20 mg/dL 11/06/2024 2:20 PM [facility] Glucose 114(H) 70 - 100 mg/dL 11/06/2024 2:20 PM [facility] Calcium, Total,S 9.6 8.4 - 10.2 mg/dL 11/06/2024 2:20 PM [facility] Phosphorus 2.7 2.5 - 4.5 mg/dL 11/06/2024 2:20 PM [facility] Anion Gap 10 4 - 13 11/06/2024 2:20 PM CDT [facility] Comment: The anion gap is calculated with the following formula: AGAP = Na ? (Cl + CO2). Fasting? Unknown 11/05/2024 11:01 AM CDT [facility] Blood (Blood, Venous) 11/05/2024 11:01 AM CDT 11/06/2024 12:42 PM CDT Perfecto Clement MD LAB BLOOD ORDERABLES Final R esult Performing Organization Address [facility] Co de Phone Number [facility] [address] [place] [address] * Urine culture (11/05/2024 10:15 AM CDT) Urine Culture No Growth 11/06/2024 1:34 PM CDT [facility] Urine (Urine, Clean Catch) 11/05/2024 10:15 AM CDT 11/06/2024 1:31 PM CDT Comment:Urine Culture Perfecto Clement MD LAB MICROBIOLOGY - GENERAL O RDERABLES Final Result Performing Organization Address [facility] Phone Number [facility] [address] [place] [address] * (ABNORMAL) TSH (10/23/2024 11:19 AM CDT) TSH, Sensitive 0.16(L) 0.46 - 4.68 mIU/L 10/24/2024 1:42 PM CDT [facility] Comment: The results from this or any other diagnostic test should be used and interpreted only in the context of the overall clinical picture. Biotin levels in serum remain elevated for up to 24 hours after oral or intravenous biotin administration and may interfere with this assay to produce unreliable results. Heterophilic antibodies in serum or plasma samples may cause interference in immunoassays. Exposure to animal antigens, either in the environment or as part of treatment or imaging procedures, may have circulating anti-animal antibodies present. These antibodies may interfere with the assay reagents to produce unreliable results. Results which are inconsistent with clinical observations indicate the need for additional testing. Blood (Blood, Venous) 10/23/2024 11:19 AM CDT 10/24/2024 12:36 PM CDT Perfecto Clement MD LAB BLOOD ORDERABLES Final R esult Performing Organization Address [facility] de Phone Number [facility] [address] [place] [address] * T4, free (10/23/2024 11:19 AM CDT) Free T4 1.46 0.78 - 2.19 ng/dL 10/25/2024 12:07 PM CDT [facility] Comment: The results from this or any other diagnostic test should be used and interpreted only in the context of the overall clinical picture. Heterophilic antibodies in serum or plasma samples may cause interference in immunoassays. Exposure to animal antigens, either in the environment or as part of treatment or imaging procedures, may have circulating anti-animal antibodies present. These antibodies may interfere with the assay reagents to produce unreliable results. Results which are inconsistent with clinical observations indicate the need for additional testing. 10/23/2024 11:1 9 AM CDT 10/24/2024 12:36 PM CDT Perfecto Clement MD LAB BLOOD ORDERABLES Final R [facility] Performing Organization Address [facility] Co de Phone Number [facility] [address] [place] [phone] from Last 3 Months Insurance [facility] MEDICARE ADVANTAGE Advance Directives For more information, please contact: [phone] Documents on File Type Date Recorded Patient [employer] POLST Order Form 01/24/2024 7:31 AM * Full Code (Latest Code Status on File) Date Activated Date Inactivated Comments 05/25/2023 1:31 PM 05/28/2023 1:28 PM Care Teams Steward/Stewardess Club Car Relationship Specialty Start Date End Date Perfecto Clement MD [address] [place] [address] PCP - General Family Medicine 02/02/21
--- OUTSIDE RECORDS SUMMARY | 2025-01-22 17:37 | XMS_ITS | Encounter Summary ---
Author Organization [facility] er Address [address] [place] [address] Care Team Providers Care Blender/Braze Applicator Name Role Phone Perfecto Clement MD Primary Care Provider [phone] Encounter Details Date Type Department Care Team (Late st Contact Info) Description 12/03/2024 Results Follow-Up [address] [address] Perfecto Clement MD [address] [place] [phone] Magnesium, Ferritin, Iron and TIBC, Additional followed-up results: 7 Social History Tobacco Use Types Packs/Day Years [...] from your doctor or pharmacy? Never 07/04/2024 [facility] Utilities Answer Date Recorded In the past 12 months has e [employer], gas, oil, or water [email or web address] threatened to shut off services in your [...] week 07/04/2024 How often do you attend presybeterian or pentecostal serv ices? Never 07/04/2024 Do you belong to any clubs o r organizations such as presybeterian groups, unions, fraternal or athletic groups, or [...] Date Recorded PHQ-9 Total Score 0 10/08/2024 [facility] - Occupational [...] place to sleep or slept in a jail (including now)? No 09/20/2023 Housing Stability Vital Sign Answer Sharath e Recorded In the last 12 months, was t here a time when you were not able to pay the mortgage or rent on time? No 07/04/2024 In the past 12 months, how m any times have you moved where you were living? 0 07/04/2024 At any time in the past 12 m [facility], were you homeless or living in a jail (including now)? No 07/04/2024 Interpersonal Safety Questionnaire [...] Master's degree (e.g., MA, MS, Nicolette, MEd, GTA, YVAN) 02/02/2021 Comments No Sex and Gender [...] on filedocumented in this encounter Care Teams Blender/Braze Applicator Relationship Specialty Start Date End Date Perfecto Clement MD [address] [place] [address] PCP - General Family Medicine 02/02/21 documented as of this encounter
--- OUTSIDE RECORDS SUMMARY | 2025-01-22 17:37 | XMS_ITS | Encounter Summary ---
Author Organization [facility] er Address [address] [place] [address] Care Team Providers Care Retirement Plan Counselor Name Role Phone Perfecto Clement MD Primary Care Provider [phone] Encounter Details Date Type Department Care Team (Late st Contact Info) Description 11/28/2024 Telephone [email or web address] [address] [place] [phone] Perfecto Clement MD [address] [phone] Social History Tobacco Use Types Packs/Day Years [...] from your doctor or pharmacy? Never 07/04/2024 [facility] Utilities Answer Date Recorded In the past 12 months has [employer], oil, or water [employer] threatened to shut off services in your [...] week 07/04/2024 How often do you attend episcopal or synagogue serv ices? Never 07/04/2024 Do you belong to any clubs o r organizations such as episcopal groups, unions, fraternal or athletic groups, or [...] Date Recorded PHQ-9 Total Score 0 10/08/2024 [facility] - Occupational [...] place to sleep or slept in a [facility]p (including now)? No 09/20/2023 Housing Stability Vital Sign Answer Sharath e Recorded In the last 12 months, was t here a time when you were not able to pay the mortgage or rent on time? No 07/04/2024 In the past 12 months, how m any times have you moved where you were living? 0 07/04/2024 At any time in the past 12 m [facility], were you homeless or living in a mcfp (including now)? No 07/04/2024 Interpersonal Safety Questionnaire [...] Master's degree (e.g., MA, MS, Nicolette, MEd, LOUNGE CAR ATTENDANT, YVAN) 02/02/2021 Comments No Sex and Gender [...] on filedocumented in this encounter Care Teams Retirement Plan Counselor Relationship Specialty Start Date End Date Perfecto Clement MD [address] [phone] PCP - General Family Medicine 02/02/21 documented as of this encounter
--- OUTSIDE RECORDS SUMMARY | 2025-01-22 17:37 | XMS_ITS | Encounter Summary ---
Author Organization [facility] er Address [address] [place] [address] Care Team Providers Care Clinical Program Director Name Role Phone Perfecto Clement MD Primary Care Provider [phone] Encounter Details Date Type Department Care Team (Late st Contact Info) Description 12/28/2024 Orders Only [place] [address] [id number] Perfecto Clement MD [address] [place] [phone] High urine leukocyte count (Primary Dx) Social History Tobacco Use Types Packs/Day Years [...] from your doctor or pharmacy? Never 07/04/2024 [facility] Utilities Answer Date Recorded In the past 12 months has e [employer] gas, oil, or water [employer] threatened to shut off services in your [...] week 07/04/2024 How often do you attend religion or methodist serv ices? Never 07/04/2024 Do you belong to any clubs o r organizations such as religion groups, unions, fraternal or athletic groups, or [...] Date Recorded PHQ-9 Total Score 0 10/08/2024 [facility] of Occupat ional Health - Occupational [...] any time in the past 12 m onths, were you homeless or living in a [...] Master's degree (e.g., MA, MS, Nicolette, MEd, [employer], YVAN) 02/02/2021 Comments No Sex and Gender Information Value Date Recorded Sex Assigned at Not on file Legal Sex Female 9:10 PM CDT Gender Identity Not on file Sexual Orientation Not on file Occupation Industry Job Start Date Job End Date Retired Not on file Not on file Not on file documented as of this encounter Progress Notes * Perfecto Clement MD - 12/28/2024 8:37 AM CDT Diagnosis Plan 1. High urine leukocyte count Add-On Test Request Add-On Test Request documented in this encounter Plan of Treatment Not on file documented as of this encounter Procedures Procedure Name Priority Date/Time Associated Diagnosis Comments ADD-ON TEST REQUEST Routine 12/28/2024 8 :37 AM CDT High urine leukocyte count documented in this encounter Results * Add-On Test Request (12/28/2024 8:37 AM CDT) Add-on Testing SEE BELOW 12/28/2024 11:19 PM CDT [facility] Comment: Unable to add on urine culture 12/28/2024 8:37 AM CDT 12/28/2024 8:37 AM CDT Perfecto Clement MD LAB BLOOD ORDERABLES Final R esult [facility] [address] [place] [address] documented in this encounter Visit Diagnoses Diagnosis High urine leukocyte count- Primary documented in this encounter Care Teams Clinical Program Director Relationship Specialty Start Date End Date Perfecto Clement MD [address] [place] [address] PCP - General Family Medicine 02/02/21 documented as of this encounter
--- OUTSIDE RECORDS SUMMARY | 2025-01-22 17:37 | XMS_ITS | Encounter Summary ---
Author Organization [facility] er Address [address] [place] [address] Care Team Providers Care Pl Sql Developer Name Role Phone Perfecto Clement MD Primary Care Provider Reason for Visit * Reason Onset Date Comments [facility] Referrals 01/02/2025 DME - Compression Socks 01/02/2025 Encounter Details Date Type Department Care Team (Late st Contact Info) Description 01/02/2025 Telephone [place] [address] [place] [id number] Perfecto Clement MD [address] [facility] [address] [place] [address] [facility] Referrals; DME - Compression Socks Social History Tobacco Use Types Packs/Day Years [...] from your doctor or pharmacy? Never 07/04/2024 [facility] Utilities Answer Date Recorded In the [...] How often do you attend baptist or worship serv ices? Never 07/04/2024 Do you belong [...] Date Recorded PHQ-9 Total Score 0 10/08/2024 [facility] of Occupat ional Health - Occupational Stress [...] any time in the past 12 m [facility], were you homeless or living in a [...] Master's degree (e.g., MA, MS, Nicolette, MEd, RADIO TELEVISION TECHNICAL DIRECTOR, YVAN) 02/02/2021 Comments No Sex and Gender Information Value Date Recorded Sex Assigned at Not on file Legal Sex Female 9:10 PM CDT Gender Identity Not on file Sexual Orientation Not on file Occupation Industry Job Start Date Job End Date Retired Not on file Not on file Not on file documented as of this encounter Miscellaneous Notes * Telephone Encounter - Aretha Vega - 01/02/2025 2:02 PM CDT Faxed referrals to Urology, Radiology, and BUFFING MACHINE TENDER to [facility] [place]Note 2]. Faxed DME order for Compression Stockings to [facility] in [place]. documented in this encounter Plan of Treatment Not on file documented as of this encounter Visit Diagnoses Not on filedocumented in this encounter Care Teams Pl Sql Developer Relationship Specialty Start Date End Date Perfecto Clement MD [address] [facility] [address] [place] [address] PCP - General Family Medicine 02/02/21 documented as of this encounter
--- NOTE | 2025-01-22 19:14 | ED.GENADULT ---
HPI - General Adult General Chief complaint: Extremity Pain/Injury, Lower Stated complaint: weakness Time Seen by Provider: 01/22/25 16:57 Source: patient Mode of arrival: EMS Limitations: no limitations History of Present Illness HPI narrative: 79-year-old female presenting today with knee pain. Patient does have chronic knee pain with arthritis. She takes oxycodone for pain management. However she felt that her pain got worse in the last 24 hours. She went to her primary care provider at the [facility] today and they were concerned that she had a possible DVT. Patient was sent to the ER via EMS for an ultrasound. She denies chest pain or shortness of breath. No fevers or chills. No nausea or vomiting. No increased weakness. Patient does use a cane and has to had to lean a little bit more heavily on it since her pain got worse. She does live with her daughter. Patient states that she feels safe at home getting around, does not feel that her pain has limited her mobility to the point where she would need extra services. Patient does say that she has chronic lower extremity edema and is on daily Lasix. Related Data Home Medications ?Medication ?Instructions ?Recorded ?Confirmed acetaminophen 500 mg tablet PO 01/22/25 amlodipine 2.5 mg tablet 2.5 mg PO DAILY 01/22/25 01/22/25 carvedilol 25 mg tablet 25 mg PO BID 01/22/25 01/22/25 cholecalciferol (vitamin D3) 50 50 mcg PO DAILY 01/22/25 01/22/25 mcg (2,000 unit) tablet famotidine 10 mg tablet (Heartburn 10 mg PO DAILY 01/22/25 01/22/25 Relief (famotidine)) furosemide 20 mg tablet 20 mg PO DAILY 01/22/25 01/22/25 lisinopril 40 mg tablet 40 mg PO DAILY 01/22/25 01/22/25 oxycodone 5 mg tablet PO 01/22/25 Allergies Allergy/AdvReac Type Severity Reaction Status Date / Time Unable to Assess Allergy Verified 01/22/25 17:07 Review of Systems Status of ROS: Reports: 6 or more systems reviewed and unremarkable except as noted in History and below Exam Narrative: Exam Narrative: Well-nourished well-developed elderly patient in no acute distress. Alert and oriented x3. Answers questions appropriately. Mood and affect are appropriate. Thoughts are goal oriented and rational. No tangential or magical thinking noted. Patient speaks in full sentences without needing to catch her breath. She does not appear ill or toxic. HEENT: Normocephalic atraumatic. Extraocular muscles are intact. Conjunctivae are moist without any icterus noted. Moist mucous membranes. Cardiovascular: Heart is regular rate and rhythm. Lungs: Clear to auscultation bilaterally. Extremities: Bilateral lower extremities show 2+ pitting edema bilaterally. Patient does not have any pain in her calf. Normal DP and PT pulses. No leg swelling noted, circumference of legs are symmetric bilaterally. She has pain with flexion extension of the knee. No pain in the thigh. Skin: Well perfused without any obvious rashes. Const: Vital Signs, click to edit/add: Vital Signs - 24 hr 01/22/25 17:08 01/22/25 17:10 01/22/25 17:11 Temperature 98.3 F Pulse Rate 65 63 Pulse Rate [Pulse Oximeter] 70 Respiratory Rate 18 Blood Pressure 168/83 H Blood Pressure [Ri ght Upper Arm] 150/84 H Pulse Oximetry 97 96 96 Oxygen Delivery Me thod Room Air 01/22/25 17:15 01/22/25 17:16 01/22/25 17:30 Temperature Pulse Rate 64 66 65 Pulse Rate [Pulse Oximeter] Respiratory Rate Blood Pressure 157/82 H Blood Pressure [Ri ght Upper Arm] Pulse Oximetry 96 96 96 Oxygen Delivery Me thod 01/22/25 17:31 01/22/25 17:45 01/22/25 17:46 Temperature Pulse Rate 66 62 66 Pulse Rate [Pulse Oximeter] Respiratory Rate Blood Pressure 145/75 H 145/76 H Blood Pressure [Ri ght Upper Arm] Pulse Oximetry 96 96 95 Oxygen Delivery Me thod 01/22/25 18:00 01/22/25 18:01 01/22/25 18:02 Temperature Pulse Rate 66 69 74 Pulse Rate [Pulse Oximeter] Respiratory Rate Blood Pressure 153/77 H Blood Pressure [Ri ght Upper Arm] Pulse Oximetry 96 95 95 Oxygen Delivery Me thod 01/22/25 18:15 01/22/25 18:17 01/22/25 18:30 Temperature Pulse Rate 70 69 73 Pulse Rate [Pulse Oximeter] Respiratory Rate Blood Pressure 159/82 H Blood Pressure [Ri ght Upper Arm] Pulse Oximetry 97 97 97 Oxygen Delivery Me thod 01/22/25 18:31 Temperature Pulse Rate 73 Pulse Rate [Pulse Oximeter] Respiratory Rate Blood Pressure 159/84 H Blood Pressure [Ri ght Upper Arm] Pulse Oximetry 96 Oxygen Delivery Me thod Course Course ED Course: My concern for DVT is low in this patient, however we did proceed with an ultrasound of lower extremity. This was unremarkable. Vital Signs Vital signs: Initial Vital Signs Temperature 98.3 F 01/22/25 17:08 Temperature Source Temporal Artery Scan 01/22/25 17:08 Pulse Rate 70 01/22/25 17:08 Respiratory Rate 18 01/22/25 17:08 Blood Pressure 150/84 H 01/22/25 17:08 Blood Pressure Mean 106 H 01/22/25 17:08 Pulse Oximetry 97 01/22/25 17:08 Oxygen Delivery Method Room Air 01/22/25 17:08 Vital Signs Temperature 98.3 F 01/22/25 17:08 Pulse Rate 70 01/22/25 17:08 Respiratory Rate 18 01/22/25 17:08 Blood Pressure 150/84 H 01/22/25 17:08 Pulse Oximetry 97 01/22/25 17:08 Oxygen Delivery Method Room Air 01/22/25 17:08 Temperature 98.3 F 01/22/25 17:08 Pulse Rate 73 01/22/25 18:31 Respiratory Rate 18 01/22/25 17:08 Blood Pressure 159/84 H 01/22/25 18:31 Pulse Oximetry 96 01/22/25 18:31 Oxygen Delivery Method Room Air 01/22/25 17:08 Medical Decision Making [facility] Narrative Medical decision making narrative: 79-year-old female with chronic knee pain. We discussed continue symptomatic treatment. She does have oxycodone at home which she uses to treat her pain. Recommend she follow up with her primary care clinic as needed if she needs to change her pain management regimen. Imaging Data Venous US: Attestation: I have reviewed the pertinent imaging results. Radiologist's impression: TECHNIQUE: Ultrasound venous duplex lower right extremity. Compression venous exam was performed using monge-scale, color Doppler, and spectral Doppler analysis. COMPARISON: None. FINDINGS: Deep veins: Sonographic imaging demonstrates the right common femoral, deep femoral, superficial femoral, popliteal, posterior tibial and the contralateral left common femoral veins to be fully compressible with normal color Doppler blood flow. Superficial veins: Greater saphenous vein is fully compressible. No popliteal cyst. IMPRESSION: Normal right lower extremity venous ultrasound, no sign of deep venous thrombosis. Discharge Plan Discharge Clinical Impression: Knee pain Patient Disposition: Home, Self-Care Condition: Stable Additional Instructions: Ultrasound today did not show any evidence of blood clot. Continue treating your pain as you have been, and follow-up with your primary care provider as needed. Prescriptions: No Action carvedilol 25 mg tablet 25 mg PO BID famotidine [Heartburn Relief (famotidine)] 10 mg tablet 10 mg PO DAILY amlodipine 2.5 mg tablet 2.5 mg PO DAILY acetaminophen 500 mg tablet PO furosemide 20 mg tablet 20 mg PO DAILY lisinopril 40 mg tablet 40 mg PO DAILY oxycodone 5 mg tablet PO cholecalciferol (vitamin D3) 50 mcg (2,000 unit) tablet 50 mcg PO DAILY Follow Up/Referrals: Perfecto Clement MD [Primary Care Provider, Family Practice] [facility]
== END 2025-01-22 19:23 | disposition home or self-care (01) ==
PROVIDERS: Emergency Provider Family Medicine; PCP Family Medicine
DX: M25.561 Pain in right knee (principal); R60.9 Edema, unspecified
CPT/HCPCS: 93971; 99283; 99284